=== PATIENT | female | born 1950 | race Caucasian/White ===

== ENCOUNTER → 2017-11-07 | Outpatient (CLI) | payer MEDICARE ==
--- NOTE | 2017-11-08 09:02 | MM ---
Reason for exam: screening (asymptomatic). Last mammogram was performed 1 year and 10 months ago. History: Patient is postmenopausal. Benign cyst aspiration of the right breast, 2005. Excisional biopsy of the left breast, 1989. Physical Findings: A clinical breast exam by your physician is recommended on an annual basis and results should be correlated with mammographic findings. MG 3D Screening Mammo W/Cad Bilateral CC, MLO, and XCCL view(s) were taken. Prior study comparison: January 11, 2016, bilateral MG 3d screening mammo w/cad. January 23, 2011, mammogram, performed at [facility]. The breast tissue is heterogeneously dense. This may lower the sensitivity of mammography. There are typically benign round calcifications in both breasts. Previous mammotome biopsy in the left breast. There is no discrete abnormality. There are grouped dystrophic calcifications in the left breast centrally. ASSESSMENT: Benign, BI-RAD 2 RECOMMENDATION: Routine screening mammogram of both breasts in 1 year.
== END | disposition home or self-care (01) ==
LOC: RADMAMWWP 11:13
PROVIDERS: ATTEND Family Medicine
DX: Z12.31 Encounter for screening mammogram for malignant neoplasm of breast (principal)
CPT/HCPCS: 77063; 77067

== ENCOUNTER → 2018-04-08 | Outpatient (CLI) | payer MEDICARE ==
--- NOTE | 2018-04-08 10:50 | USB ---
Reason for exam: clinical finding. History: Patient is postmenopausal. Benign cyst aspiration of the right breast, 2005. Excisional biopsy of the left breast, 1989. Physical Findings: Nurse Summary: 2.5cm nodule in the right breast at 3 o'clock (nurse dw). US Breast RT Right complete breast ultrasound includes all four quadrants, the retroareolar region and axilla. Finding demonstrates a 5.0 x 3.6 x 1.5cm oval, mixed lesion at 1 o'clock and a 1.5 x 1.9 x 0.9cm oval, cystic, complex lesion at 2 o'clock, these masses converge although these may represent recurrent abscess, biopsy is suggested after treatment with antibiotic, a 2.5 x 1.2cm oval, mixed lesion at 8:30 with solid node for which a biopsy is recommended, duct ectasia at 10 o'clock and at retroareolar complex area includes 8-9 o'clock and 2 o'clock. Diffuse edema is noted. These results were verbally communicated with the patient and result sheet given to the patient on 04/08/18. ASSESSMENT: Suspicious, BI-RAD 4 RECOMMENDATION: Ultrasound core biopsy of the right breast. (2 sites) Called with mammographic findings and has scheduled an appointment for the patient for 04/15/[address] Nazario. PRELIMINARY REPORT CALLED AND FAXED TO DR. NAZARIO ON 04/08/18.
== END ==
LOC: RADMAMWWP 08:54
PROVIDERS: ATTEND Family Medicine
DX: N61.1 Abscess of the breast and nipple (principal)

== ENCOUNTER → 2018-05-14 | Day surgery (SDC) | payer MEDICARE ==
[2018-05-14 11:36] VITALS: RESP 16; BMI 44.1
[2018-05-14 13:33] VITALS: BP 139/71; PULSE 57; TEMP 97.7
--- NOTE | 2018-05-14 13:49 | USB ---
ULTRASOUND GUIDED FNA AND CORE BIOPSY RIGHT BREAST: CLINICAL HISTORY: Abnormal ultrasound recommending biopsy of the 1:00\2:00 and 8 :30 nodule FINDINGS: The procedure was explained to the patient. The risks, complications, benefits and alternatives were discussed and any questions were answered. Informed consent was obtained. Patient was placed supine on the ultrasound table and prepped and draped in the usual sterile fashion. Utilizing a 14 gauge needle, 4 passes were made into the each of the requested nodules. Surgical clip was placed post procedure. Additional FNA sample for fluid analysis was obtained from the 8:30 o'clock position nodule Postprocedural mammogram demonstrated the clip to be in ideal position. Patient was stable throughout the procedure. Pathology is pending. All elements of maximal barrier and sterile technique were utilized. IMPRESSION: 1. Successful ultrasound guided FNA and core biopsy of the requested right breast lesions. Pathology Results: Benign RIGHT BREAST, 8:00, ASPIRATE: Predominantly macrophages and acute inflammatory cells. No cytologically malignant cells identified. A. RIGHT BREAST, 2:00, ULTRASOUND GUIDED CORE BIOPSY: Fat necrosis with prominent histiocytes, fibrosis and inflammation suggestive of trauma versus ruptured cyst. Negative for malignancy. B. RIGHT BREAST, 8:00, ULTRASOUND GUIDED CORE BIOPSY: Fat necrosis with prominent histiocytes, fibrosis and inflammation suggestive of trauma versus ruptured cyst. Negative for malignancy. Recommendation Return to routine screening mammogram in 7 months. Back on schedule for October 2018. Manage clinically. ELEAZARD
--- NOTE | 2018-05-14 14:53 | MM ---
Reason for exam: additional evaluation requested from abnormal screening. Last mammogram was performed 6 months ago. History: Patient is postmenopausal. Benign cyst aspiration of the right breast, 2005. Excisional biopsy of the left breast, 1989. MG Diagnostic Mammo RT Wo CAD CC and MLO view(s) were taken of the right breast. Prior study comparison: November 07, 2017, bilateral MG 3d screening mammo w/cad. January 11, 2016, bilateral MG 3d screening mammo w/cad. ASSESSMENT: Post procedure mammogram for marker placement RECOMMENDATION: Ultrasound of the right breast in 6 months. PENDING PATHOLOGY RESULTS.
== END ==
LOC: RADUSWWP 11:19
PROVIDERS: ATTEND Nurse Practitioner Adult Health
DX: N64.1 Fat necrosis of breast (principal); N60.31 Fibrosclerosis of right breast; R92.8 Other abnormal and inconclusive findings on diagnostic imaging of breast; Z88.1 Allergy status to other antibiotic agents; Z88.8 Allergy status to other drugs, medicaments and biological substances
CPT/HCPCS: 88305; 88173; 77065; 19083; 19084 ×2; A4648; J2001; 76942

== ENCOUNTER → 2019-03-26 | Outpatient (CLI) | payer MEDICARE | END | disposition home or self-care (01) | LOC: RADMAMWWP 12:52 | PROVIDERS: ATTEND Family Medicine | DX: Z53.9 Procedure and treatment not carried out, unspecified reason (principal) ==

== ENCOUNTER → 2019-03-27 | Outpatient (CLI) | payer MEDICARE ==
[2019-03-27 10:18] VITALS: BP 155/89; PULSE 65; RESP 18; TEMP 98.1; BMI 48.6
--- NOTE | 2019-03-27 11:23 | P.GSHP ---
History of Present Illness H&P Date: 03/27/19 Chief Complaint: abcesses both breast Gauri is a 68 year old white female with a history of an abscess in the right periareolar area which started approximately 9 months ago. At that time she had surgical excision of this site and then approximately a month later a second area of abscess occurred inferior in location in the periareolar region. She ultimately went to the operating room one time. The second area seemed to tunnel to the incision and drained through the initial incision. She had this packed in the primary care doctor's office, and this has been draining and nonhealing since approximately August 2018. She states cultures did show VRE and she was treated with a course of Levaquin. She was also treated with Jose Luis GREWAL and Dr. Nazario's office. She has not seen an infectious disease doctor. The patient's most recent mammogram and ultrasound were approximately a year ago. The studies were done at [facility] . She has not had any fever or chills. No history of any trauma to the breast. She did have an abscess in the left breast in the past but not recently. She has no evidence of any infection and place else in her body. Bilateral mammogram on 5917 this was BIRADS 2 and routine screening of both breasts in 1 year was recommended. The patient then on had a right breast ultrasound this was considered suspicious BIRADS 4 and ultrasound-guided core biopsy of the right breast 2 sites was recommended. 5 x 1.5 cm lipomatous lesion at 1:00 and a 1.9 x 1.5 cystic complex lesion at 2:00 these masses converted show that he may represent recurrent abscess and biopsy was suggested after treatment with antibiotics a 2.5-1.2 cm lipomatous lesion at 8:30 with a solid node which a biopsy was recommended. She subsequently in May 2018 underwent ultrasound-guided FNA and core biopsy of the right breast. The prostate o'clock was predominantly macrophages and acute inflammatory cells Right breast 2:00 was fat necrosis with prominent histiocytes Right breast 8:00 core biopsy showed fat necrosis with prominent histiocytes all were negative for malignancy and routine screening in 7 months was recommended. The patient has not had any further radiographic evaluation since May 2018. The patient does not drink caffeinated beverages. She does not eat chocolate on a regular basis. She does not smoke she stopped 5 years ago. She is not exposed regularly to secondhand smoke. She is not taking any hormones. Family History: father: pancreatic sister: cervical Hormonal history: menarche: 10 breast fed: no, age at first : 18 menopause: 46 BCP: none hormones: none Surgical history: 1. Tonsillectomy 2. Appendectomy 3. Bilateral knee replacement 4. Cataract surgery Medical history: 1.HTN 2. back pain/ arthritis Social: smoke:stopped 5 years ago alcohol: Occasional Marijuana: Negative - Constitutional Constitutional: Denies chills, Denies fever - EENT Comment: Cataract surgery Ears: deny: decreased hearing, tinnitus Ears, nose, mouth and throat: Reports sinus pressure, Denies headache, Denies sore throat - Breasts Breasts: bilateral: as per HPI - Cardiovascular Cardiovascular: Reports high blood pressure - Respiratory Comment: former smoker Respiratory: Reports cough - Gastrointestinal Gastrointestinal: Denies abdominal pain, Denies diarrhea, Denies nausea, Denies vomiting - Genitourinary (Female) Genitourinary: Denies dysuria, Denies hematuria - Menstruation Menstruation: Reports postmenopausal - Musculoskeletal Comment: back pain - Integumentary Integumentary: Denies pruritus, Denies rash - Neurological Neurological: Denies numbness, Denies weakness - Psychiatric Psychiatric: Reports anxiety, Reports depression - Endocrine Endocrine: Reports weight change - Hematologic/Lymphatic Comment: none - Allergic/Immunologic Allergic/Immunologic: Reports seasonal allergies Past Medical History Past Medical History: Hyperlipidemia, Hypertension, Pneumonia Additional Past Medical History / Comment(s): Arthritis History of Any Multi-Drug Resistant Organisms: None Reported Past Surgical History: Appendectomy, Breast Surgery, Heart Catheterization, Joint Replacement, Orthopedic Surgery, Tonsillectomy Additional Past Surgical History / Comment(s): Hx. right cyst aspiration, left breast excisional bx. Bilateral knee replacement Past Anesthesia/Blood Transfusion Reactions: Postoperative Nausea & Vomiting (PONV) Past Psychological History: No Psychological Hx Reported Smoking Status: Former smoker Past Alcohol Use History: Occasional Past Drug Use History: None Reported Medications and Allergies Home Medications Medication Instructions Recorded Confirmed Type Enalapril [Vasotec] 20 mg PO DAILY 05/06/18 03/27/19 History Naproxen Sodium [Aleve] 220 mg PO DAILY PRN 05/06/18 03/27/19 History PARoxetine [Paxil] 20 mg PO DAILY 05/06/18 03/27/19 History Simvastatin [Zocor] 40 mg PO HS 05/06/18 03/27/19 History Cholecalciferol [Vitamin D3 (25 5,000 unit PO DAILY 03/27/19 03/27/19 History Mcg = 1000 Iu)] Allergies Allergy/AdvReac Type Severity Reaction Status Date / Time acetaminophen [From NyQuil] Allergy Dyspnea Verified 03/27/19 10:19 dextromethorphan Allergy Dyspnea Verified 03/27/19 10:19 [From NyQuil] doxylamine [From NyQuil] Allergy Dyspnea Verified 03/27/19 10:19 pseudoephedrine [From NyQuil] Allergy Dyspnea Verified 03/27/19 10:19 tetracycline AdvReac Nausea Verified 03/27/19 10:19 Surgical - Exam Vital Signs Temp Pulse Resp BP Pulse Ox 98.1 F 65 18 155/89 96 03/27/19 10:14 03/27/19 10:14 03/27/19 10:14 03/27/19 10:14 03/27/19 10:14 BMI 48.7 - General obese - Eyes normal ocular movement - ENT no hearing loss, no congestion - Neck no masses, trachea midline - Respiratory normal respiratory effort, clear to auscultation - Cardiovascular Rhythm: regular Heart Sounds: normal: S1, S2 - Abdomen Abdomen: soft, non tender, no guarding, no rigid, no rebound - Integumentary Breast examination Breast size 50 DDD Right breast: Multi-positional exam reveals a well-healed scar in the right breast superior to the periareolar region and approximately a centimeter and a half inferior to this an open wound with purulent drainage and no definite dominant lumps or masses are felt in the breast Right axilla: No adenopathy of concern Left breast: Multi-positional exam no dominant masses or nodules of concern Left axilla: No adenopathy of concern Results No recent mammogram or ultrasound performed Assessment and Plan Assessment: Impression: 1. Chronic right breast abscess 2. Fibrocystic breast changes 3. Family history of cancer 4. Degenerative disc disease with back pain 5. Arthritis 6. History of pneumonia in the past 7. Anxiety/depression 8. BMI 48.7 Plan: 1. Cultures right breast abscess 2. Attempt at ultrasound to see if there is a pocket which can be drained in the right breast, either by ultrasound or in OR 3. Medical clearance for surgical drainage if necessary 4. Medical management of medical conditions 5. Consider infectious disease consult as this is a chronic abscess Cc: Dr. Major Nazario
== END | disposition home or self-care (01) ==
LOC: WWCWWP 09:48
PROVIDERS: ATTEND Surgery
DX: N64.9 Disorder of breast, unspecified (principal)
CPT/HCPCS: 87070; 87075; 87205

== ENCOUNTER → 2019-03-27 | Outpatient (CLI) | payer MEDICARE ==
--- NOTE | 2019-03-27 12:25 | USB ---
Reason for exam: clinical finding. History: Patient is postmenopausal. Benign US breast needle core RT of the right breast, May 14, 2018. Benign US breast needle core addl RT of the right breast, May 14, 2018. Benign US breast needle core addl RT of the right breast, May 14, 2018. Benign cyst aspiration of the right breast, 2005. Excisional biopsy of the left breast, 1989. US Breast Limited RT Right limited breast ultrasound including focal area of concern, retroareolar and axilla demonstrates a 1.6 x 2.5 x 1.9cm irregular, hypoechoic, vascular lesion at 1-2 o'clock, appears as an abscess sonographically (visibly draining per nursing) and a ductal ectasia at 9 o'clock, extent of edema in the 2 o'clock and 9 o'clock positions. These results were verbally communicated with the patient and result sheet given to the patient on 03/27/19. ASSESSMENT: Benign, BI-RAD 2 RECOMMENDATION: Surgical consultation of both breasts. Surgical management, thick prevalent fluid collection appears too complex for percutaneous drainage.
== END | disposition home or self-care (01) ==
LOC: RADUSWWP 11:27
PROVIDERS: ATTEND Surgery
DX: N64.52 Nipple discharge (principal)

== ENCOUNTER → 2019-04-29 | Outpatient (CLI) | payer MEDICARE ==
--- NOTE | 2019-04-29 10:25 | USB ---
Reason for exam: clinical finding. History: Patient is postmenopausal. Benign US breast needle core RT of the right breast, May 14, 2018. Benign US breast needle core addl RT of the right breast, May 14, 2018. Benign US breast needle core addl RT of the right breast, May 14, 2018. Benign cyst aspiration of the right breast, 2005. Excisional biopsy of the left breast, 1989. Physical Findings: Nurse Summary: palpabl lump (nurse kp). US Breast Limited RT Right limited breast ultrasound including focal area of concern, retroareolar and axilla demonstrates a 5.0 x 1.7 x 4.0cm irregular, enlarging, solid, hypoechoic, vascular lesion at 1 o'clock, increased in size when compared to previous and a dilated duct at the posterior nipple. These results were verbally communicated with the patient and result sheet given to the patient on 04/29/19. ASSESSMENT: Suspicious, BI-RAD 4 Suspicious, BI-RAD 4 abnormality (abscess) RECOMMENDATION: Surgical consultation and localization and excision of the right breast. Called Dr. Phillips's office with mammographic findings. PRELIMINARY REPORT CALLED AND FAXED TO DR. PHILLIPS ON 04/29/19.
== END | disposition home or self-care (01) ==
LOC: RADUSWWP 08:50
PROVIDERS: ATTEND Surgery
DX: R92.8 Other abnormal and inconclusive findings on diagnostic imaging of breast (principal)

== ENCOUNTER 2019-04-30 06:23 | Day surgery (SDC) | payer MEDICARE ==
--- NOTE | 2019-04-29 17:32 | P.PN ---
Beth Astorga is a 68 year old white female with a history of an abscess in the right breast periareolar area which started approximately 9 months ago. At that time she had surgical excision of this site and then approximately a month later a second area of abscess occurred inferior in location in the periareolar region. She ultimately went to the operating room one time. The second area seemed to tunnel to the incision and drained through the initial incision. She had this packed in the primary care doctor's office, and this has been draining and nonhealing since approximately August 2018. She states cultures did show VRE and she was treated with a course of Levaquin. She was also treated with Rocephin IM in Dr. Nazario's office. She has not seen an infectious disease doctor. The patient's most recent mammogram and ultrasound were approximately a year ago. The studies were done at [facility] . She has not had any fever or chills. No history of any trauma to the breast. She did have an abscess in the left breast in the past but not recently. She has no evidence of any infection and place else in her body. Bilateral mammogram on 5917 this was BIRADS 2 and routine screening of both breasts in 1 year was recommended. The patient then on 04/18 had a right breast ultrasound this was considered suspicious BIRADS 4 and ultrasound-guided core biopsy of the right breast 2 sites was recommended. Right breast 2:00 was fat necrosis with prominent histiocytes Right breast 8:00 core biopsy showed fat necrosis with prominent histiocytes all were negative for malignancy and routine screening in 7 months was recommended. The patient was seen on 03/27/2019 for chronic abscess of the right breast. She had right breast ultrasound on 12/18. This revealed a 1.6 x 2.5 x 1.9 cm irregular hypoechoic vascular lesion in 1 to 2:00 which appeared to be an abscess sonographically. This was visibly draining at the time. The patient had cultures obtained on . The cultures revealed Proteus mirabilis sensitive to cefoxitin and piperacillin/tazobactam. The patient was notified but stated at that point that the area of drainage had ceased and she was feeling better. She tentatively was scheduled for incision and drainage in the operating room and returned for repeat ultrasound prior to I&D as the drainage had stopped. However, within the last several days the drainage started again. The patient did not report any fever or chills. The patient had a right breast ultrasound on 04-29-19 which showed increased in the size of the abscess cavity in the right breast. The patient does not drink caffeinated beverages. She does not eat chocolate on a regular basis. She does not smoke she stopped 5 years ago. She is not exposed regularly to secondhand smoke. She is not taking any hormones. Family History: father: pancreatic cancer sister: cervical cancr Hormonal history: menarche: 10 breast fed: no, age at first : 18 menopause: 46 BCP: none hormones: none Surgical history: 1. Tonsillectomy 2. Appendectomy 3. Bilateral knee replacement 4. Cataract surgery Medical history: 1.HTN 2. back pain/ arthritis Social: smoke:stopped 5 years ago alcohol: Occasional Marijuana: Negative - Constitutional Constitutional: Denies chills, Denies fever - EENT Comment: Cataract surgery Ears: deny: decreased hearing, tinnitus Ears, nose, mouth and throat: Reports sinus pressure, Denies headache, Denies sore throat - Breasts Breasts: bilateral: as per HPI - Cardiovascular Cardiovascular: Reports high blood pressure - Respiratory Comment: former smoker Respiratory: Reports cough - Gastrointestinal Gastrointestinal: Denies abdominal pain, Denies diarrhea, Denies nausea, Denies vomiting - Genitourinary (Female) Genitourinary: Denies dysuria, Denies hematuria - Menstruation Menstruation: Reports postmenopausal - Musculoskeletal Comment: back pain - Integumentary Integumentary: Denies pruritus, Denies rash - Neurological Neurological: Denies numbness, Denies weakness - Psychiatric Psychiatric: Reports anxiety, Reports depression - Endocrine Endocrine: Reports weight change - Hematologic/Lymphatic Comment: none - Allergic/Immunologic Allergic/Immunologic: Reports seasonal allergies Past Medical History Past Medical History: Hyperlipidemia, Hypertension, Pneumonia Additional Past Medical History / Comment(s): Arthritis History of Any Multi-Drug Resistant Organisms: None Reported Past Surgical History: Appendectomy, Breast Surgery, Heart Catheterization, Joint Replacement, Orthopedic Surgery, Tonsillectomy Additional Past Surgical History / Comment(s): Hx. right cyst aspiration, left breast excisional bx. Bilateral knee replacement Past Anesthesia/Blood Transfusion Reactions: Postoperative Nausea & Vomiting (PONV) Past Psychological History: No Psychological Hx Reported Smoking Status: Former smoker Past Alcohol Use History: Occasional Past Drug Use History: None Reported Objective - Vital Signs Vital signs: Intake & Output 04/28/19 04/29/19 04/29/19 18:59 06:59 18:59 Weight 143.789 kg - Exam BMI 48.2 - Constitutional General appearance: Present: obese - EENT Eyes: Present: EOMI ENT: Present: hearing grossly normal - Neck Neck: Present: normal ROM - Respiratory Respiratory: bilateral: CTA - Cardiovascular Rhythm: regular Heart sounds: normal: S1, S2 - Gastrointestinal General gastrointestinal: Present: soft - Integumentary Integumentary: Present: normal turgor - Musculoskeletal Musculoskeletal: Present: gait normal - Psychiatric Psychiatric: Present: A&O x's 3, appropriate affect, intact judgment & insight - Additional findings Additional findings: Breast examination: Breast size: 50 triple D Right breast: Multiple positional exam without scar in the right breast superior to the periareolar region and approximately center and a half inferior to this an open wound with purulent drainage and approximately a 2 x 3 cm localized swelling which is believed to be in continuity with the area of drainage Right axilla: No adenopathy of concern {: Multiple positional exam no dominant masses or nodules of concern Left axilla: No adenopathy of concern Assessment and Plan Assessment: Impression: 1. Chronic right breast abscess 2. Culture positive for Proteus 3. Family history of cancer 4. Degenerative disc disease 5. Arthritis 6. Pneumonia in the past 7. Anxiety/depression 8. Obesity, BMI 48.7 Plan: 1. Cultures right breast abscess reviewed 2. Ultrasound reviewed 3. Medical management of medical conditions 4. Incision and drainage in the operating room of the area of concern 5. Consider infectious disease consult Cc: Dr. Major Nazario,
[~2019-04-30 06:23] MED LIST: DEXAMETHASONE SOD PHOSPHATE 10 MG/ML 1 ML VIAL IV ONE; HEPARIN SODIUM,PORCINE 5,000 UNIT/ML 1 ML VIAL SQ ONE; HYDROmorphone 0.5 MG/0.5 ML SYRINGE IVP PRN; LACTATED RINGERS 1,000 ML IV SCH; LIDOCAINE 1% 20 ML VIAL (10MG/ML) FOR IV START INTRADERMA PRN; ONDANSETRON 4 MG/2 ML VIAL IVP ONE; Pre Op ABX Message 1 EACH MISC MISCELLANE ONE; SCOPOLAMINE 1.5MG/72HR PATCH TRANSDERM ONE
[2019-04-30] MEDS ORDERED: LACTATED RINGERS 1,000 ML IV ONE (06:42)
[2019-04-30] MEDS ORDERED: PIPERACILLIN-TAZOBACTAM 3.375 GM in SODIUM CHLORIDE 0.9% 100 ML IVPB STA (07:11)
[2019-04-30] MEDS ORDERED: SUCCINYLCHOLINE CHLORIDE VIAL 200 MG/10 ML VIAL IV ONE (07:23)
[2019-04-30] MEDS ORDERED: ePHEDrine SULFATE/0.9% NACL/PF 50 MG/5 ML SYRINGE IV ONE (07:23)
[2019-04-30] MEDS ORDERED: LIDOCAINE 1% INJ 10MG/ML (20 ML MDV) ONE (07:23)
[2019-04-30] MEDS ORDERED: PROPOFOL 10 MG/ML 20 ML VIAL IV ONE (07:23)
[2019-04-30] MEDS ORDERED: MIDAZOLAM 2 MG/2 ML VIAL ONE (07:23)
[2019-04-30] MEDS ORDERED: HEPARIN SODIUM,PORCINE 5,000 UNIT/ML 1 ML VIAL SQ ONE (07:30)
--- NOTE | 2019-04-30 08:46 | P.OP ---
Date of Procedure: 04/30/19 Preoperative Diagnosis: Chronic abscess right breast periareolar area Postoperative Diagnosis: Same Procedure(s) Performed: Incision and drainage into chronic abscess cavity with removal of the thickened cavity wall Anesthesia: LANIEA Surgeon: Nadiya Phillips Estimated Blood Loss (ml): 5 IV fluids (ml): 500 Pathology: other (Thickened abscess cavity wall) Condition: stable Disposition: same day Indications for Procedure: 68-year-old white female with chronic right breast abscess, treated with multiple antibiotics and persistent noted on ultrasound as well as drainage from the area Operative Findings: Thickened abscess cavity wall no purulence noted Description of Procedure: Patient is a white female who presented with a chronic right breast abscess. This had been treated with multiple antibiotics and an attempt approximately several months ago with I&D. Despite this the patient has persistent drainage from this site. Most recent cultures revealed Proteus mirabilis. The patient was taken to the operating room and following induction of anesthesia the right breast was prepped and draped in a sterile fashion. Periareolar incision was made. This was cut into the thickened breast tissue. There was marked thickening of the area with a loculated small pockets throughout the thickened chavira of the abscess cavity but no discrete purulence noted. The wall of the cavity encompassed an area approximately 15 cm x 15 cm. The thickened wall was excised where possible for culture and biopsy. Hemostasis was attained using the Harmonic scalpel. The wound was well irrigated using a liter of saline. A portion of the wall was sent for culture and the remainder sent for biopsy. The thickened wall extended up under the nipple and this area was excised as well and debrided. Following this after we assured that hemostasis was attained the wound was packed using 2 Kerlix. The patient tolerated the procedure in stable condition. All instrument and sponge counts were correct at the end of the case.
--- NOTE | 2019-04-30 08:49 | P.DS ---
Providers Attending physician: Nadiya Phillips Primary care physician: Major Nazario Plan - Discharge Summary Discharge Rx Participant: No New Discharge Prescriptions: No Action Simvastatin [Zocor] 40 mg PO HS PARoxetine [Paxil] 20 mg PO HS Naproxen Sodium [Aleve] 220 mg PO DAILY PRN PRN Reason: Pain Enalapril [Vasotec] 20 mg PO HS Cholecalciferol [Vitamin D3 (25 Mcg = 1000 Iu)] 5,000 unit PO DAILY Discharge Medication List Enalapril [Vasotec] 20 mg PO HS 05/06/18 [History] Naproxen Sodium [Aleve] 220 mg PO DAILY PRN 05/06/18 [History] PARoxetine [Paxil] 20 mg PO HS 05/06/18 [History] Simvastatin [Zocor] 40 mg PO HS 05/06/18 [History] Cholecalciferol [Vitamin D3 (25 Mcg = 1000 Iu)] 5,000 unit PO DAILY 03/27/19 [History] Follow up Appointment(s)/Referral(s): Nadiya Phillips MD [STAFF PHYSICIAN] - 1-2 Days Activity/Diet/Wound Care/Special Instructions: Do not drive today, do not drive if using narcotic pain medicine wear support bra at all times when she goes home Patient may shower after 48 hours Patient discharged on Augmentin Discharge Disposition: HOME SELF-CARE
[2019-04-30 09:03] VITALS: TEMP 96.8
[2019-04-30 10:58] VITALS: BP 111/65; PULSE 63; RESP 18
== END 2019-04-30 11:25 | disposition home or self-care (01) ==
LOC: OR 06:23
PROVIDERS: ATTEND Surgery
DX: N61.1 Abscess of the breast and nipple (principal); B96.4 Proteus (mirabilis) (morganii) as the cause of diseases classified elsewhere; I10 Essential (primary) hypertension; E78.5 Hyperlipidemia, unspecified; M46.96 Unspecified inflammatory spondylopathy, lumbar region; F41.9 Anxiety disorder, unspecified; F32.9 Major depressive disorder, single episode, unspecified; E66.9 Obesity, unspecified; Z68.42 Body mass index [BMI] 45.0-49.9, adult; Z87.01 Personal history of pneumonia (recurrent); Z87.891 Personal history of nicotine dependence; Z80.9 Family history of malignant neoplasm, unspecified; Z96.653 Presence of artificial knee joint, bilateral; Z98.49 Cataract extraction status, unspecified eye; Z79.1 Long term (current) use of non-steroidal anti-inflammatories (NSAID); Z79.899 Other long term (current) drug therapy; Z88.1 Allergy status to other antibiotic agents; Z88.8 Allergy status to other drugs, medicaments and biological substances
CPT/HCPCS: 19120; 88304; 87070; 87205; 87075; 87077; 87186; J2543; J2250; J0330; J1644; J1100; J2405; J2001; J2704

== ENCOUNTER → 2019-05-01 | Outpatient (CLI) | payer MEDICARE ==
[2019-05-01 12:42] VITALS: BP 95/63; PULSE 57; RESP 18; TEMP 97.6; BMI 48.2
--- NOTE | 2019-05-01 13:05 | P.PN ---
Progress Note - Text Progress Note Date: 05/01/19 Gauri is a 68-year-old white female status post right breast incision and drainage of an abscess cavity with resection of the wall of the cavity on [id number]. She presents today for packing to be changed. She is doing well without complaints. Physical examination: Right breast: Incision clean and dry, packing is removed and the wound appears to be clean granulation tissue and no evidence of any infection or bleeding The packing was applied this is a moist Kerlix and approximately three quarters of the Kerlix was able to be placed. Impression: 1. Patient doing well status post I&D of chronic abscess with resection of wall the abscess cavity. 2. No evidence of infection Plan: 1. Patient on Augmentin at home continue into prescription completed 2. Packing changed daily 3. Follow-up next week CC: DR. Nazario
== END ==
LOC: WWCWWP 12:30
PROVIDERS: ATTEND Surgery
DX: Z53.9 Procedure and treatment not carried out, unspecified reason (principal)

== ENCOUNTER → 2019-05-08 | Outpatient (CLI) | payer MEDICARE ==
[2019-05-08 11:58] VITALS: BP 158/93; PULSE 54; RESP 20; TEMP 97.8; BMI 48.2
--- NOTE | 2019-05-08 12:09 | P.PN ---
Progress Note - Text Progress Note Date: 05/08/19 Gauri is a 68-year-old white female status post incision and drainage of a large right breast abscess performed on 04-30-19. Is doing well at this time and is continuing packing changes on a daily basis. She's had no fever or chills. No erythema of the breast. She did finish a course of antibiotic therapy, Augmentin. Pathology report revealed pigmented macrophages and occasional mixed inflammatory cells Physical exam: Area of the right breast packing changed Clean granulation tissue at wound base No evidence of active infection at this time Impression: 1. Patient doing well status post excision of abscess cavity 3. Cultures positive for Proteus mirabilis, coag-negative staph, and anaerobic gram-positive cocci Name: 1. Continue present dressing changes 2. We'll consider infectious disease consult 3. Follow-up here in 2 weeks Cc: Dr. Major Nazario
== END | disposition home or self-care (01) ==
LOC: WWCWWP 11:21
PROVIDERS: ATTEND Surgery
DX: Z53.9 Procedure and treatment not carried out, unspecified reason (principal)

== ENCOUNTER → 2019-05-23 | Outpatient (CLI) | payer MEDICARE ==
[2019-05-23 16:24] VITALS: BP 131/71; PULSE 68; RESP 20; TEMP 98; BMI 48.3
--- NOTE | 2019-05-23 16:33 | P.PN ---
Subjective Progress Note Date: 05/23/19 Principal diagnosis: Abscess right breast status post incision and drainage, new area of firmness near the site Gauri is a 68-year-old white female status post incision and drainage of a large right breast abscess performed on 04-30-19. She Is doing well at this time and is continuing packing changes on a daily basis. She's had no fever or chills. No erythema of the breast. She is not taking any antibiotics at this time. The patient does note that approximately 2 days ago there was some increasing firmness in the lateral aspect of the breast near the wound site. Pathology report revealed pigmented macrophages and occasional mixed inflammatory cells Physical exam: Area of the right breast packing changed Clean granulation tissue at wound base No evidence of active infection at this time Physical exam: Lungs: Clear Heart: Regular rate and rhythm right breast abscess drainage site clean and dry good granulation tissue and no evidence of any infection The patient notes some firmness in the lateral periareolar region on the right. Examination reveals firmness at this site to be approximately 3 cm x 2 cm. The area was aspirated to ascertain if there was any purulent drainage from the firm area. No cement possible was obtained. This appeared to be scar tissue and was sent for cultures. Impression: 1. Healing right breast at I&D abscess site 2. New area of firmness lateral to the healing wound/ probable scar tissue Plan: 1. Await culture results 2. Follow-up one week 3. Continue present therapy Cc: Dr. Major Nazario Objective - Vital Signs Vital signs: Intake & Output 05/22/19 05/23/19 05/23/19 18:59 06:59 18:59 Weight 144.242 kg
--- NOTE | 2019-05-23 16:36 | P.PCN ---
Date of Procedure: 05/23/19 Preoperative Diagnosis: firmness right breast lateral aspect of I&D wound Postoperative Diagnosis: same Procedure(s) Performed: attempted aspiration of the firm area right breast, rule out purulence Surgeon: Nadiya Phillips Pathology: other (breast tissue) Condition: stable Disposition: same day Indications for Procedure: Firmness in the lateral aspect of the right breast adjacent to healing wound from incision and drainage site Operative Findings: foamy breast tissue Description of Procedure: The area of concern in the right breast was prepped using alcohol. An 18-gauge needle on a 10 mL syringe was inserted into the area of concern. Multiple passes were obtained and tissue was removed. No definite purulence was identified. This was sent however for culture. It was felt the area most likely represents scar tissue related to the prior wound. The patient will follow up on results of this next week.
== END | disposition home or self-care (01) ==
LOC: WWCWWP 04-29 08:49
PROVIDERS: ATTEND Surgery
DX: N60.11 Diffuse cystic mastopathy of right breast (principal)
CPT/HCPCS: 10160; 87070; 87075; 87205; 88173

== ENCOUNTER → 2019-06-05 | Outpatient (CLI) | payer MEDICARE ==
[2019-06-05 13:46] VITALS: BP 142/77; PULSE 49; RESP 18; TEMP 98.1
--- NOTE | 2019-06-05 14:16 | P.PN ---
Subjective Progress Note Date: 06/05/19 Principal diagnosis: Saline abscess right breast status post incision and [id number] Evelyn is a 68-year-old white female status post incision and drainage of a large abscess in the right breast on [id number]. On 05/2219 there was some concern that there was some firmness of a portion of the wall of the abscess cavity and aspiration was performed. Aspirate revealed aggregates of planned ductal an apocrine cells with abundant foamy histiocytes consistent with proliferative fibrocystic changes. Cultures from that date did not reveal any microorganisms of concern. The patient is not having any fever or chills or any problems at this time related to the wound. She has seen Dr. Vo in consultation and her dressing was changed to a silver alginate dressing. Objective - Vital Signs Vital signs: Vital Signs Temp 98.1 F 06/05/19 13:43 Pulse 49 L 06/05/19 13:43 Resp 18 06/05/19 13:43 BP 142/77 06/05/19 13:43 Pulse Ox 96 06/05/19 13:43 Intake & Output 06/04/19 06/05/19 06/05/19 18:59 06:59 18:59 Weight 144.242 kg - Exam BMI 48.4 - Constitutional General appearance: Present: obese - EENT Eyes: Present: EOMI ENT: Present: hearing grossly normal - Respiratory Respiratory: bilateral: CTA - Cardiovascular Rhythm: regular Heart sounds: normal: S1, S2 - Musculoskeletal Musculoskeletal: Present: gait normal - Psychiatric Psychiatric: Present: A&O x's 3, appropriate affect, intact judgment & insight - Additional findings Additional findings: Right breast: Area of abscess cavity healing well no evidence of infection noted on today's exam Patient has silver alginate dressing in place this was not changed Assessment and Plan Assessment: Impression: 1. Resolving right breast abscess/abscess cavity is clean with silver alginate dressing 2. Patient is seeing Dr. Vo 3. Patient is concerned about breast reduction at this time breast size is 50 2D 4. Back pain related to large breast 5. shoulder notching 6. BMI 48.4 Plan: 1. Continue present therapy 2. Follow-up in 1 month 3. We will discuss with Dr. Diana his pre-operative requirements prior to breast reduction and the patient no other Visit Cc: Dr. Major Nazario
== END | disposition home or self-care (01) ==
LOC: WWCWWP 13:17
PROVIDERS: ATTEND Surgery
DX: Z53.9 Procedure and treatment not carried out, unspecified reason (principal)

== ENCOUNTER → 2019-07-17 | Outpatient (CLI) | payer MEDICARE ==
[2019-07-17 14:57] VITALS: BP 122/81; PULSE 67; RESP 18; TEMP 97.5
--- NOTE | 2019-07-17 15:34 | P.PN ---
Progress Note - Text Progress Note Date: 07/17/19 Evelyn is a 68-year-old white female status post incision and drainage of a large abscess in the right breast on [id number]. On 05/2219 there was some concern that there was some firmness of a portion of the wall of the abscess cavity and aspiration was performed. Aspirate revealed aggregates of ductal and apocrine cells with abundant foamy histiocytes consistent with proliferative fibrocystic changes. Cultures from that date did not reveal any microorganisms of concern. The patient is not having any fever or chills or any problems at this time related to the wound. She has seen Dr. Vo in consultation and her dressing was changed to a silver alginate dressing. The patient states the area of concern is getting smaller. She is continuing to have it packed with a silver alginate dressing. The dressing is changed every other day. She is not complaining of any fever or chills. Physical exam: Lungs: Clear Heart: Regular rate and rhythm Area of opening at periareolar region right breast clean and dry packing changed Impression: 1. Patient resolving abscess right breast Plan: 1. Continue present therapy 2. Follow-up 6 weeks Cc: Dr. Major Nazario
== END ==
LOC: WWCWWP 14:08
PROVIDERS: ATTEND Surgery
DX: Z53.9 Procedure and treatment not carried out, unspecified reason (principal)

== ENCOUNTER → 2019-08-12 | Outpatient (CLI) | payer MEDICARE ==
--- NOTE | 2019-08-13 03:03 | CONS ---
CONSULTATION DATE OF SERVICE 08/12/2019. REASON FOR CONSULTATION: Suspected obstructive sleep apnea. This is a very pleasant 68-year-old female patient who follows with Dr. Nazario as her primary care provider. She has a history of hypertension, anxiety/depression, hyperlipidemia. She also has a history of an abscess of the right breast requiring surgical intervention in April 2019. During that time, she had an EKG which showed significant bradycardia and she was referred to Dr. Sargent for possible pacemaker implantation. She has since worn Holter monitors and stress testing and cardiac workup was negative according to the patient. She was, however, noted to have occasional episodes of significant bradycardia mainly at nighttime. She was referred here for suspicion of obstructive sleep apnea. She does have morbid obesity. She weighs 305 pounds. She states she has lost 30 pounds in the last several months while working on losing weight. No previous history of obstructive sleep apnea. She states her says she snores on occasion. She denies any waking up gasping or daytime sleepiness. She had, however, worked as a registered nurse on midnights for many, many years. She retired approximately 2 years ago. She is adjusting to regular sleep hours. She has occasional naps only for a half hour or 45 minutes at a time. She is able to do her day-to-day activities without any significant fatigue or sleepiness. Her Watkins Sleepiness Scale score is 5. PAST MEDICAL HISTORY: Includes morbid obesity, hypertension, hyperlipidemia, right breast abscess, bradycardia. PAST SURGICAL HISTORY: Includes incision and drainage of right breast abscess, bilateral cataracts, bilateral knee replacement, heart catheterization, appendectomy. ALLERGIES: TETRACYCLINE AND NYQUIL. HOME MEDICATIONS: Enalapril 20 mg b.i.d., Paxil 20 mg at bedtime, simvastatin 40 mg at bedtime, vitamin D supplement at bedtime. SOCIAL HISTORY: The patient has occasional alcohol use. No illicit drug use. FAMILY HISTORY: Positive for bradycardia with hypertension in her mother and 2 sisters with cardiac issues. REVIEW OF SYSTEMS: 14-point review of system was conducted. All negative other than as mentioned in the HPI, that being mainly bradycardia. PHYSICAL EXAM: Vital signs revealed blood pressure 153/91, heart rate 61, respirations 18, temperature is 97.8. She has 96% O2 saturation on room air. She is 5 feet 5 1/2 inches tall at 305 pounds with a BMI of 49.9 and a neck circumference of 18 inches. Watkins Sleepiness Scale score of 5. GENERAL APPEARANCE: A very pleasant 68-year-old female patient. Morbidly obese. In no acute distress. HEENT. Her head is normocephalic, sclerae anicteric. There is crowding in the posterior pharynx. Her neck is short, supple. Trachea midline. LUNGS: Clear anterior and posteriorly. Heart is regular S1, S2. ABDOMEN: Obese, soft, nontender. Bowel sounds are present. There is trace peripheral edema. No clubbing. No cyanosis. Peripheral pulses are intact. IMPRESSION: 1. Morbid obesity with suspected obesity/hypoventilation/obstructive sleep apnea syndrome. The patient found to have significant bradycardia with no noted underlying cardiac disease per previous workup. 2. Morbid obesity. 3. Hypertension. 4. Hyperlipidemia. 5. Anxiety/depression. 6. Right breast abscess requiring incision and drain, currently under treatment. 7. Osteoarthritis with bilateral knee replacement. PLAN: The patient's case was reviewed and discussed with Dr. Lieberman who is recommending a sleep study to be performed on the patient. If significant obstructive sleep apnea with high AHI score, CPAP will be recommended, possibly BiPAP. The patient verbalizes understanding and is agreeable to the plan. She is again educated regarding the importance of weight loss and maintaining adequate sleep hygiene. I, the cosigning physician, performed a history and physical examination on the patient. Lung sounds are clear. Maintained O2 saturation 98% on room air. I discussed the assessment and plan of care with my nurse practitioner, Gloria Mendoza. I attest the above consultation is dictated by her. MMODL / IJN: [id number] /
== END | disposition home or self-care (01) ==
LOC: SLEEP 13:11
PROVIDERS: ATTEND Internal Medicine Critical Care Medicine
DX: E66.01 Morbid (severe) obesity due to excess calories (principal); I10 Essential (primary) hypertension; E78.5 Hyperlipidemia, unspecified; F41.9 Anxiety disorder, unspecified; F32.9 Major depressive disorder, single episode, unspecified; N61.1 Abscess of the breast and nipple; M17.0 Bilateral primary osteoarthritis of knee; Z68.42 Body mass index [BMI] 45.0-49.9, adult; Z96.653 Presence of artificial knee joint, bilateral; Z79.899 Other long term (current) drug therapy; Z88.1 Allergy status to other antibiotic agents; Z88.8 Allergy status to other drugs, medicaments and biological substances
CPT/HCPCS: 99211

== ENCOUNTER → 2019-08-29 | Outpatient (CLI) | payer MEDICARE ==
[2019-08-29 14:18] VITALS: BP 157/86; PULSE 50; RESP 18; TEMP 97.8
--- NOTE | 2019-08-29 14:44 | P.PN ---
Subjective Progress Note Date: 08/29/19 Principal diagnosis: right breast abscess Gauri is a 68-year-old white female status post incision and drainage of a large abscess in the right breast on [id number]. On 05/2219 there was some concern that there was some firmness of a portion of the wall of the abscess cavity and aspiration was performed. Aspirate revealed aggregates of ductal and apocrine cells with abundant foamy histiocytes consistent with proliferative fibrocystic changes. Cultures from that date did not reveal any microorganisms of concern. The patient is not having any fever or chills or any problems at this time related to the wound. She has seen Dr. Vo in consultation and her dressing was changed to a silver alginate dressing. The patient states the area of concern is getting smaller it is pinpoint in nature. She is continuing to have it packed with a silver alginate dressing. The dressing is changed every other day. She is not complaining of any fever or chills. Objective - Vital Signs Vital signs: Vital Signs Temp 97.8 F 08/29/19 14:13 Pulse 50 L 08/29/19 14:13 Resp 18 08/29/19 14:13 BP 157/86 08/29/19 14:13 Pulse Ox 96 08/29/19 14:13 Intake & Output 08/28/19 08/29/19 08/29/19 18:59 06:59 18:59 Weight 138.346 kg - Exam BMI 50 - Constitutional General appearance: Present: obese - EENT Eyes: Present: EOMI ENT: Present: hearing grossly normal - Neck Neck: Present: normal ROM - Respiratory Respiratory: left: wheezing (Expiratory wheeze left base) - Cardiovascular Rhythm: regular Heart sounds: normal: S1, S2 - Integumentary Integumentary: Present: normal turgor - Musculoskeletal Musculoskeletal: Present: gait normal - Psychiatric Psychiatric: Present: A&O x's 3, appropriate affect - Additional findings Additional findings: Left breast area of prior abscess continues to be packed, the depth was measured at 1.2 cm. It is very small in diameter. Approximately 4 mm in diameter. It continues to be packed with silver alginate dressing. The dressing was changed. Assessment and Plan Assessment: Impression: 1. Patient with resolving abscess/right breast Plan: 1. Continue present therapy 2. Follow-up in 1 month 3. Bilateral mammogram soon as this area heals well enough Cc: Dr. Major Nazario Time with Patient: Less than 30
== END | disposition home or self-care (01) ==
LOC: WWCWWP 13:44
PROVIDERS: ATTEND Surgery
DX: Z53.9 Procedure and treatment not carried out, unspecified reason (principal)

== ENCOUNTER → 2019-09-18 | Outpatient (CLI) | payer MEDICARE ==
[2019-09-18 11:39] VITALS: BP 116/79; PULSE 59; RESP 18; TEMP 97.8
--- NOTE | 2019-09-18 11:55 | P.PN ---
Subjective Progress Note Date: 09/18/19 Principal diagnosis: Recurrent abscess right breast Gauri is a 68-year-old white female status post incision and drainage of a large abscess in the right breast on [id number]. She was seen most recently on . At that time the abscess cavity had almost completely healed. She was doing well but approximately a week later she noted increased drainage from the site. This site was not red. She did not have any fever or chills. She was seen in her primary care physician's office and given a prescription for Ceftan. She has finished this perscription and has had no drainage the past several days. She had cultures preformed and the results are pending. Physical Exam: right breast: no erythema, mininmal drainage at this time opening 4 mm in size Impression/Plan: 1. new drainage form the right breast I&D site 2. area to be packed 3. cultures to be obtained 4. possible evaluation again in wound clinic and at this time she wishes to wait 5. If drainage continues with consider an ultrasound of the area to evaluate for and it never pocket has formed if this is the case she may require surgical intervention. CC: Dr. Nazario encounter 15 minutes, > 50% of time in planning and counseling Objective - Vital Signs Vital signs: Vital Signs Temp 97.8 F 09/18/19 11:34 Pulse 59 L 09/18/19 11:34 Resp 18 09/18/19 11:34 BP 116/79 09/18/19 11:34 Pulse Ox 98 09/18/19 11:34 Intake & Output 09/17/19 09/18/19 09/18/19 18:59 06:59 18:59 Weight 136.078 kg
== END ==
LOC: WWCWWP 11:28
PROVIDERS: ATTEND Surgery
DX: Z53.9 Procedure and treatment not carried out, unspecified reason (principal)

== ENCOUNTER → 2019-12-26 | Outpatient (CLI) | payer MEDICARE ==
--- NOTE | 2019-12-26 14:12 | MM ---
Reason for exam: additional evaluation requested from prior study. Last mammogram was performed 1 year and 7 months ago. History: Patient is postmenopausal. Benign US breast needle core RT of the right breast, May 14, 2018. Benign US breast needle core addl RT of the right breast, May 14, 2018. Benign US breast needle core addl RT of the right breast, May 14, 2018. Benign cyst aspiration of the right breast, 2005. Excisional biopsy of the left breast, 1989. Physical Findings: Nurse did not find any significant physical abnormalities on exam. MG 3D Diag Mammo W/Cad COLIN Bilateral CC, MLO, and XCCL view(s) were taken. Spot compression LM, CC with magnification, and LM with magnification view(s) were taken of the left breast. Prior study comparison: May 14, 2018, right breast MG diagnostic mammo RT wo CAD. November 07, 2017, bilateral MG 3d screening mammo w/cad. Finding: There are segmental, linear, fine calcifications in the 12 o'clock position of the left breast consistent with prior exam. Additional calcifications present appear stable. No significant changes in finding since May 14, 2018 and November 07, 2017. These results were verbally communicated with the patient and result sheet given to the patient on 12/26/19. ASSESSMENT: Benign, BI-RAD 2 RECOMMENDATION: Routine screening mammogram of both breasts in 1 year.
== END | disposition home or self-care (01) ==
LOC: RADMAMWWP 12:46
PROVIDERS: ATTEND Surgery
DX: R92.8 Other abnormal and inconclusive findings on diagnostic imaging of breast (principal)
CPT/HCPCS: 77066; G0279; 77062

== ENCOUNTER → 2020-04-09 | Outpatient (CLI) | payer MEDICARE ==
[2020-04-09 16:02] VITALS: BP 159/89; PULSE 89; RESP 16; TEMP 99.4
--- NOTE | 2020-04-09 16:34 | P.PN ---
Subjective Progress Note Date: 04/09/20 Principal diagnosis: drainage of right breast abscess Gauri is a 69-year-old white female status post incision and drainage of a large abscess in the right breast and [id number]. She was seen in August 2019. At that time the abscess cavity is almost completely healed. At this time she is not having any drainage. She had a bilateral mammogram in 12/26/19. This was felt to be benign BIRADS 2 and routine screening in 1 year was recommended. She is not complaining of any lumps masses or nodules in her breast. She is not complaining of any erythema or drainage from the breast. She does note that in the lateral aspect of the circumareolar incision. As a area which appears to be a scab. She is not having any drainage from this region. The patient does not drink caffeinated beverages. She does not eat chocolate on a regular basis. She does not smoke she stopped 5 years ago. She is not exposed regularly to secondhand smoke. She is not taking any hormones. Family History: father: pancreatic sister: cervical Hormonal history: menarche: 10 breast fed: no, age at first : 18 menopause: 46 BCP: none hormones: none Surgical history: 1. Tonsillectomy 2. Appendectomy 3. Bilateral knee replacement 4. Cataract surgery 5. I&D right breast abscess Medical history: 1.HTN 2. back pain/ arthritis 3. sleep apnea Social: smoke:stopped 5 years ago alcohol: Occasional Marijuana: Negative - Constitutional Constitutional: Denies chills, Denies fever - EENT Comment: Cataract surgery Ears: deny: decreased hearing, tinnitus Ears, nose, mouth and throat: Reports sinus pressure, Denies headache, Denies sore throat - Breasts Breasts: bilateral: as per HPI - Cardiovascular Cardiovascular: Reports high blood pressure - Respiratory Comment: former smoker Respiratory: Reports cough - Gastrointestinal Gastrointestinal: Denies abdominal pain, Denies diarrhea, Denies nausea, Denies vomiting - Genitourinary (Female) Genitourinary: Denies dysuria, Denies hematuria - Menstruation Menstruation: Reports postmenopausal - Musculoskeletal Comment: back pain - Integumentary Integumentary: Denies pruritus, Denies rash - Neurological Neurological: Denies numbness, Denies weakness - Psychiatric Psychiatric: Reports anxiety, Reports depression - Endocrine Endocrine: Reports weight change - Hematologic/Lymphatic Comment: none - Allergic/Immunologic Allergic/Immunologic: Reports seasonal allergies Objective - Vital Signs Vital signs: Vital Signs Temp 99.4 F 04/09/20 15:57 Pulse 89 04/09/20 15:57 Resp 16 04/09/20 15:57 BP 159/89 04/09/20 15:57 Pulse Ox 96 04/09/20 15:57 Intake & Output 04/08/20 04/09/20 04/09/20 18:59 06:59 18:59 Weight 131.542 kg - Exam BMI 46.8 - Constitutional General appearance: Present: obese - EENT Eyes: Present: EOMI ENT: Present: hearing grossly normal - Neck Neck: Present: normal ROM - Respiratory Respiratory: bilateral: CTA - Cardiovascular Rhythm: regular Heart sounds: normal: S1, S2 - Gastrointestinal General gastrointestinal: Present: soft - Integumentary Integumentary: Present: normal turgor - Musculoskeletal Musculoskeletal: Present: gait normal - Psychiatric Psychiatric: Present: A&O x's 3, appropriate affect, intact judgment & insight - Additional findings Additional findings: Breast Exam: BRA: 52DDD inspection: bilateral grade 3 ptosis palpation: right breast: Multi-positional exam well-healed scar from prior I&D of abscess, no dominant masses or nodules of concern, fibrocystic changes; evaluation of the lateral aspect of the circumareolar incision reveals approximately 3 mm x 3 mm area of scabbing which was evaluated, when this was probed it was not a scab but appears to be dried sebum the area was able to be cleaned and the defect was approximately 4 mm in depth this approach to the area of the nipple. This did not go into the breast parenchyma. This was cleaned and the base of it was cauterized using a silver nitrate stick. Right axilla: No adenopathy of concern Left breast: Multi-positional exam fibrocystic changes, no dominant masses or nodules of concern Left axilla: No adenopathy of concern Assessment and Plan Assessment: Impression: 1. No evidence of recurrent abscess 2. Fibrocystic breast changes 3. Recent bilateral mammogram stable benign BIRADS 2 Plan: 1. Repeat bilateral mammogram in 1 year 2. Follow up sooner if any questions or concerns CC: Dr. Nazario encounter 25 minutes > 50% of time in planning and counselling
== END | disposition home or self-care (01) ==
LOC: WWCWWP 15:43
PROVIDERS: ATTEND Surgery
DX: Z53.9 Procedure and treatment not carried out, unspecified reason (principal)

== ENCOUNTER → 2020-06-02 | Outpatient (CLI) | payer MEDICARE ==
[2020-06-02 12:27] LABS: Basophils # (A) 0.1 k/uL (0-0.2); Basophils % (A) 1 %; Eosinophils # (A) 0.1 k/uL (0-0.7); Eosinophils % (A) 1 %; HCT 42.4 % (34.0-46.0); HGB 14.1 gm/dL (11.4-16.0); Lymphocytes # (A) 1.9 k/uL (1.0-4.8); Lymphocytes % (A) 30 %; MCH 31.6 pg (25.0-35.0); MCHC 33.2 g/dL (31.0-37.0); Mean Platelet Volume 7.2; Monocytes # (A) 0.4 k/uL (0-1.0); Monocytes % (A) 6 %; Neutrophils # (A) 3.9 k/uL (1.3-7.7); Neutrophils % (A) 61 %; Platelet Count 221 k/uL (150-450); RBC 4.47 m/uL (3.80-5.40); RDW 12.8 % (11.5-15.5); WBC 6.4 k/uL (3.8-10.6)
[2020-06-02 18:38] LABS: African American GFR (CKD) 65.6 (60.0-200.0); Albumin 4.4 g/dL (3.80-4.90); Albumin/Globulin Ratio 2.32 (1.60-3.17); Anion Gap 6.4 mmol/L (4.00-12.00); Calcium 9.8 mg/dL (8.7-10.3); Carbon Dioxide 26.6 mmol/L (21.6-31.8); Chol/HDL Ratio 4.51; Globulin 1.9 g/dL (1.6-3.3); LDL Cholesterol,Calculated 96.4 mg/dL (0.0-131.0); Non-African American GFR(CKD) 56.6 (60.0-200.0); Potassium 4.2 mmol/L (3.5-5.5); Total Bilirubin 0.5 mg/dL (0.2-1.2); Total Protein 6.3 g/dL (6.2-8.2); VLDL Calculation 33.6 mg/dL (5.00-40.00)
[2020-06-02 18:44] LABS: Hemoglobin A1C 5.9 % (4.0-6.0)
[2020-06-02 18:45] LABS: T4, Free (Free Thyroxine) 1.1 ng/dL (0.80-1.80)
== END | disposition home or self-care (01) ==
LOC: LABWHC1 11:27
PROVIDERS: ATTEND Internal Medicine Interventional Cardiology
DX: I10 Essential (primary) hypertension (principal); E78.2 Mixed hyperlipidemia
CPT/HCPCS: 36415; 80053; 80061; 82550; 83036; 84439; 84443; 85025

== ENCOUNTER → 2020-12-27 | Outpatient (CLI) | payer MEDICARE ==
[2020-12-27 15:06] LABS: Basophils # (A) 0.06 X 10*3/uL (0.00-0.10); Basophils % (A) 0.9 %; Eosinophils # (A) 0.06 X 10*3/uL (0.04-0.35); Eosinophils % (A) 0.9 %; HCT 41.6 % (37.2-46.3); HGB 13.2 g/dL (12.0-15.0); Lymphocytes # (A) 1.84 X 10*3/uL (0.90-5.00); Lymphocytes % (A) 27.2 %; MCH 30.6 pg (27.0-32.0); MCHC 31.7 g/dL (32.0-37.0); MCV 96.3 fL (80.0-97.0); Mean Platelet Volume 10.9 fL (9.5-12.2); Monocytes # (A) 0.56 X 10*3/uL (0.20-1.00); Monocytes % (A) 8.3 %; Neutrophils # (A) 4.23 X 10*3/uL (1.80-7.70); Neutrophils % (A) 62.4 %; Platelet Count 240 X 10*3/uL (140-440); RBC 4.32 X 10*6/uL (4.10-5.20); RDW 13.3 % (11.5-14.5); WBC 6.77 X 10*3/uL (4.50-10.00)
[2020-12-27 15:46] LABS: African American GFR (CKD) 58.1 (60.0-200.0); Albumin 4.3 g/dL (3.80-4.90); Albumin/Globulin Ratio 2.05 (1.60-3.17); Anion Gap 6.2 mmol/L (4.00-12.00); BUN/Creat Ratio 19.09 Ratio (12.00-20.00); Calcium 9.5 mg/dL (8.7-10.3); Carbon Dioxide 26.8 mmol/L (21.6-31.8); Chol/HDL Ratio 4.44; Globulin 2.1 g/dL (1.6-3.3); LDL Cholesterol,Calculated 91.6 mg/dL (0.0-131.0); Non-African American GFR(CKD) 50.1 (60.0-200.0); Total Bilirubin 0.4 mg/dL (0.3-1.2); Total Protein 6.4 g/dL (6.2-8.2); VLDL Calculation 25.4 mg/dL (5.00-40.00)
[2020-12-27 16:59] LABS: Hemoglobin A1C 5.9 % (4.0-6.0)
== END | disposition home or self-care (01) ==
LOC: LABWHC1 09:48
PROVIDERS: ATTEND Nurse Practitioner Adult Health
DX: Z00.01 Encounter for general adult medical examination with abnormal findings (principal); E78.5 Hyperlipidemia, unspecified
CPT/HCPCS: 36415; 80053; 80061; 82550; 83036; 84439; 84443; 85025

== ENCOUNTER → 2020-12-27 | Outpatient (CLI) | payer MEDICARE ==
--- NOTE | 2020-12-28 12:53 | MM ---
Reason for exam: screening (asymptomatic). Last mammogram was performed 1 year ago. History: Patient is postmenopausal. Benign US breast needle core RT of the right breast, May 14, 2018. Benign US breast needle core addl RT of the right breast, May 14, 2018. Benign US breast needle core addl RT of the right breast, May 14, 2018. Benign cyst aspiration of the right breast, 2005. Excisional biopsy of the left breast, 1989. Physical Findings: A clinical breast exam by your physician is recommended on an annual basis and results should be correlated with mammographic findings. MG 3D Screening Mammo W/Cad Bilateral CC and MLO view(s) were taken. Prior study comparison: December 26, 2019, bilateral MG 3d diag mammo w/cad COLIN. May 14, 2018, right breast MG diagnostic mammo RT wo CAD. The breast tissue is heterogeneously dense. This may lower the sensitivity of mammography. Stable calcifications left breast. There is no discrete abnormality. No significant changes when compared with prior studies. ASSESSMENT: Benign, BI-RAD 2 RECOMMENDATION: Routine screening mammogram of both breasts in 1 year.
== END | disposition home or self-care (01) ==
LOC: RADMAMWWP 09:51
PROVIDERS: ATTEND Surgery
DX: Z12.31 Encounter for screening mammogram for malignant neoplasm of breast (principal); Z78.0 Asymptomatic menopausal state
CPT/HCPCS: 77063; 77067

== ENCOUNTER → 2020-12-31 | Outpatient (CLI) | payer MEDICARE ==
[2020-12-31 12:38] VITALS: BP 116/80; PULSE 70; RESP 20; TEMP 98.2
--- NOTE | 2020-12-31 12:59 | P.PN ---
Subjective Progress Note Date: 12/31/20 Principal diagnosis: Fibrocystic breast changes/status post right breast abscess not recurrent prior right breast abscess Gauri is a 70-year-old white female status post incision and drainage of a large abscess in the right breast on [id number]. She had a bilateral mammogram in which was benign BIRADS 2. She has not had any recurrence of the abscess. She is not complaining of any lumps masses or nodules in the breast. She is not complaining of any nipple discharge. She is not complaining of any fever or chills. She is not complaining of any erythema or drainage from the breast. She has developed some folliculitis of the right breast, and some fungal infection under the breast. The patient does not drink caffeinated beverages. She does not eat chocolate on a regular basis. She does not smoke she stopped 7 years ago. She is not exposed regularly to secondhand smoke. She is not taking any hormones. Family History: father: pancreatic sister: cervical Hormonal history: menarche: 10 breast fed: no, age at first : 18 menopause: 46 BCP: none hormones: none Surgical history: 1. Tonsillectomy 2. Appendectomy 3. Bilateral knee replacement 4. Cataract surgery 5. I&D right breast abscess Medical history: 1.HTN 2. back pain/ arthritis 3. sleep apnea Social: smoke:stopped 5 years ago alcohol: Occasional Marijuana: Negative - Constitutional Constitutional: Denies chills, Denies fever - EENT Comment: Cataract surgery Ears: deny: decreased hearing, tinnitus Ears, nose, mouth and throat: Reports sinus pressure, Denies headache, Denies sore throat - Breasts Breasts: bilateral: as per HPI - Cardiovascular Cardiovascular: Reports high blood pressure - Respiratory Comment: former smoker Respiratory: Reports cough - Gastrointestinal Gastrointestinal: Denies abdominal pain, Denies diarrhea, Denies nausea, Denies vomiting - Genitourinary (Female) Genitourinary: Denies dysuria, Denies hematuria - Menstruation Menstruation: Reports postmenopausal - Musculoskeletal Comment: back pain - Integumentary Integumentary: Denies pruritus, Denies rash - Neurological Neurological: Denies numbness, Denies weakness - Psychiatric Psychiatric: Reports anxiety, Reports depression - Endocrine Endocrine: Reports weight change - Hematologic/Lymphatic Comment: none - Allergic/Immunologic Allergic/Immunologic: Reports seasonal allergies Objective - Vital Signs Vital signs: Vital Signs Temp 98.2 F 12/31/20 12:30 Pulse 70 12/31/20 12:30 Resp 20 12/31/20 12:30 BP 116/80 12/31/20 12:30 Pulse Ox Intake & Output 12/30/20 12/31/20 12/31/20 18:59 06:59 18:59 Weight 133.81 kg - Exam BMI 47.6 - Constitutional General appearance: Present: cooperative - EENT Eyes: Present: EOMI ENT: Present: hard of hearing - Neck Neck: Present: normal ROM - Respiratory Respiratory: bilateral: CTA - Cardiovascular Rhythm: regular Heart sounds: normal: S1, S2 - Integumentary Integumentary Comment(s): Healed folliculitis right breast, fungal infection under both breast Integumentary: Present: normal turgor - Musculoskeletal Musculoskeletal: Present: gait normal - Psychiatric Psychiatric: Present: A&O x's 3, appropriate affect, intact judgment & insight - Additional findings Additional findings: Breast examination: Block: 52 DDD Inspection: Bilateral grade 3 ptosis Palpation: Right breast: Multi-positional exam fibrocystic changes, skin changes related to folliculitis which has resolved Well-healed scar from prior surgery for breast abscess drainage Right axilla: No adenopathy of concern Left breast: Both positional exam fibrocystic changes, no dominant masses or nodules of concern Left axilla: No adenopathy of concern Assessment and Plan Assessment: Impression: 1.HTN 2. back pain/ arthritis 3. sleep apnea 4. Resolved folliculitis right breast 5. Bilateral fibrocystic breast changes 6. Bilateral fungal infection under breast Plan: 1. Neosporin as needed for folliculitis 2. Repeat bilateral mammogram in 1 year 3. Physician exam in 1 year 4. Nystatin under breast for fungal infection Cc: Dr. Nazario
== END ==
LOC: WWCWWP 12:07
PROVIDERS: ATTEND Surgery
DX: N60.11 Diffuse cystic mastopathy of right breast (principal); N60.12 Diffuse cystic mastopathy of left breast; I10 Essential (primary) hypertension; G47.30 Sleep apnea, unspecified; B48.8 Other specified mycoses; M47.819 Spondylosis without myelopathy or radiculopathy, site unspecified; Z87.891 Personal history of nicotine dependence; Z88.6 Allergy status to analgesic agent; Z88.1 Allergy status to other antibiotic agents

== ENCOUNTER 2021-12-13 12:59 | Emergency (ER) | payer MEDICARE ==
[2021-12-13 13:26] VITALS: BP 151/88; PULSE 74; RESP 16; TEMP 98
[2021-12-13] MEDS ORDERED: MORPHINE SULFATE 4 MG/ML SYRINGE IM STA (13:41)
--- NOTE | 2021-12-13 13:44 | ED ---
General Adult HPI - General Chief complaint: Back Pain/Injury Stated complaint: hip pain Time Seen by Provider: 12/13/21 13:28 Source: patient Mode of arrival: ambulatory Limitations: no limitations - History of Present Illness Initial comments: Dictation was produced using [employer] dictation software. please excuse any grammatical, word or spelling errors. 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 Patient for the last 2 weeks has been having worsening left-sided hip pain. She is followed up with her primary care doctors. She had x-rays that showed [id number] arthritis of the left hip. Patient was told to take extra strength Tylenol for her pain she was also given prescription for prednisone. Patient states over the last 48 hours her pain has been persistent and not getting any better. She does have a outpatient appointment with orthopedic surgery however does not for another 10 days. Patient states that her pain is whenever she stands and tries to move that hip. At rest she states that there is a very mild dull ache. Pain is so severe that she is having significant difficulty ambulating. Patient denies any radiation of symptoms. She denies any trauma to that hip. The ROS documented in this emergency department record has been reviewed and confirmed by me. Those systems with pertinent positive or negative responses have been documented in the HPI. All other systems are other negative and/or noncontributory. PHYSICAL EXAM: General Impression: Alert and oriented x3, not in acute distress HEENT: Normocephalic atraumatic, extra-ocular movements intact, pupils equal and reactive to light bilaterally, mucous membranes moist. Cardiovascular: Heart regular rate and rhythm Chest: Able to complete full sentences, no retractions, no tachypnea Musculoskeletal: Pulses present and equal in all extremities, no peripheral edema Left foot: Tenderness to palpation over the anterior and lateral hip area. Pain is reproduced with active range of motion and external rotation Motor: no focal deficits noted Neurological: CN II-XII grossly intact, no focal motor or sensory deficits noted Skin: Intact with no visualized rashes Psych: Normal affect and mood ED course: 71-year-old male says emergency department for left-sided hip pain. Patient was only prescribed prednisone and Tylenol by primary care physician. Patient is here for chief complaint of pain relief. Patient given IM shot of morphine with significant improvement of her symptoms. Patient is a admission liaison discharge follow-up with her outpatient specialist. - Related Data Home Medications Medication Instructions Recorded Confirmed Enalapril [Vasotec] 20 mg PO BID 05/06/18 12/31/20 Naproxen Sodium [Aleve] 220 mg PO QAM PRN 05/06/18 12/31/20 PARoxetine [Paxil] 20 mg PO HS 05/06/18 12/31/20 Simvastatin [Zocor] 40 mg PO HS 05/06/18 12/31/20 Cholecalciferol [Vitamin D3 (25 5,000 unit PO HS 03/27/19 12/31/20 Mcg = 1000 Iu)] hydroCHLOROthiazide [Hydrodiuril] 12.5 mg PO QAM 08/29/19 12/31/20 Previous Rx's Medication Instructions Recorded oxyCODONE HCL 5 mg PO Q6H 3 Days #12 cap 12/13/21 Allergies Allergy/AdvReac Type Severity Reaction Status Date / Time acetaminophen [From NyQuil] Allergy Dyspnea Verified 12/13/21 13:26 dextromethorphan Allergy Dyspnea Verified 12/13/21 13:26 [From NyQuil] doxylamine [From NyQuil] Allergy Dyspnea Verified 12/13/21 13:26 pseudoephedrine [From NyQuil] Allergy Dyspnea Verified 12/13/21 13:26 tetracycline AdvReac Nausea Verified 12/13/21 13:26 Review of Systems ROS Statement: Those systems with pertinent positive or pertinent negative responses have been documented in the HPI. ROS Other: All systems not noted in ROS Statement are negative. Past Medical History Past Medical History: Hyperlipidemia, Hypertension, Pneumonia Additional Past Medical History / Comment(s): Arthritis History of Any Multi-Drug Resistant Organisms: None Reported Past Surgical History: Appendectomy, Breast Surgery, Heart Catheterization, Joint Replacement, Orthopedic Surgery, Tonsillectomy Additional Past Surgical History / Comment(s): Hx. right cyst aspiration, left breast excisional bx. Bilateral knee replacement Past Anesthesia/Blood Transfusion Reactions: Postoperative Nausea & Vomiting (PONV) Past Psychological History: No Psychological Hx Reported Smoking Status: Former smoker Past Alcohol Use History: Occasional Past Drug Use History: None Reported General Exam Limitations: no limitations Course Vital Signs 12/13/21 13:22 Temperature 98.0 F Pulse Rate 74 Respiratory 16 Rate Blood Pressure 151/88 O2 Sat by Pulse 97 Oximetry Disposition Clinical Impression: Hip arthritis Disposition: HOME SELF-CARE Condition: Fair Instructions (If sedation given, give patient instructions): Hip Pain (ED) Prescriptions: oxyCODONE HCL 5 mg PO Q6H 3 Days #12 cap Is patient prescribed a controlled substance at d/c from ED?: Yes If prescribed controlled substance>3 days was MAPS reviewed?: Prescribed <3 Days Referrals: Major Nazario MD [Primary Care Provider] - 1-2 days Umang Monk MD [STAFF PHYSICIAN] - 1-2 days Time of Disposition: 14:59
== END 2021-12-13 15:08 | disposition home or self-care (01) ==
LOC: EC 12:59
DX: M16.12 Unilateral primary osteoarthritis, left hip (principal); E78.5 Hyperlipidemia, unspecified; I10 Essential (primary) hypertension; Z87.891 Personal history of nicotine dependence; Z88.6 Allergy status to analgesic agent; Z88.8 Allergy status to other drugs, medicaments and biological substances; Z88.1 Allergy status to other antibiotic agents
CPT/HCPCS: 99283; 96372; J2270

== ENCOUNTER → 2021-12-29 | Outpatient (CLI) | payer MEDICARE ==
--- NOTE | 2022-01-02 17:42 | MM ---
Reason for Exam: Screening (asymptomatic). Last screening mammogram was performed 12 month(s) ago. Patient History: Menarche at age 10. First Full-Term at age 18. Postmenopausal. 2005, Benign Cyst Aspiration on the right side. 1989, Excisional Biopsy on the Left side. 05/14/2018, Benign Core Biopsy on the right side. 05/14/2018, Benign Core Biopsy on the right side. 05/14/2018, Benign Core Biopsy on the right side. Risk Values: Peggy 5 year model risk: 2.4%. NCI Lifetime model risk: 5.8%. Prior Study Comparison: 05/14/2018 Right Diagnostic Mammogram, [facility]. 12/26/2019 Bilateral Diagnostic Mammogram, [facility]. 12/27/2020 Bilateral Screening Mammogram, [facility]. Tissue Density: The breast tissue is heterogeneously dense. This may lower the sensitivity of mammography. Findings: Analyzed By CAD. Patient with large bilateral breast tissue. Areas of microcalcifications on the left remain unchanged. Microclip medial right breast from prior biopsy. Area of asymmetric density subareolar right MLO view on the nipple in profile view does not persist on 3-D images. No significant change from prior exams. Overall Assessment: Benign, BI-RAD 2 Management: Screening Mammogram of both breasts in 1 year. 1. Patient should continue monthly self breast exams. 2. A clinical breast exam by your physician is recommended on an annual basis. 3. This exam should not preclude additional follow-up of suspicious palpable abnormalities. Electronically signed and approved by: Edgar Retana M.D. Radiologist
== END | disposition home or self-care (01) ==
LOC: RADMAMWWP 10:08
PROVIDERS: ATTEND Surgery
DX: Z12.31 Encounter for screening mammogram for malignant neoplasm of breast (principal); Z78.0 Asymptomatic menopausal state
CPT/HCPCS: 77063; 77067

== ENCOUNTER → 2022-01-27 | Outpatient (CLI) | payer MEDICARE ==
[2022-01-27 14:05] VITALS: BP 178/99; PULSE 88; RESP 18; TEMP 98.2
--- NOTE | 2022-01-27 14:36 | P.PN ---
Subjective Progress Note Date: 01/27/22 Principal diagnosis: fibrocystic breast changes Fibrocystic breast changes/status post right breast abscess not recurrent Gauri is a 71-year-old white female status post incision and drainage of a large abscess in the right breast on [id number]. She had a bilateral mammogram in 12-29-21 which was benign BIRADS 2. She has not had any recurrence of the abscess. She is not complaining of any lumps masses or nodules in the breast. She is not complaining of any nipple discharge. She is not complaining of any fever or chills. She is not complaining of any erythema or drainage from the breast. Mammogram reviewed in detail with Dr. Bob caffiene: 2 cups/day nicotine: stopped 8 years ago chocolate: rare hormones: none; BCP: never used Family History: father: pancreatic sister: cervical Hormonal history: menarche: 10 breast fed: no, age at first : 18 menopause: 46 BCP: none hormones: none Surgical history: 1. Tonsillectomy 2. Appendectomy 3. Bilateral knee replacement 4. Cataract surgery 5. I&D right breast abscess Medical history: 1.HTN 2. back pain/ arthritis 3. sleep apnea 4. sciatic pain Social: smoke:stopped 5 years ago alcohol: Occasional Marijuana: Negative - Constitutional Constitutional: Denies chills, Denies fever - EENT Comment: Cataract surgery Ears: deny: decreased hearing, tinnitus Ears, nose, mouth and throat: Reports sinus pressure, Denies headache, Denies sore throat - Breasts Breasts: bilateral: as per HPI - Cardiovascular Cardiovascular: Reports high blood pressure - Respiratory Comment: former smoker Respiratory: Reports cough - Gastrointestinal Gastrointestinal: Denies abdominal pain, Denies diarrhea, Denies nausea, Denies vomiting - Genitourinary (Female) Genitourinary: Denies dysuria, Denies hematuria - Menstruation Menstruation: Reports postmenopausal - Musculoskeletal Comment: back pain - Integumentary Integumentary: Denies pruritus, Denies rash - Neurological Neurological: Denies numbness, Denies weakness - Psychiatric Psychiatric: Reports anxiety, Reports depression - Endocrine Endocrine: Reports weight change - Hematologic/Lymphatic Comment: none - Allergic/Immunologic Allergic/Immunologic: Reports seasonal allergies Objective - Vital Signs Vital signs: Vital Signs Temp 98.2 F 01/27/22 14:02 Pulse 88 01/27/22 14:02 Resp 18 01/27/22 14:02 BP 178/99 01/27/22 14:02 Pulse Ox 97 01/27/22 14:02 FiO2 Intake & Output 01/26/22 01/27/22 01/27/22 18:59 06:59 18:59 Weight 131.542 kg - Exam BMI: 46.8 - Constitutional General appearance: Present: cooperative - EENT Eyes: Present: EOMI ENT: Present: hearing grossly normal - Neck Neck: Present: normal ROM - Respiratory Details: Breast exam: BRA: 52DDD Inspection: Bilateral grade 3 ptosis Palpation: Right breast: Multi-positional exam fibrocystic changes no discrete dominant masses or nodules of concern; there is some distortion of the right breast where she underwent a drainage of an abscess in the remote past Right axilla: No adenopathy of concern Left breast: No dominant masses or nodules of concern Left axilla: No adenopathy of concern Assessment and Plan Assessment: Impression: Fibrocystic breast changes BMI 46.8 Macromastia Back pain Hypertension Shortness of breath with activity Plan: I lateral mammogram in 1 year with physician exam at that time We have talked about breast reduction at this time she is not interested CC: Dr. Nazario
== END ==
LOC: WWCWWP 13:45
PROVIDERS: ATTEND Surgery
DX: Z12.31 Encounter for screening mammogram for malignant neoplasm of breast (principal); N60.11 Diffuse cystic mastopathy of right breast; N62 Hypertrophy of breast; I10 Essential (primary) hypertension; Z68.42 Body mass index [BMI] 45.0-49.9, adult; R06.02 Shortness of breath; Z88.6 Allergy status to analgesic agent; Z88.1 Allergy status to other antibiotic agents; Z88.8 Allergy status to other drugs, medicaments and biological substances; Z87.891 Personal history of nicotine dependence

== ENCOUNTER → 2023-01-01 | Outpatient (CLI) | payer MEDICARE ==
--- NOTE | 2023-01-03 08:10 | MM ---
Reason for Exam: Screening (asymptomatic). Last mammogram was performed 1 year(s) and 1 month(s) ago. Patient History: Menarche at age 10. First Full-Term at age 18. Postmenopausal. 2005, Benign Cyst Aspiration on the right side. 1989, Excisional Biopsy on the Left side. 05/14/2018, Benign Core Biopsy on the right side. 05/14/2018, Benign Core Biopsy on the right side. 05/14/2018, Benign Core Biopsy on the right side. Risk Values: Peggy 5 year model risk: 2.4%. NCI Lifetime model risk: 5.5%. Prior Study Comparison: 12/26/2019 Bilateral Diagnostic Mammogram, [facility]. 12/27/2020 Bilateral Screening Mammogram, [facility]. 12/29/2021 Bilateral MG 3D screening mammo w/cad, [facility]. Tissue Density: The breast tissue is heterogeneously dense. This may lower the sensitivity of mammography. Findings: Analyzed By CAD. There is no suspicious group of microcalcifications or new suspicious mass in either breast. Overall Assessment: Negative, BI-RAD 1 Management: Screening Mammogram of both breasts in 1 year. . Patient should continue monthly self-breast exams. A clinical breast exam by your physician is recommended on an annual basis. This exam should not preclude additional follow-up of suspicious palpable abnormalities. Note on Peggy scores and lifetime risk: 1. A Peggy score greater than 3% is considered moderate risk. If this is the case, consider specialist referral to assess eligibility for a risk reducing agent. 2. If overall lifetime risk for the development of breast cancer is 20% or higher, the patient may qualify for future screening with alternating mammogram and breast MRI. Electronically signed and approved by: Rudy Evans M.D. Radiologis
== END | disposition home or self-care (01) ==
LOC: RADMAMWWP 09:33
PROVIDERS: ATTEND Surgery
DX: Z12.31 Encounter for screening mammogram for malignant neoplasm of breast (principal); Z78.0 Asymptomatic menopausal state
CPT/HCPCS: 77063; 77067

== ENCOUNTER → 2023-01-12 | Outpatient (CLI) | payer MEDICARE ==
[2023-01-12 14:44] VITALS: BP 150/89; PULSE 76; RESP 13; TEMP 97.7
--- NOTE | 2023-01-12 15:18 | P.PN ---
Subjective Progress Note Date: 01/12/23 Fibrocystic breast changes/status post right breast abscess 2019 not recurrent Gauri is a 72-year-old white female status post incision and drainage of a large abscess in the right breast on [id number]. She had a bilateral mammogram on 01-01-23 which was benign BIRADS 1. She has not had any recurrence of the abscess. She is not complaining of any lumps masses or nodules in the breast. She is not complaining of any nipple discharge. She is not complaining of any fever or chills. She is not complaining of any erythema or drainage from the breast. caffiene: 2 cups/day nicotine: stopped 8 years ago chocolate: rare hormones: none; BCP: never used Family History: father: pancreatic sister: cervical Hormonal history: menarche: 10 breast fed: no, age at first : 18 menopause: 46 BCP: none hormones: none Surgical history: 1. Tonsillectomy 2. Appendectomy 3. Bilateral knee replacement 4. Cataract surgery 5. I&D right breast abscess Medical history: 1.HTN 2. back pain/ arthritis 3. sleep apnea 4. sciatic pain Social: smoke:stopped 5 years ago alcohol: Occasional Marijuana: Negative - Constitutional Constitutional: Denies chills, Denies fever - EENT Comment: Cataract surgery Ears: deny: decreased hearing, tinnitus Ears, nose, mouth and throat: Reports sinus pressure, Denies headache, Denies sore throat - Breasts Breasts: bilateral: as per HPI - Cardiovascular Cardiovascular: Reports high blood pressure - Respiratory Comment: former smoker Respiratory: Reports cough - Gastrointestinal Gastrointestinal: Denies abdominal pain, Denies diarrhea, Denies nausea, Denies vomiting - Genitourinary (Female) Genitourinary: Denies dysuria, Denies hematuria - Menstruation Menstruation: Reports postmenopausal - Musculoskeletal Comment: back pain - Integumentary Integumentary: Denies pruritus, Denies rash - Neurological Neurological: Denies numbness, Denies weakness - Psychiatric Psychiatric: Reports anxiety, Reports depression - Endocrine Endocrine: Reports weight change - Hematologic/Lymphatic Comment: none - Allergic/Immunologic Allergic/Immunologic: Reports seasonal allergies Objective - Vital Signs Vital signs: Vital Signs Temp 97.7 F 01/12/23 14:39 Pulse 76 01/12/23 14:39 Resp 13 01/12/23 14:39 BP 150/89 01/12/23 14:39 Pulse Ox 100 01/12/23 14:39 FiO2 Intake & Output 01/11/23 01/12/23 01/12/23 18:59 06:59 18:59 Weight 136.078 kg - Constitutional General appearance: Present: cooperative - EENT Eyes: Present: EOMI ENT: Present: hearing grossly normal - Neck Neck: Present: normal ROM - Respiratory Respiratory: bilateral: CTA - Cardiovascular Rhythm: regular Heart sounds: normal: S1, S2 - Gastrointestinal General gastrointestinal: Present: soft - Integumentary Integumentary: Present: normal turgor - Musculoskeletal Musculoskeletal: Present: gait normal - Psychiatric Psychiatric: Present: A&O x's 3, appropriate affect, intact judgment & insight - Additional findings Additional findings: Breast exam: BRA: 52DDD Inspection: Bilateral grade 3 ptosis Palpation: Right breast: Multi-positional exam fibrocystic changes no discrete dominant masses or nodules of concern; there is some distortion of the right breast where she underwent a drainage of an abscess in the remote past Right axilla: No adenopathy of concern Left breast: No dominant masses or nodules of concern Left axilla: No adenopathy of concern Assessment and Plan Assessment: Impression: Fibrocystic breast changes BMI 47.7 Macromastia Back pain Hypertension Shortness of breath with activity bilateral mammogram 01-01-23 BIRAD 1 Plan: Bilateral mammogram in 1 year with physician exam at that time CC: Dr. Nazario
== END ==
LOC: WWCWWP 14:32
PROVIDERS: ATTEND Surgery
DX: Z12.31 Encounter for screening mammogram for malignant neoplasm of breast (principal); N60.19 Diffuse cystic mastopathy of unspecified breast; I10 Essential (primary) hypertension; G47.30 Sleep apnea, unspecified; N62 Hypertrophy of breast; Z98.890 Other specified postprocedural states; Z87.891 Personal history of nicotine dependence; Z88.6 Allergy status to analgesic agent; Z88.8 Allergy status to other drugs, medicaments and biological substances

== ENCOUNTER 2023-10-21 19:09 | Inpatient (IN) | payer MEDICARE ==
[2023-10-21] MEDS: IPRATROPIUM-ALBUTEROL 3 ML NEB INHALATION STA ×2 (19:36→22:50)
--- NOTE | 2023-10-21 19:58 | ED ---
SOB HPI - General Source: patient Mode of arrival: ambulatory Limitations: no limitations - History of Present Illness MD Complaint: shortness of breath <Jerson Yo - Last Filed: 10/21/23 20:46> <Fede Brown - Last Filed: 10/21/23 23:35> - General Chief Complaint: Shortness of Breath Stated Complaint: Shortness of Breath Time Seen by Provider: 10/21/23 19:21 - History of Present Illness Initial Comments: 72-year-old female with a history of COPD who presents to the emergency department with complaints of shortness of breath which started yesterday. He is refractory to her home medication. She states that her recently had upper respiratory infection for which he is improving but she believes he may have gotten it now. She is short of breath exertional dyspnea difficulty completing sentences. She does have some peripheral edema but she states it looks normal to her. No overt chest pain on my questioning. Also no overt fevers chills or sweats reported. (Jerson Yo) - Related Data Home Medications Medication Instructions Recorded Confirmed Naproxen Sodium [Aleve] 220 mg PO DAILY 05/06/18 10/21/23 PARoxetine [Paxil] 20 mg PO HS 05/06/18 10/21/23 Simvastatin [Zocor] 40 mg PO Q2D@2100 05/06/18 10/21/23 Cholecalciferol [Vitamin D3 (25 50 mcg PO HS 03/27/19 10/21/23 Mcg = 1000 Iu)] Albuterol Inhaler [Ventolin Hfa 2 puff INHALATION RT-QID PRN 10/21/23 10/21/23 Inhaler] Melatonin 3 mg PO HS PRN 10/21/23 10/21/23 Allergies Allergy/AdvReac Type Severity Reaction Status Date / Time acetaminophen [From NyQuil] Allergy Dyspnea Verified 10/21/23 20:30 dextromethorphan Allergy Dyspnea Verified 10/21/23 20:30 [From NyQuil] doxylamine [From NyQuil] Allergy Dyspnea Verified 10/21/23 20:30 pseudoephedrine [From NyQuil] Allergy Dyspnea Verified 10/21/23 20:30 tetracycline AdvReac Nausea Verified 10/21/23 20:30 Review of Systems ROS Other: All systems not noted in ROS Statement are negative. <Jerson Yo - Last Filed: 10/21/23 20:46> ROS Other: All systems not noted in ROS Statement are negative. <Fede Brown - Last Filed: 10/21/23 23:35> ROS Statement: Those systems with pertinent positive or pertinent negative responses have been documented in the HPI. Past Medical History Past Medical History: Hyperlipidemia, Hypertension, Pneumonia Additional Past Medical History / Comment(s): Arthritis History of Any Multi-Drug Resistant Organisms: None Reported Past Surgical History: Appendectomy, Breast Surgery, Heart Catheterization, Joint Replacement, Orthopedic Surgery, Tonsillectomy Additional Past Surgical History / Comment(s): Hx. right cyst aspiration, left breast excisional bx. Bilateral knee replacement Past Anesthesia/Blood Transfusion Reactions: Postoperative Nausea & Vomiting (PONV) Past Psychological History: No Psychological Hx Reported Smoking Status: Former smoker Past Alcohol Use History: Occasional Past Drug Use History: None Reported <SrinathJerson - Last Filed: 10/21/23 20:46> General Exam Limitations: no limitations General appearance: anxious, in distress Head exam: Present: atraumatic, normocephalic, normal inspection Eye exam: Present: normal appearance, PERRL, EOMI. Absent: scleral icterus, conjunctival injection, periorbital swelling ENT exam: Present: normal exam, mucous membranes moist Neck exam: Present: normal inspection, full ROM, other (No stridor JVD or bruits). Absent: tenderness, meningismus, lymphadenopathy Respiratory exam: Present: wheezes, accessory muscle use, decreased breath sounds. Absent: respiratory distress, rales, rhonchi, stridor Cardiovascular Exam: Present: regular rate, normal rhythm, normal heart sounds. Absent: systolic murmur, diastolic murmur, rubs, gallop, clicks GI/Abdominal exam: Present: soft, normal bowel sounds. Absent: distended, tenderness, guarding, rebound, rigid Extremities exam: Present: full ROM, normal capillary refill, pedal edema, other (Trace edema with stasis dermatitis bilaterally). Absent: tenderness, joint swelling, calf tenderness Back exam: Present: normal inspection Neurological exam: Present: alert, oriented X3, CN II-XII intact Psychiatric exam: Present: normal affect, normal mood Skin exam: Present: warm, dry, intact, normal color. Absent: rash <SrinathJerson - Last Filed: 10/21/23 20:46> - General Exam Comments Initial Comments: This is a well-developed well-nourished awake alert oriented x 4 female (Jerson Yo) Course <Jerson Yo - Last Filed: 10/21/23 20:46> Vital Signs 10/21/23 10/21/23 10/21/23 19:14 19:38 19:47 Temperature 99.6 F Pulse Rate 80 75 72 Respiratory 26 H Rate Blood Pressure 194/80 O2 Sat by Pulse 92 L Oximetry 10/21/23 10/21/23 22:54 23:05 Temperature Pulse Rate 90 78 Respiratory Rate Blood Pressure O2 Sat by Pulse Oximetry - Reevaluation(s) Reevaluation #1: 10/21/23 20:45 Reevaluation the patient after her updraft treatment she is feeling much improved increased aeration still has diffuse wheezing however. Workup is in progress. Patient will be endorsed to Dr. Brown at her shift change at 9 PM. Family is aware of this. (SrinathJerson) Medical Decision Making <SrinathJerson - Last Filed: 10/21/23 20:46> - Lab Data Result diagrams: 10/21/23 20:34 10/21/23 20:34 <Fede Brown - Last Filed: 10/21/23 23:35> - Medical Decision Making Patient's care is endorsed to Dr. Brown at her shift change 9 PM. Patient and family aware of this. Was pt. sent in by a medical professional or institution (, PA, CENTRAL SUPPLY CLERK, urgent care, hospital, or [place] [facility] facility...) When possible be specific @ -[No] Did you speak to anyone other than the patient for history (EMS, parent, family, police, friend...)? What history was obtained from this source @ -[Paramedics] Did you review nursing and triage notes (agree or disagree)? Why? @ -[I reviewed and agree with nursing and triage notes] Were old charts reviewed (outside hosp., previous admission, EMS record, old EKG, old radiological studies, urgent care reports/EKG's, [place] health care facility records)? Report findings @ -[No old charts were reviewed] Differential Diagnosis (chest pain, altered mental status, abdominal pain women, abdominal pain men, vaginal bleeding, weakness, fever, dyspnea, syncope, heada wero, dizziness, GI bleed, back pain, seizure, CVA, palpatations, mental health, musculoskeletal)? @ -[Acute dyspnea] EKG interpreted by me (3pts min.). @ -[As above EKG interpreted by me shows sinus rhythm of 82 parable 120 QRS duration 100 QT/QTc 369/407 left axis deviation low voltage pulmonary disease pattern incomplete right bundle branch block artifact present] X-rays interpreted by me (1pt min.). @ -[None done] CT interpreted by me (1pt min.). @ -[None done] U/S interpreted by me (1pt. min.). @ -[None done] What testing was considered but not performed or refused? (CT, X-rays, U/S, labs)? Why? @ -[None] What meds were considered but not given or refused? Why? @ -[None] Did you discuss the management of the patient with other professionals (professionals i.e. , PA, CENTRAL SUPPLY CLERK, lab, RT, psych nurse, social security specialist, powertrain control systems engineer, teacher, unclaimed property officer, social work case manager)? Give summary @ -[No] Was smoking cessation discussed for >3mins.? @ -[No] Was critical care preformed (if so, how long)? @ -[No] Were there social determinants of health that impacted care today? How? (Homelessness, low income, unemployed, alcoholism, drug addiction, transportation, low edu. Level, literacy, decrease access to med. care, long-term, rehab)? @ -[No] Was there de-escalation of care discussed even if they declined (Discuss DNR or withdrawal of care, Hospice)? DNR status @ -[No] What co-morbidities impacted this encounter? (DM, HTN, Smoking, COPD, CAD, Cancer, CVA, ARF, Chemo, Hep., AIDS, mental health diagnosis, sleep apnea, morbid obesity)? @ -[None] Was patient admitted / discharged? Hospital course, mention meds given and route, prescriptions, significant lab abnormalities, going to OR and other pertinent info. @ -[hospital course] Undiagnosed new problem with uncertain prognosis? @ -[No] Drug Therapy requiring intensive monitoring for toxicity (Heparin, Nitro, Insulin, Cardizem)? @ -[No] Were any procedures done? @ -[No] Diagnosis/symptom? @ -[default] Acute, or Chronic, or Acute on Chronic? @ -[default] Uncomplicated (without systemic symptoms) or Complicated (systemic symptoms)? @ -[default] Side effects of treatment? @ -[No] Exacerbation, Progression, or Severe Exacerbation? @ -[No] Poses a threat to life or bodily function? How? (Chest pain, [place], [place], pneumonia, PE, COPD, DKA, ARF, appy, cholecystitis, CVA, Diverticulitis, Homicidal, Suicidal, threat to staff... and all critical care pts) @ -[No] (SrinathJerson) Patient signed out to me pending results of workup. She has a history of COPD. Presents with worsening shortness of breath for 1 day. Her recently had an upper respiratory infection. She denies any chest pain that is sharon but does endorse chest tightness. Increased work of breathing. Denies any nausea or vomiting. Endorses increased production of mucus and sputum. Presents for further evaluation at this time. Cardiopulmonary workup was obtained. Patient presented with increased work of breathing, mild hypertension, as well as borderline hypoxia on room air. When I evaluated the patient after breathing treatment and initial IV steroids, patient is 88 to 90% on room air. Improved on 2 L nasal cannula from 91 to 94%. Chest x-ray reveals no signs of acute cardiopulmonary process other than a trace left pleural effusion. Laboratory studies remarkable for negative troponin, BNP within acceptable limits. D-dimer is slightly elevated at 1.16. No evidence of acute infection. Viral swabs negative. I discussed results with the patient and we will obtain a CT angiogram at this time his previous provider was concerned for possible PE which is why he went to the [facility]. CT angiogram revealed no evidence of pulmonary embolism. On reevaluation following multiple breathing treatments patient is still significantly wheezy. Still increased work of breathing. Intermittently requiring 2 L nasal cannula. I recommended admission at this time for COPD and we will start her on empiric antibiotics for tracheobronchitis considering her COPD history. She was in agreement this plan. I spoke with the admitting team, Dr. Altamirano who accepted the patient. Will continue with IV steroids, breathing treatments, and patient was started on azithromycin. Pulmonology consulted. Was critical care preformed (if so, how long)? @ -Yes, 35 minutes. Involved repeat evaluations of patient's lung sounds as well as respirations and work of breathing considering her boarderline hypoxia. Did you discuss the management of the patient with other professionals (professionals i.e. DrBaljit, PA, CENTRAL SUPPLY CLERK, lab, RT, psych nurse, social security specialist, powertrain control systems engineer, teacher, unclaimed property officer, social work case manager)? Give summary @ -Discussed with the accepting physician, Dr. Altamirano who was in agreement the plan. Diagnosis/symptom? @ -COPD exacerbation, tracheobronchitis, hypoxia Acute, or Chronic, or Acute on Chronic? @ -Acute Uncomplicated (without systemic symptoms) or Complicated (systemic symptoms)? @ -Complicated Side effects of treatment? @ -None Exacerbation, Progression, or Severe Exacerbation] @ -No Poses a threat to life or bodily function? @ -Yes (Fede Brown) - Lab Data Lab Results 10/21/23 10/21/23 10/21/23 Range/Units 19:30 20:34 20:34 WBC 8.8 (3.8-10.6) k/uL RBC 4.57 (3.80-5.40) m/uL Hgb 14.5 (11.4-16.0) gm/dL Hct 43.0 (34.0-46.0) % MCV 94.0 (80.0-100.0) fL MCH 31.7 (25.0-35.0) pg MCHC 33.7 (31.0-37.0) g/dL RDW 13.9 (11.5-15.5) % Plt Count 161 (150-450) k/uL MPV 8.4 Neutrophils % 78 % Lymphocytes % 11 % Monocytes % 7 % Eosinophils % 1 % Basophils % 1 % Neutrophils # 6.9 (1.3-7.7) k/uL Lymphocytes # 0.9 L (1.0-4.8) k/uL Monocytes # 0.6 (0-1.0) k/uL Eosinophils # 0.1 (0-0.7) k/uL Basophils # 0.1 (0-0.2) k/uL PT 10.4 (10.0-12.5) sec INR 0.9 (<1.2) APTT 30.0 (22.0-30.0) sec D-Dimer 1.16 H (<0.60) mg/L FEU Sodium (137-145) mmol/L Potassium (3.5-5.1) mmol/L Chloride (98-107) mmol/L Carbon Dioxide (22-30) mmol/L Anion Gap mmol/L BUN (7-17) mg/dL Creatinine (0.52-1.04) mg/dL Est GFR (CKD-EPI)AfAm (>60 ml/min/1.73 sqM) Est GFR (CKD-EPI)NonAf (>60 ml/min/1.73 sqM) Glucose (74-99) mg/dL Plasma Lactic Acid Lex (0.7-2.0) mmol/L Calcium (8.4-10.2) mg/dL Magnesium (1.6-2.3) mg/dL Total Bilirubin (0.2-1.3) mg/dL AST (14-36) U/L ALT (4-34) U/L Alkaline Phosphatase (38-126) U/L Troponin I (0.000-0.034) ng/mL NT-Pro-B Natriuret Pep pg/mL Total Protein (6.3-8.2) g/dL Albumin (3.5-5.0) g/dL Influenza Type A (PCR) Not Detected (Not Detectd) Influenza Type B (PCR) Not Detected (Not Detectd) RSV (PCR) Not Detected (Not Detectd) SARS-CoV-2 (PCR) Not Detected (Not Detectd) 10/21/23 10/21/23 10/21/23 Range/Units 20:34 20:34 20:34 WBC (3.8-10.6) k/uL RBC (3.80-5.40) m/uL Hgb (11.4-16.0) gm/dL Hct (34.0-46.0) % MCV (80.0-100.0) fL MCH (25.0-35.0) pg MCHC (31.0-37.0) g/dL RDW (11.5-15.5) % Plt Count (150-450) k/uL MPV Neutrophils % % Lymphocytes % % Monocytes % % Eosinophils % % Basophils % % Neutrophils # (1.3-7.7) k/uL Lymphocytes # (1.0-4.8) k/uL Monocytes # (0-1.0) k/uL Eosinophils # (0-0.7) k/uL Basophils # (0-0.2) k/uL PT (10.0-12.5) sec INR (<1.2) APTT (22.0-30.0) sec D-Dimer (<0.60) mg/L FEU Sodium 137 (137-145) mmol/L Potassium 3.7 (3.5-5.1) mmol/L Chloride 104 (98-107) mmol/L Carbon Dioxide 26 (22-30) mmol/L Anion Gap 7 mmol/L BUN 21 H (7-17) mg/dL Creatinine 0.94 (0.52-1.04) mg/dL Est GFR (CKD-EPI)AfAm 69 (>60 ml/min/1.73 sqM) Est GFR (CKD-EPI)NonAf 60 (>60 ml/min/1.73 sqM) Glucose 136 H (74-99) mg/dL Plasma Lactic Acid Lex 1.0 (0.7-2.0) mmol/L Calcium 9.6 (8.4-10.2) mg/dL Magnesium 1.9 (1.6-2.3) mg/dL Total Bilirubin 0.5 (0.2-1.3) mg/dL AST 24 (14-36) U/L ALT 18 (4-34) U/L Alkaline Phosphatase 81 (38-126) U/L Troponin I <0.012 (0.000-0.034) ng/mL NT-Pro-B Natriuret Pep 739 pg/mL Total Protein 6.7 (6.3-8.2) g/dL Albumin 4.0 (3.5-5.0) g/dL Influenza Type A (PCR) (Not Detectd) Influenza Type B (PCR) (Not Detectd) RSV (PCR) (Not Detectd) SARS-CoV-2 (PCR) (Not Detectd) Critical Care Time Critical Care Time: Yes Total Critical Care Time: 35 <Fede Brown - Last Filed: 10/21/23 23:35> Disposition <Jerson Yo - Last Filed: 10/21/23 20:46> Time of Disposition: 23:27 <Fede Brown - Last Filed: 10/21/23 23:35> Clinical Impression: COPD (chronic obstructive pulmonary disease), Tracheobronchitis, Hypoxia Disposition: ADMITTED IP TO THIS HOSP Condition: Stable Referrals: Major Nazario MD [Primary Care Provider] - 1-2 days
[2023-10-21] MEDS: SODIUM CHLORIDE 0.9% 1,000 ML IV STA (20:23)
[2023-10-21] MEDS: methylPREDNISolone SOD SUCCI 125 MG/2 ML VIAL IV STA (20:23)
[2023-10-21 20:59] LABS: Basophils # (A) 0.1 k/uL (0-0.2); Basophils % (A) 1 %; Eosinophils # (A) 0.1 k/uL (0-0.7); Eosinophils % (A) 1 %; HGB 14.5 gm/dL (11.4-16.0); Lymphocytes # (A) 0.9 k/uL (1.0-4.8); Lymphocytes % (A) 11 %; MCH 31.7 pg (25.0-35.0); MCHC 33.7 g/dL (31.0-37.0); Mean Platelet Volume 8.4; Monocytes # (A) 0.6 k/uL (0-1.0); Monocytes % (A) 7 %; Neutrophils # (A) 6.9 k/uL (1.3-7.7); Neutrophils % (A) 78 %; Platelet Count 161 k/uL (150-450); RBC 4.57 m/uL (3.80-5.40); RDW 13.9 % (11.5-15.5); WBC 8.8 k/uL (3.8-10.6)
[2023-10-21 21:08] LABS: ALT 18 U/L (4-34); AST 24 U/L (14-36); African American GFR (CKD) 69 (>60 ml/min/1.73 sqM); Alkaline Phosphatase 81 U/L (38-126); Anion Gap 7 mmol/L; Blood Urea Nitrogen 21 mg/dL (7-17); Calcium 9.6 mg/dL (8.4-10.2); Carbon Dioxide 26 mmol/L (22-30); Chloride 104 mmol/L (98-107); Glucose 136 mg/dL (74-99); Magnesium 1.9 mg/dL (1.6-2.3); Non-African American GFR(CKD) 60 (>60 ml/min/1.73 sqM); Potassium 3.7 mmol/L (3.5-5.1); Sodium 137 mmol/L (137-145); Total Bilirubin 0.5 mg/dL (0.2-1.3); Total Protein 6.7 g/dL (6.3-8.2)
[2023-10-21 21:09] LABS: INR 0.9 (<1.2); Prothrombin Time 10.4 sec (10.0-12.5)
[2023-10-21 21:16] LABS: NT-Pro-B-Type Natriuretic Pept 739 pg/mL
--- NOTE | 2023-10-21 22:28 | CT ---
EXAM: CT Angiography Chest With Intravenous Contrast CLINICAL HISTORY: ITS.REASON CT Reason: dyspnea. elevated dimer. eval for pe TECHNIQUE: Axial computed tomographic angiography images of the chest with intravenous contrast. CTDI is 27.8 mGy and DLP is 930.6 mGy-cm. This CT exam was performed using one or more of the following dose reduction techniques: automated exposure control, adjustment of the mA and/or kV according to patient size, and/or use of iterative reconstruction technique. MIP reconstructed images were created and reviewed. COMPARISON: No relevant prior studies available. FINDINGS: Pulmonary arteries: Unremarkable. No acute pulmonary embolism. Aorta: No acute findings. No thoracic aortic aneurysm. Lungs: Atelectasis in the RIGHT middle lobe. No mass. Pleural space: Unremarkable. No significant effusion. No pneumothorax. Heart: Cardiomegaly. No significant pericardial effusion. No evidence of RV dysfunction. Bones/joints: No acute fracture. No dislocation. Soft tissues: Unremarkable. Lymph nodes: Unremarkable. No enlarged lymph nodes. IMPRESSION: No acute pulmonary embolism.
--- NOTE | 2023-10-21 22:56 | XR ---
EXAM: XR Chest, 2 Views CLINICAL HISTORY: ITS.REASON XR Reason: difficulty breathing TECHNIQUE: Frontal and lateral views of the chest. COMPARISON: No relevant prior studies available. FINDINGS: Lungs: Unremarkable. No consolidation. Pleural space: Trace LEFT pleural effusion. No pneumothorax. Heart: Unremarkable. No cardiomegaly. Mediastinum: Unremarkable. Normal mediastinal contour. Bones/joints: Unremarkable. No acute fracture. IMPRESSION: Trace LEFT pleural effusion.
[2023-10-21] MEDS ORDERED: IPRATROPIUM-ALBUTEROL 3 ML NEB INHALATION PRN ×2 (23:19→23:26)
[2023-10-21] MEDS ORDERED: NALOXONE 0.4 MG/ML 1 ML VIAL IV PRN (23:22)
[2023-10-22] MEDS: AZITHROMYCIN 500 MG in SODIUM CHLORIDE 0.9% 250 ML IVPB STA (00:57)
[2023-10-22] MEDS: PARoxetine 20 MG TAB PO SCH (00:59)
[2023-10-22] MEDS: HEPARIN SODIUM,PORCINE 5,000 UNIT/ML 1 ML VIAL SQ SCH (01:12)
--- NOTE | 2023-10-22 02:57 | P.CNPUL ---
History of Present Illness Consult date: 10/22/23 Requesting physician: Fede Brown Reason for consult: COPD Chief complaint: Shortness of breath, wheezing, chest tightness History of present illness: Patient is a 72-year-old white female with past medical history significant for COPD, obstructive sleep apnea with home CPAP device, seasonal allergies, hyperlipidemia, hypertension, obesity, breast abscess, and is a former tobacco smoker. Patient follows with Dr. Nazario as her primary care provider. She has seen Dr. Lieberman in the past, for management of her GLADYS. Patient has severe obstructive sleep apnea with apnea-hypopnea index of 109. She utilizes a CPAP at bedtime with a pressure of 16 cm of water. Patient presented to the emergency room last night with worsening shortness of breath accompanied with wheezing and chest tightness. Denies any fevers, sputum production, chest pain. She does state that her was sick last week with cold-like symptoms. She initially thought it was her allergies, she had a runny nose, sneezing, and persistent nonproductive cough that started approximately 24 hours ago.. She then developed some chest congestion followed by shortness of breath, wheezing, and chest tightness. She has been using her as needed albuterol inhaler without much relief. She is also taking Symbicort twice daily. Chest x-ray on arrival did not show any acute cardiopulmonary process. There was an elevated D-dimer, and the patient had a follow-up chest CTA which was unremarkable. No filling defects consistent with pulmonary embolism. Negative for influenza, RSV, COVID on arrival. CBC unremarkable, no leukocytosis. BMP also unremarkable. Troponin less than 0.012. NT proBNP 739. EKG shows possible junctional rhythm without any obvious acute ST abnormalities. Nondiagnostic for acute ischemia. Patient is currently sitting up in bed, on 2 L/min nasal cannula, in no acute distress. She does not wear any oxygen at home. Afebrile. Patient empirically started on azithromycin. Nontoxic appearance. Vital signs are stable. Review of Systems REVIEW OF SYSTEMS: CONSTITUTIONAL: Denies any recent significant weight loss or weight gain. EYES: Denies change in vision. EARS, NOSE, MOUTH, THROAT: Denies headaches, denies sore throat. Admits rhinorrhea and postnasal drip CARDIOVASCULAR: Denies chest pain, palpitations or syncopal episodes. RESPIRATORY: See HPI GASTROINTESTINAL: Denies change in appetite, abdominal pain, nausea and vomiting, or diarrhea GENITOURINARY: Denies hematuria, denies infections. MUSKULOSKELETAL: Denies pain, denies swelling. INTEGUMENTARY: Denies rash, denies eczema. NEUROLOGICAL: Denies recent memory loss, no recent seizure activity. PSYCHIATRIC: Denies anxiety, denies depression. HEMATOLOGIC/LYMPHATIC: Denies anemia, denies enlarged lymph node Past Medical History Past Medical History: Hyperlipidemia, Hypertension, Pneumonia Additional Past Medical History / Comment(s): Arthritis History of Any Multi-Drug Resistant Organisms: None Reported Past Surgical History: Appendectomy, Breast Surgery, Heart Catheterization, Joint Replacement, Orthopedic Surgery, Tonsillectomy Additional Past Surgical History / Comment(s): Hx. right cyst aspiration, left breast excisional bx. Bilateral knee replacement Past Anesthesia/Blood Transfusion Reactions: Postoperative Nausea & Vomiting (PONV) Past Psychological History: No Psychological Hx Reported Smoking Status: Former smoker Past Alcohol Use History: Occasional Past Drug Use History: None Reported Medications and Allergies Home Medications Medication Instructions Recorded Confirmed Type Naproxen Sodium [Aleve] 220 mg PO DAILY 05/06/18 10/21/23 History PARoxetine [Paxil] 20 mg PO HS 05/06/18 10/21/23 History Simvastatin [Zocor] 40 mg PO Q2D@2100 05/06/18 10/21/23 History Cholecalciferol [Vitamin D3 (25 50 mcg PO HS 03/27/19 10/21/23 History Mcg = 1000 Iu)] Albuterol Inhaler [Ventolin Hfa 2 puff INHALATION RT-QID PRN 10/21/23 10/21/23 H istory Inhaler] Melatonin 3 mg PO HS PRN 10/21/23 10/21/23 History Allergies Allergy/AdvReac Type Severity Reaction Status Date / Time acetaminophen [From NyQuil] Allergy Dyspnea Verified 10/21/23 20:30 dextromethorphan Allergy Dyspnea Verified 10/21/23 20:30 [From NyQuil] doxylamine [From NyQuil] Allergy Dyspnea Verified 10/21/23 20:30 pseudoephedrine [From NyQuil] Allergy Dyspnea Verified 10/21/23 20:30 tetracycline AdvReac Nausea Verified 10/21/23 20:30 Physical Exam Vitals: Vital Signs Temp Pulse Resp BP Pulse Ox 10/22/23 00:48 97.5 F L 75 21 167/85 94 L 10/21/23 23:05 78 10/21/23 22:54 90 10/21/23 19:47 72 10/21/23 19:38 75 10/21/23 19:14 99.6 F 80 26 H 194/80 92 L Intake and Output 10/21/23 10/21/23 10/22/23 14:59 22:59 06:59 Other: Weight 131.542 kg 131.542 kg GENERAL EXAM: Alert, 72-year-old pleasant, obese, white female, comfortable in no apparent distress. HEAD: Normocephalic and atraumatic EYES: Normal reaction of pupils, equal size. NOSE: Clear with pink turbinates. THROAT: No erythema or exudates. NECK: No masses, no JVD. CHEST: No chest wall deformity. LUNGS: Equal air entry with rhonchi and scattered expiratory wheezes. On 2 L/min nasal cannula. 94%. no conversational dyspnea or accessory muscle use while at rest CVS: S1 and S2 normal with no audible murmur, regular rhythm. No extra heart sounds ABDOMEN: Obese abdomen, no hepatosplenomegaly, active bowel sounds, no guarding or rigidity. SPINE: No scoliosis or deformity SKIN: No rashes CENTRAL NERVOUS SYSTEM: No focal deficits, tone is normal in all 4 extremities. EXTREMITIES: There is no peripheral edema, clubbing, or cyanosis. Peripheral pulses are intact. Results - Laboratory Findings CBC and BMP: 10/21/23 20:34 10/21/23 20:34 PT/INR, D-dimer PT 10.4 sec (10.0-12.5) 10/21/23 20:34 INR 0.9 (<1.2) 10/21/23 20:34 D-Dimer 1.16 mg/L FEU (<0.60) H 10/21/23 20:34 Abnormal lab findings: Abnormal Labs 10/21/23 10/21/23 10/21/23 20:34 20:34 20:34 Lymphocytes # 0.9 L D-Dimer 1.16 H BUN 21 H Glucose 136 H - Diagnostic Findings Chest x-ray: image reviewed CT scan - chest: image reviewed Assessment and Plan Assessment: Acute COPD exacerbation, chest x-ray does not show any acute cardiopulmonary process. Negative for influenza, RSV, COVID. Acute hypoxemic respiratory failure, currently on 2 L/min nasal cannula, secondary to above History of severe obstructive sleep apnea, maintained on CPAP with pressure of 16 cm of H2O. will bring in from home Morbid obesity, with a BMI of 46.8 kg/m History of hypertension History of hyperlipidemia History of seasonal allergies Former tobacco smoker Plan: Patient's medications, labs, imaging reviewed Continue supplemental oxygen to maintain oxygen saturation of 92% or greater Continue combination of DuoNebs [id number]. Add Symbicort inhaler. Continue IV Solu-Medrol Patient was empirically started on azithromycin in the emergency room. Afebrile. No leukocytosis. No reported purulent sputum. Add procalcitonin level to morning labs Anticipate 24 to 48-hour hospital stay. Patient's will bring in home CPAP device in the morning. We will continue to follow. I have personally seen and examined the patient, performed the documentation and the assessment and plan as written. Number of minutes spent on the visit:20 Time with Patient: Greater than 30
[2023-10-22] MEDS: IPRATROPIUM-ALBUTEROL 3 ML NEB INHALATION PRN (03:14)
--- NOTE | 2023-10-22 04:42 | P.HPIM ---
History of Present Illness H&P Date: 10/22/23 Chief Complaint: Shortness of breath 72-year-old female with COPD not on home oxygen hypertension Patient coming in for worsening shortness of breath associated with wheezing and coughing denies any hemoptysis denies any fevers or chills denies any chest pain. She does report positive sick contact with her who had upper respiratory infection symptoms last week. He was also having some nasal congestion and runny nose which she thought due to seasonal allergies over the past week, however today her symptoms progressed quickly and she was short of breath even at rest while doing nothing he was using her inhalers very frequently at home without much improvement or benefit patient uses albuterol and Symbicort. Due to worsening of her symptoms she decided to come in for evaluation upon presentation in the ED she was slightly hypoxic despite getting multiple breathing treatments. She otherwise denies any recent travel or hospital stay denies any history of blood clots Patient denies tobacco smoking illicit drug or alcohol review of systems Pertinent positives as noted in HPI. All other systems were reviewed and are negative on exam Constitutional: No acute distress, Eyes: Anicteric sclerae, moist conjunctiva, Pupils equal round reactive to light ENMT: NC/AT Oropharynx clear, no erythema, or exudates Neck: Supple, no masses, or JVD No carotid bruits No thyromegaly Lungs: Audible breath sounds throughout, no wheezing Clear to percussion Normal respiratory effort, no accessory muscle use Cardiovascular: Heart regular in rate and rhythm, No murmurs, gallops, or rubs No peripheral edema Abdominal: Soft Nontender, no guarding, rebound or rigidity Abdomen moving with respiration Normoactive bowel sounds Extremities: No digital cyanosis No clubbing Pedal pulses intact and symmetrical Radial pulses intact and symmetrical No calf tenderness Psychiatric: Alert and oriented to person, place and time Appropriate affect fair judgement Neuro Muscles Strength 5/5 in all 4 extremities Sensation to light touch grossly present throughout Cranial nerves II-XII grossly intact Past Medical History Past Medical History: Hyperlipidemia, Hypertension, Pneumonia Additional Past Medical History / Comment(s): Arthritis History of Any Multi-Drug Resistant Organisms: None Reported Past Surgical History: Appendectomy, Breast Surgery, Heart Catheterization, Joint Replacement, Orthopedic Surgery, Tonsillectomy Additional Past Surgical History / Comment(s): Hx. right cyst aspiration, left breast excisional bx. Bilateral knee replacement Past Anesthesia/Blood Transfusion Reactions: Postoperative Nausea & Vomiting (PONV) Past Psychological History: No Psychological Hx Reported Smoking Status: Former smoker Past Alcohol Use History: Occasional Past Drug Use History: None Reported Medications and Allergies Home Medications Medication Instructions Recorded Confirmed Type Naproxen Sodium [Aleve] 220 mg PO DAILY 05/06/18 10/21/23 History PARoxetine [Paxil] 20 mg PO HS 05/06/18 10/21/23 History Simvastatin [Zocor] 40 mg PO Q2D@2100 05/06/18 10/21/23 History Cholecalciferol [Vitamin D3 (25 50 mcg PO HS 03/27/19 10/21/23 History Mcg = 1000 Iu)] Albuterol Inhaler [Ventolin Hfa 2 puff INHALATION RT-QID PRN 10/21/23 10/21/23 History Inhaler] Melatonin 3 mg PO HS PRN 10/21/23 10/21/23 History Allergies Allergy/AdvReac Type Severity Reaction Status Date / Time acetaminophen [From NyQuil] Allergy Dyspnea Verified 10/21/23 20:30 dextromethorphan Allergy Dyspnea Verified 10/21/23 20:30 [From NyQuil] doxylamine [From NyQuil] Allergy Dyspnea Verified 10/21/23 20:30 pseudoephedrine [From NyQuil] Allergy Dyspnea Verified 10/21/23 20:30 tetracycline AdvReac Nausea Verified 10/21/23 20:30 Physical Exam Vitals: Vital Signs Temp Pulse Pulse Resp BP BP Pulse Ox 10/22/23 03:24 72 10/22/23 03:14 69 10/22/23 01:42 98.2 F 69 18 119/66 92 L 10/22/23 00:48 97.5 F L 75 21 167/85 94 L 10/21/23 23:05 78 10/21/23 22:54 90 10/21/23 19:47 72 10/21/23 19:38 75 10/21/23 19:14 99.6 F 80 26 H 194/80 92 L Intake and Output 10/21/23 10/21/23 10/22/23 14:59 22:59 06:59 Other: Weight 131.542 kg 131.542 kg Results CBC & Chem 7: 10/21/23 20:34 10/21/23 20:34 Labs: Abnormal Lab Results - Last 24 Hours (Table) 10/21/23 10/21/23 10/21/23 Range/Units 20:34 20:34 20:34 Lymphocytes # 0.9 L (1.0-4.8) k/uL D-Dimer 1.16 H (<0.60) mg/L FEU BUN 21 H (7-17) mg/dL Glucose 136 H (74-99) mg/dL Thrombosis Risk Factor Assmnt - Choose All That Apply Any of the Below Risk Factors Present?: Yes Each Factor Represents 1 point: Abnormal pulmonary function (COPD), Swollen legs (current) Each Risk Factor Represents 2 Points: Age 61-74 years Thrombosis Risk Factor Assessment Total Risk Factor Score: 4 Thrombosis Risk Factor Assessment Level: Moderate Risk Assessment and Plan Assessment: 72-year-old female with obstructive sleep apnea, COPD, hypertension, GERD with progressive shortness of breath with no relief with home inhalers I discussed case with ED doctor and accepted the admission for acute COPD exacerbation with anticipated length of stay more than 2 midnights Acute hypoxic respiratory failure Acute COPD exacerbation Acute respiratory viral panel negative for COVID RSV and influenza Elevated D-dimer, CT angio of the chest negative for PE Continue with azithromycin 500 mg p.o. daily Supplemental oxygen as needed Systemic IV steroids 60 mg IV push every 6 hours Resume home inhalers Symbicort DuoNeb as needed every 4 hours Blood work showing white count 8.8 hemoglobin 14.5 BUN 21 creatinine 0.94 Full code DVT prophylaxis heparin subcu 3 times daily
[2023-10-22] MEDS: methylPREDNISolone SOD SUCCI 125 MG/2 ML VIAL IV SCH (04:47)
[2023-10-22] MEDS ORDERED: IPRATROPIUM-ALBUTEROL 3 ML NEB INHALATION PRN (04:58)
[2023-10-22 05:13] LABS: Basophils % (A) 0 %; Eosinophils % (A) 0 %; Lymphocytes # (A) 0.6 k/uL (1.0-4.8); Lymphocytes % (A) 9 %; MCHC 32.6 g/dL (31.0-37.0); MCV 95.3 fL (80.0-100.0); Mean Platelet Volume 8.5; Monocytes # (A) 0.2 k/uL (0-1.0); Monocytes % (A) 3 %; Neutrophils # (A) 5.2 k/uL (1.3-7.7); Neutrophils % (A) 86 %; Platelet Count 157 k/uL (150-450); RBC 4.51 m/uL (3.80-5.40)
[2023-10-22 05:36] LABS: ALT 19 U/L (4-34); AST 24 U/L (14-36); African American GFR (CKD) 82 (>60 ml/min/1.73 sqM); Albumin 3.9 g/dL (3.5-5.0); Alkaline Phosphatase 78 U/L (38-126); Anion Gap 8 mmol/L; Blood Urea Nitrogen 18 mg/dL (7-17); Calcium 9.3 mg/dL (8.4-10.2); Carbon Dioxide 26 mmol/L (22-30); Chloride 104 mmol/L (98-107); Glucose 173 mg/dL (74-99); Non-African American GFR(CKD) 71 (>60 ml/min/1.73 sqM); Potassium 3.8 mmol/L (3.5-5.1); Sodium 138 mmol/L (137-145); Total Bilirubin 0.3 mg/dL (0.2-1.3); Total Protein 6.6 g/dL (6.3-8.2)
[2023-10-22 06:07] LABS: Glucose,Whole Blood 161 mg/dL (70-110)
[2023-10-22 07:30] LABS: Glucose,Whole Blood 157 mg/dL (70-110)
[2023-10-22] MEDS: NAPROXEN 250 MG TAB PO SCH (08:18)
[2023-10-22] MEDS ORDERED: methylPREDNISolone SOD SUCCI 40 MG/ML 1 ML VIAL IV SCH (09:00)
[2023-10-22] MEDS: IPRATROPIUM-ALBUTEROL 3 ML NEB INHALATION SCH (09:08)
[2023-10-22] MEDS: SYMBICORT 160-4.5 MCG INHALER INHALATION SCH (09:10)
[2023-10-22] MEDS: AZITHROMYCIN 500 MG TAB PO SCH (09:18)
[2023-10-22 11:31] LABS: Glucose,Whole Blood 146 mg/dL (70-110)
--- NOTE | 2023-10-22 13:56 | P.PN ---
Progress Note - Text Progress Note Date: 10/22/23 Patient is a 72-year-old female with a history of COPD not on home oxygen who came in last night for shortness of breath. She was diagnosed with COPD exacerbation. Patient was seen this morning by me. Patient's O2 requirements are worsening. However patient states that she is feeling better. I agree with the current plan which is to continue with steroids antibiotics and breathing treatment for treatment of COPD exacerbation. Pulmonology is following the patient. Patient's proBNP is within normal limits for age. I reviewed CTA chest that shows no consolidation or pleural effusion. Also no pulmonary embolism was seen. I suspect patient's primary reason for her shortness of breath and hypoxia is COPD exacerbation. I believe anxiety may also be contributing. I will start the patient on a low-dose Xanax. Patient is low threshold for transfer to ICU. Please see H&P for full history, exam and plan.
[2023-10-22 16:47] LABS: Glucose,Whole Blood 185 mg/dL (70-110)
[2023-10-22 20:15] LABS: Glucose,Whole Blood 152 mg/dL (70-110)
[2023-10-23 05:41] LABS: Glucose,Whole Blood 185 mg/dL (70-110)
--- NOTE | 2023-10-23 07:39 | P.PN ---
Subjective Progress Note Date: 10/23/23 72 year old F with PMH of COPD, Anxiety, HLD, former smoker presents to the ED for SOB/wheezing. She does report positive sick contact with her who had upper respiratory infection symptoms last week. He was also having some nasal congestion and runny nose which she thought due to seasonal allergies. over the past week, In the ED she underwent extensive evaluation. BP 194/80, RR 26, HR 80, T 99.6F, 92% on RA. She was as low as 89% on 4L NC in the ED. CBC, Coag panel, CMP performed significant for BUN 21, glu 136. Lactic acid 1. Mag 1.9. Troponin < 0.012, EKG junctional rhythm, incomplete RBBB with no ST elevation. BNP 739. COVID, Flu, RSV negative. D-Dimer 1.16. CXR trace left pleural eff usion. CTA chest no PE. Patient was admitted for COPD exacerbation. Pulmonary is consulted. 10/22 Patient was seen and examined. Improved breathing but still short of breath. Has nebulizer at home. 93% on 6L NC. Pro-kem is 0.06. CBC and BMP pending. General: non toxic, no distress, appears at stated age Derm: warm, dry Head: atraumatic, normocephalic, symmetric Eyes: EOMI, no lid lag, anicteric sclera Mouth: no lip lesion, mucus membranes moist Cardiovascular: S1S2 reg, no murmur Lungs: Decreased BS bilateral, no rhonchi, no rales , no accessory muscle use Ext: no gross muscle atrophy, no edema, no contractures Neuro: no focal neuro deficits Psych: Alert, oriented, appropriate affect Based on my assessment of this patient, this patient meets a high complexity level of care. Patient has an acute diagnosis of acute hypoxic respiratory failure secondary to COPD exacerbation that poses a threat to life or bodily function. Acute hypoxic respiratory failure COPD exacerbation: DuoNeb QID scheduled and Q2H PRN for SOB/wheezing. Solumedrol 60 mg IV Q6H. Symbicort 2 INH BID. Azithromycin 500 mg PO QD x 3 days for acute bronchitis.Telemetry monitoring. Attempt to wean oxygen. Pulmonary on board. Anxiety: Paxil 20 mg PO QHS. Xanax 0.25 mg PO BID PRN. Dyslipidemia: Lipitor 20 mg PO Q2D. CODE STATUS: FULL CODE. DVT Prophylaxis: Heparin SQ. GI Prophylaxis: Protonix PO Designated medical POA if patient is not able to make medical decisions for themselves: I have reviewed the following edi consultant notes: Pulmonary. I have reviewed the results of the following tests: I have ordered the following tests: CBC, BMP pending. I have discussed the care of this patient with the following independent historian: I have independently interpreted the following test below: I have discussed the management of this patient with the following physician: Objective - Vital Signs Vital signs: Vital Signs Temp 97.8 F 10/23/23 02:04 Pulse 71 10/23/23 02:04 Resp 20 10/23/23 02:04 BP 128/63 10/23/23 02:04 Pulse Ox 93 L 10/23/23 02:04 FiO2 40 10/23/23 04:53 Intake & Output 10/22/23 10/22/23 10/23/23 06:59 18:59 06:59 Intake Total 730 462 Output Total 400 1 Balance 330 461 Weight 131.542 kg Intake: Intake, IV Titration 250 Amount Azithromycin 500 mg In 250 Sodium Chloride 0.9% 250 ml @ 250 mls/hr IVPB ONCE STA Rx#:[id number] Oral 480 462 Output: Urine 400 Stool 1 Other: Voiding Method Bedside Commode External Catheter # Voids 2 2 2 # Bowel Movements 1 - Labs CBC & Chem 7: 10/22/23 04:35 10/22/23 04:35 Labs: Abnormal Lab Results - Last 24 Hours (Table) 10/22/23 10/22/23 10/22/23 Range/Units 07:29 11:27 16:46 POC Glucose (mg/dL) 157 H 146 H 185 H (70-110) mg/dL 10/22/23 10/23/23 Range/Units 20:13 05:37 POC Glucose (mg/dL) 152 H 185 H (70-110) mg/dL
[2023-10-23 08:48] LABS: Basophils # (A) 0.01 X 10*3/uL (0.00-0.10); Basophils % (A) 0.1 %; Eosinophils # (A) 0 X 10*3/uL (0.04-0.35); Eosinophils % (A) 0 %; HCT 40.6 % (37.2-46.3); Lymphocytes # (A) 1.13 X 10*3/uL (0.90-5.00); Lymphocytes % (A) 11.2 %; MCH 30.2 pg (27.0-32.0); MCV 94.2 FL (80.0-97.0); Mean Platelet Volume 11.1 FL (9.5-12.2); Monocytes # (A) 0.33 X 10*3/uL (0.20-1.00); Monocytes % (A) 3.3 %; NRBC Per 100 WBC 0 X 10*3/uL (0.00-0.01); Neutrophils % (A) 84.9 %; Platelet Count 188 X 10*3/uL (140-440); RBC 4.31 X 10*6/uL (4.10-5.20); RDW 13.7 % (11.5-14.5); WBC 10.12 X 10*3/uL (4.50-10.00)
[2023-10-23] MEDS: PANTOPRAZOLE 40 MG TABLET PO SCH (09:35)
[2023-10-23 09:56] LABS: BUN/Creat Ratio 26.11 Ratio (12.00-20.00); Blood Urea Nitrogen 23.5 mg/dL (9.0-27.0); Calcium 9.3 mg/dL (8.7-10.3); Carbon Dioxide 27.2 mmol/L (21.6-31.8); Chloride 102 mmol/L (96-109); Glucose 165 mg/dL (70-110); Potassium 4.2 mmol/L (3.5-5.5); Sodium 140 mmol/L (135-145)
[2023-10-23 11:49] LABS: Glucose,Whole Blood 164 mg/dL (70-110)
--- NOTE | 2023-10-23 12:29 | P.PN ---
Subjective Progress Note Date: 10/23/23 Patient is a 72-year-old white female with past medical history significant for COPD, obstructive sleep apnea with home CPAP device, seasonal allergies, hyperlipidemia, hypertension, obesity, breast abscess, and is a former tobacco smoker. Patient follows with Dr. Nazario as her primary care provider. She has seen Dr. Lieberman in the past, for management of her GLADYS. Patient has severe obstructive sleep apnea with apnea-hypopnea index of 109. She utilizes a CPAP at bedtime with a pressure of 16 cm of water. Patient presented to the emergency room last night with worsening shortness of breath accompanied with wheezing and chest tightness. Denies any fevers, sputum production, chest pain. She does state that her was sick last week with cold-like symptoms. She initially thought it was her allergies, she had a runny nose, sneezing, and persistent nonproductive cough that started approximately 24 hours ago.. She then developed some chest congestion followed by shortness of breath, wheezing, and chest tightness. She has been using her as needed albuterol inhaler without much relief. She is also taking Symbicort twice daily. Chest x-ray on arrival did not show any acute cardiopulmonary process. There was an elevated D-dimer, and the patient had a follow-up chest CTA which was unremarkable. No filling defects consistent with pulmonary embolism. Negative for influenza, RSV, COVID on arrival. CBC unremarkable, no leukocytosis. BMP also unremarkable. Troponin less than 0.012. NT proBNP 739. EKG shows possible junctional rhythm without any obvious acute ST abnormalities. Nondiagnostic for acute ischemia. Patient is currently sitting up in bed, on 2 L/min nasal cannula, in no acute distress. She does not wear any oxygen at home. Afebrile. Patient empirically started on azithromycin. Nontoxic appearance. Vital signs are stable. The patient is seen today October 23, 2023 in follow-up on the regular medical floor. She is currently sitting up in bed. Awake and alert in no acute distress. Breathing a bit easier today compared to yesterday. She is currently on 6 L high flow nasal cannula. No IV fluids. She did utilize BiPAP 12/5 and 40% FiO2 throughout the night. She does have a home CPAP machine. White count 10.1. Hemoglobin 13.0. Platelets 188. Sodium 140. Potassium 4.2. Bicarb 27. BUN 23. Creatinine 0.9. Glucose 165. She is continued on DuoNeb inhalations, Symbicort, Solu-Medrol. Heparin for DVT prophylaxis. Objective - Vital Signs Vital signs: Vital Signs Temp 97.8 F 10/23/23 07:16 Pulse 78 10/23/23 11:24 Resp 17 10/23/23 07:16 BP 127/86 10/23/23 07:16 Pulse Ox 95 10/23/23 07:16 FiO2 40 10/23/23 11:09 Intake & Output 10/22/23 10/23/23 10/23/23 18:59 06:59 18:59 Intake Total 462 Output Total 1 Balance 461 Intake: Oral 462 Output: Stool 1 Other: Voiding Method External Catheter External Catheter # Voids 2 2 - Exam GENERAL EXAM: Alert, obese, very pleasant 72-year-old pleasant, 6 L nasal cannula, comfortable in no apparent distress. HEAD: Normocephalic and atraumatic EYES: Normal reaction of pupils, equal size. NOSE: Clear with pink turbinates. THROAT: No erythema or exudates. NECK: No masses, no JVD. CHEST: No chest wall deformity. LUNGS: Equal air entry with rhonchi and scattered expiratory wheezes. No conversational dyspnea. CVS: S1 and S2 normal with no audible murmur, regular rhythm. No extra heart sounds ABDOMEN: Obese abdomen, no hepatosplenomegaly, active bowel sounds, no guarding or rigidity. SPINE: No scoliosis or deformity SKIN: No rashes CENTRAL NERVOUS SYSTEM: No focal deficits, tone is normal in all 4 extremities. EXTREMITIES: There is no peripheral edema, clubbing, or cyanosis. Peripheral pulses are intact. - Labs CBC & Chem 7: 10/23/23 04:35 10/23/23 04:35 Labs: Abnormal Lab Results - Last 24 Hours (Table) 10/22/23 10/22/23 10/23/23 Range/Units 16:46 20:13 04:35 WBC 10.12 H (4.50-10.00) X 10*3/uL Immature Gran # 0.05 H (0.00-0.04) X 10*3/uL Neutrophils # 8.60 H (1.80-7.70) X 10*3/uL Eosinophils # 0 L (0.04-0.35) X 10*3/uL BUN/Creatinine Ratio (12.00-20.00) Ratio Glucose (70-110) mg/dL POC Glucose (mg/dL) 185 H 152 H (70-110) mg/dL 10/23/23 10/23/23 10/23/23 Range/Units 04:35 05:37 11:47 WBC (4.50-10.00) X 10*3/uL Immature Gran # (0.00-0.04) X 10*3/uL Neutrophils # (1.80-7.70) X 10*3/uL Eosinophils # (0.04-0.35) X 10*3/uL BUN/Creatinine Ratio 26.11 H (12.00-20.00) Ratio Glucose 165 H (70-110) mg/dL POC Glucose (mg/dL) 185 H 164 H (70-110) mg/dL Assessment and Plan Assessment: Acute COPD exacerbation, chest x-ray does not show any acute cardiopulmonary pr ocess. Negative for influenza, RSV, COVID Acute hypoxemic respiratory failure, currently on 6 L/min nasal cannula, secondary to above History of severe obstructive sleep apnea, maintained on CPAP with pressure of 16 cm of H2O. Morbid obesity, with a BMI of 46.8 kg/m Hypertension Hyperlipidemia History of seasonal allergies Former tobacco smoker Plan: The patient was seen and evaluated Labs and medications reviewed Continue the current treatment plan Titrate down the FiO2 as tolerated Continue BiPAP/CPAP support We will continue to follow I have personally seen and examined the patient, performed the documentation and the assessment and plan as written. Number of minutes spent on the visit: 10.
[2023-10-23 16:38] LABS: Glucose,Whole Blood 116 mg/dL (70-110)
[2023-10-23] MEDS: ATORVASTATIN 20 MG TAB PO SCH (20:19)
[2023-10-23 21:48] LABS: Glucose,Whole Blood 135 mg/dL (70-110)
[2023-10-24 05:49] LABS: Glucose,Whole Blood 140 mg/dL (70-110)
[2023-10-24 11:08] LABS: Glucose,Whole Blood 245 mg/dL (70-110)
--- NOTE | 2023-10-24 13:32 | P.PN ---
Subjective Progress Note Date: 10/24/23 72 year old F with PMH of COPD, Anxiety, HLD, former smoker presents to the ED for SOB/wheezing. She does report positive sick contact with her who had upper respiratory infection symptoms last week. He was also having some nasal congestion and runny nose which she thought due to seasonal allergies. over the past week, In the ED she underwent extensive evaluation. BP 194/80, RR 26, HR 80, T 99.6F, 92% on RA. She was as low as 89% on 4L NC in the ED. CBC, Coag panel, CMP performed significant for BUN 21, glu 136. Lactic acid 1. Mag 1.9. Troponin < 0.012, EKG junctional rhythm, incomplete RBBB with no ST elevation. BNP 739. COVID, Flu, RSV negative. D-Dimer 1.16. CXR trace left pleural eff usion. CTA chest no PE. Patient was admitted for COPD exacerbation. Pulmonary is consulted. 10/22 Patient was seen and examined. Improved breathing but still short of breath. Has nebulizer at home. 93% on 6L NC. Pro-kem is 0.06. CBC WBC 10.12 with neutrophilia. BMP BUN/Cr 26.11, glu 165. 10/23 Patient was seen and examined. Breathing is stable. Currently 93% on 4L NC. General: non toxic, no distress, appears at stated age Derm: warm, dry Head: atraumatic, normocephalic, symmetric Eyes: EOMI, no lid lag, anicteric sclera Mouth: no lip lesion, mucus membranes moist Cardiovascular: S1S2 reg, no murmur Lungs: Decreased BS bilateral, no rhonchi, no rales , no accessory muscle use Ext: no gross muscle atrophy, no edema, no contractures Neuro: no focal neuro deficits Psych: Alert, oriented, appropriate affect Based on my assessment of this patient, this patient meets a high complexity level of care. Patient has an acute diagnosis of acute hypoxic respiratory failure secondary to COPD exacerbation that poses a threat to life or bodily function. Acute hypoxic respiratory failure COPD exacerbation: DuoNeb QID scheduled and Q2H PRN for SOB/wheezing. Solumedrol 60 mg IV Q6H. Symbicort 2 INH BID. Azithromycin 500 mg PO QD x 3 days for acute bronchitis.Telemetry monitoring. Attempt to wean oxygen. Pulmonary on board. Anxiety: Paxil 20 mg PO QHS. Xanax 0.25 mg PO BID PRN. Dyslipidemia: Lipitor 20 mg PO Q2D. CODE STATUS: FULL CODE. DVT Prophylaxis: Heparin SQ. GI Prophylaxis: Protonix PO Designated medical POA if patient is not able to make medical decisions for themselves: I have reviewed the following jury consultant notes: Pulmonary. I have reviewed the results of the following tests: I have ordered the following tests: I have discussed the care of this patient with the following independent historian: . I have independently interpreted the following test below: I have discussed the management of this patient with the following physician: Objective - Vital Signs Vital signs: Vital Signs Temp 97.8 F 10/24/23 07:15 Pulse 90 10/24/23 13:20 Resp 20 10/24/23 09:08 BP 180/84 10/24/23 07:15 Pulse Ox 98 10/24/23 08:55 FiO2 40 10/24/23 08:55 Intake & Output 10/23/23 10/24/23 10/24/23 18:59 06:59 18:59 Output Total 150 150 Balance -150 -150 Output: Urine 150 150 Other: Voiding Method External Catheter External Catheter External Catheter # Voids 1 2 2 - Labs CBC & Chem 7: 10/23/23 04:35 10/23/23 04:35 Labs: Abnormal Lab Results - Last 24 Hours (Table) 10/23/23 10/23/23 10/24/23 Range/Units 16:37 21:45 05:47 POC Glucose (mg/dL) 116 H 135 H 140 H (70-110) mg/dL 10/24/23 Range/Units 11:06 POC Glucose (mg/dL) 245 H (70-110) mg/dL Microbiology - Last 24 Hours (Table) 10/21/23 20:30 Blood Culture - Preliminary Blood
--- NOTE | 2023-10-24 14:30 | P.PN ---
Subjective Progress Note Date: 10/24/23 Patient is a 72-year-old white female with past medical history significant for COPD, obstructive sleep apnea with home CPAP device, seasonal allergies, hyperlipidemia, hypertension, obesity, breast abscess, and is a former tobacco smoker. Patient follows with Dr. Nazario as her primary care provider. She has seen Dr. Lieberman in the past, for management of her GLADYS. Patient has severe obstructive sleep apnea with apnea-hypopnea index of 109. She utilizes a CPAP at bedtime with a pressure of 16 cm of water. Patient presented to the emergency room last night with worsening shortness of breath accompanied with wheezing and chest tightness. Denies any fevers, sputum production, chest pain. She does state that her was sick last week with cold-like symptoms. She initially thought it was her allergies, she had a runny nose, sneezing, and persistent nonproductive cough that started approximately 24 hours ago.. She then developed some chest congestion followed by shortness of breath, wheezing, and chest tightness. She has been using her as needed albuterol inhaler without much relief. She is also taking Symbicort twice daily. Chest x-ray on arrival did not show any acute cardiopulmonary process. There was an elevated D-dimer, and the patient had a follow-up chest CTA which was unremarkable. No filling defects consistent with pulmonary embolism. Negative for influenza, RSV, COVID on arrival. CBC unremarkable, no leukocytosis. BMP also unremarkable. Troponin less than 0.012. NT proBNP 739. EKG shows possible junctional rhythm without any obvious acute ST abnormalities. Nondiagnostic for acute ischemia. Patient is currently sitting up in bed, on 2 L/min nasal cannula, in no acute distress. She does not wear any oxygen at home. Afebrile. Patient empirically started on azithromycin. Nontoxic appearance. Vital signs are stable. The patient is seen today October 23, 2023 in follow-up on the regular medical floor. She is currently sitting up in bed. Awake and alert in no acute distress. Breathing a bit easier today compared to yesterday. She is currently on 6 L high flow nasal cannula. No IV fluids. She did utilize BiPAP 12/5 and 40% FiO2 throughout the night. She does have a home CPAP machine. White count 10.1. Hemoglobin 13.0. Platelets 188. Sodium 140. Potassium 4.2. Bicarb 27. BUN 23. Creatinine 0.9. Glucose 165. She is continued on DuoNeb inhalations, Symbicort, Solu-Medrol. Heparin for DVT prophylaxis. The patient is seen today October 24, 2019 for follow-up on the regular medical floor. She is awake and alert in no acute distress currently resting in bed. She is still dyspneic with conversation. Dyspneic with minimal exertion. She is maintaining O2 saturations in the 90s on 4 L/min per nasal cannula. She did utilize BiPAP last night 06/05 and 40% FiO2. She is continued on Symbicort, DuoNeb elations, Solu-Medrol. Procalcitonin was 0.06. She is on heparin for DVT prophylaxis. Culture revealing no growth. Blood sugar 140. Objective - Vital Signs Vital signs: Vital Signs Temp 97.9 F 10/24/23 14:00 Pulse 81 10/24/23 14:00 Resp 18 10/24/23 14:00 BP 176/50 10/24/23 14:00 Pulse Ox 95 10/24/23 14:00 FiO2 40 10/24/23 08:55 Intake & Output 10/23/23 10/24/23 10/24/23 18:59 06:59 18:59 Output Total 150 150 Balance -150 -150 Output: Urine 150 150 Other: Voiding Method External Catheter External Catheter External Catheter # Voids 1 2 2 - Exam GENERAL EXAM: Alert, obese, 72-year-old pleasant, 4 L nasal cannula, in no apparent distress. HEAD: Normocephalic and atraumatic EYES: Normal reaction of pupils, equal size. NOSE: Clear with pink turbinates. THROAT: No erythema or exudates. NECK: No masses, no JVD. CHEST: No chest wall deformity. LUNGS: Equal air entry with rhonchi and scattered expiratory wheezes. Dyspnea on exertion CVS: S1 and S2 normal with no audible murmur, regular rhythm. No extra heart sounds ABDOMEN: Obese abdomen, no hepatosplenomegaly, active bowel sounds, no guarding or rigidity. SPINE: No scoliosis or deformity SKIN: No rashes CENTRAL NERVOUS SYSTEM: No focal deficits, tone is normal in all 4 extremities. EXTREMITIES: There is no peripheral edema, clubbing, or cyanosis. Peripheral pulses are intact. - Labs CBC & Chem 7: 10/23/23 04:35 10/23/23 04:35 Labs: Abnormal Lab Results - Last 24 Hours (Table) 10/23/23 10/23/23 10/24/23 Range/Units 16:37 21:45 05:47 POC Glucose (mg/dL) 116 H 135 H 140 H (70-110) mg/dL 10/24/23 Range/Units 11:06 POC Glucose (mg/dL) 245 H (70-110) mg/dL Microbiology - Last 24 Hours (Table) 10/21/23 20:30 Blood Culture - Preliminary Blood Assessment and Plan Assessment: Acute COPD exacerbation, chest x-ray does not show any acute cardiopulmonary process. Procalcitonin 0.06. Negative for influenza, RSV, COVID Acute hypoxemic respiratory failure, currently on 6 L/min nasal cannula, secondary to above History of severe obstructive sleep apnea, maintained on CPAP with pressure of 16 cm of H2O. Morbid obesity, with a BMI of 46.8 kg/m Hypertension Hyperlipidemia History of seasonal allergies Former tobacco smoker Plan: The patient was seen and evaluated Labs and medications reviewed Still somewhat bronchospastic and wheezing Continue the current treatment plan Titrate down the FiO2 as tolerated Continue BiPAP/CPAP support We will continue to follow I have personally seen and examined the patient, performed the documentation and the assessment and plan as written. Number of minutes spent on the visit: 10.
[2023-10-24 16:10] LABS: Glucose,Whole Blood 147 mg/dL (70-110)
[2023-10-25] MEDS: ALPRAZolam 0.25 MG TAB PO PRN (00:31)
[2023-10-25 07:14] LABS: Glucose,Whole Blood 135 mg/dL (70-110)
[2023-10-25 11:26] LABS: Glucose,Whole Blood 154 mg/dL (70-110)
--- NOTE | 2023-10-25 12:44 | P.PN ---
Subjective Progress Note Date: 10/25/23 72 year old F with PMH of COPD, Anxiety, HLD, former smoker presents to the ED for SOB/wheezing. She does report positive sick contact with her who had upper respiratory infection symptoms last week. He was also having some nasal congestion and runny nose which she thought due to seasonal allergies. over the past week, In the ED she underwent extensive evaluation. BP 194/80, RR 26, HR 80, T 99.6F, 92% on RA. She was as low as 89% on 4L NC in the ED. CBC, Coag panel, CMP performed significant for BUN 21, glu 136. Lactic acid 1. Mag 1.9. Troponin < 0.012, EKG junctional rhythm, incomplete RBBB with no ST elevation. BNP 739. COVID, Flu, RSV negative. D-Dimer 1.16. CXR trace left pleural eff usion. CTA chest no PE. Patient was admitted for COPD exacerbation. Pulmonary is consulted. 10/22 Patient was seen and examined. Improved breathing but still short of breath. Has nebulizer at home. 93% on 6L NC. Pro-kem is 0.06. CBC WBC 10.12 with neutrophilia. BMP BUN/Cr 26.11, glu 165. 10/23 Patient was seen and examined. Breathing is stable. Currently 93% on 4L NC. 10/24 Patient was seen and examined. Breathing is stable. Reports shortness of breath with little activity. No other complaints. Currently 94% on 4L NC. General: non toxic, no distress, appears at stated age Derm: warm, dry Head: atraumatic, normocephalic, symmetric Eyes: EOMI, no lid lag, anicteric sclera Mouth: no lip lesion, mucus membranes moist Cardiovascular: S1S2 reg, no murmur Lungs: Decreased BS bilateral, no rhonchi, no rales , no accessory muscle use Ext: no gross muscle atrophy, no edema, no contractures Neuro: no focal neuro deficits Psych: Alert, oriented, appropriate affect Based on my assessment of this patient, this patient meets a high complexity level of care. Patient has an acute diagnosis of acute hypoxic respiratory failure secondary to COPD exacerbation that poses a threat to life or bodily function. Acute hypoxic respiratory failure COPD exacerbation: DuoNeb QID scheduled and Q2H PRN for SOB/wheezing. Solumedrol 60 mg IV Q6H. Symbicort 2 INH BID. Azithromycin 500 mg PO QD x 3 days for acute bronchitis.Telemetry monitoring. Attempt to wean oxygen. Pulmonary on board. Anxiety: Paxil 20 mg PO QHS. Xanax 0.25 mg PO BID PRN. Dyslipidemia: Lipitor 20 mg PO Q2D. CODE STATUS: FULL CODE. DVT Prophylaxis: Heparin SQ. GI Prophylaxis: Protonix PO Designated medical POA if patient is not able to make medical decisions for themselves: I have reviewed the following clothing consultant notes: Pulmonary. I have reviewed the results of the following tests: I have ordered the following tests: I have discussed the care of this patient with the following independent historian: . I have independently interpreted the following test below: I have discussed the management of this patient with the following physician: Objective - Vital Signs Vital signs: Vital Signs Temp 97.8 F 10/25/23 07:33 Pulse 84 10/25/23 10:07 Resp 18 10/25/23 07:33 BP 146/74 10/25/23 07:33 Pulse Ox 99 10/25/23 09:51 FiO2 40 10/25/23 03:50 Intake & Output 10/24/23 10/25/23 10/25/23 18:59 06:59 18:59 Output Total 625 200 Balance -625 -200 Output: Urine 625 200 Other: Voiding Method External Catheter # Voids 5 - Labs CBC & Chem 7: 10/23/23 04:35 10/23/23 04:35 Labs: Abnormal Lab Results - Last 24 Hours (Table) 10/24/23 10/25/23 10/25/23 Range/Units 16:09 07:13 11:24 POC Glucose (mg/dL) 147 H 135 H 154 H (70-110) mg/dL Microbiology - Last 24 Hours (Table) 10/21/23 20:30 Blood Culture - Preliminary Blood
[2023-10-25 14:43] VITALS: RESP 17; BMI 46.7
--- NOTE | 2023-10-25 14:50 | P.PN ---
Subjective Progress Note Date: 10/25/23 Patient is a 72-year-old white female with past medical history significant for COPD, obstructive sleep apnea with home CPAP device, seasonal allergies, hyperlipidemia, hypertension, obesity, breast abscess, and is a former tobacco smoker. Patient follows with Dr. Nazario as her primary care provider. She has seen Dr. Lieberman in the past, for management of her GLADYS. Patient has severe obstructive sleep apnea with apnea-hypopnea index of 109. She utilizes a CPAP at bedtime with a pressure of 16 cm of water. Patient presented to the emergency room last night with worsening shortness of breath accompanied with wheezing and chest tightness. Denies any fevers, sputum production, chest pain. She does state that her was sick last week with cold-like symptoms. She initially thought it was her allergies, she had a runny nose, sneezing, and persistent nonproductive cough that started approximately 24 hours ago.. She then developed some chest congestion followed by shortness of breath, wheezing, and chest tightness. She has been using her as needed albuterol inhaler without much relief. She is also taking Symbicort twice daily. Chest x-ray on arrival did not show any acute cardiopulmonary process. There was an elevated D-dimer, and the patient had a follow-up chest CTA which was unremarkable. No filling defects consistent with pulmonary embolism. Negative for influenza, RSV, COVID on arrival. CBC unremarkable, no leukocytosis. BMP also unremarkable. Troponin less than 0.012. NT proBNP 739. EKG shows possible junctional rhythm without any obvious acute ST abnormalities. Nondiagnostic for acute ischemia. Patient is currently sitting up in bed, on 2 L/min nasal cannula, in no acute distress. She does not wear any oxygen at home. Afebrile. Patient empirically started on azithromycin. Nontoxic appearance. Vital signs are stable. The patient is seen today October 23, 2023 in follow-up on the regular medical floor. She is currently sitting up in bed. Awake and alert in no acute distress. Breathing a bit easier today compared to yesterday. She is currently on 6 L high flow nasal cannula. No IV fluids. She did utilize BiPAP 12/5 and 40% FiO2 throughout the night. She does have a home CPAP machine. White count 10.1. Hemoglobin 13.0. Platelets 188. Sodium 140. Potassium 4.2. Bicarb 27. BUN 23. Creatinine 0.9. Glucose 165. She is continued on DuoNeb inhalations, Symbicort, Solu-Medrol. Heparin for DVT prophylaxis. The patient is seen today October 24, 2019 for follow-up on the regular medical floor. She is awake and alert in no acute distress currently resting in bed. She is still dyspneic with conversation. Dyspneic with minimal exertion. She is maintaining O2 saturations in the 90s on 4 L/min per nasal cannula. She did utilize BiPAP last night 06/05 and 40% FiO2. She is continued on Symbicort, DuoNeb elations, Solu-Medrol. Procalcitonin was 0.06. She is on heparin for DVT prophylaxis. Culture revealing no growth. Blood sugar 140. The patient is seen today October 25, 2023 in follow-up on the regular medical floor. She is resting comfortably in bed. Awake and alert in no acute distress. Breathing easier today compared to yesterday. She is maintaining O2 saturations in the 90s on 4 L/min per nasal cannula. She did utilize BiPAP last night 06/05 and 40% FiO2. No IV fluids. She is continued on Symbicort, DuoNeb elations, Solu-Medrol. Heparin for DVT prophylaxis. Blood culture reveals no growth. Glucose 154. Objective - Vital Signs Vital signs: Vital Signs Temp 98.1 F 10/25/23 14:00 Pulse 69 10/25/23 14:00 Resp 17 10/25/23 14:00 BP 142/73 10/25/23 14:00 Pulse Ox 97 10/25/23 14:00 FiO2 40 10/25/23 03:50 Intake & Output 10/24/23 10/25/23 10/25/23 18:59 06:59 18:59 Output Total 625 200 Balance -625 -200 Weight 131.542 kg Output: Urine 625 200 Other: Voiding Method External Catheter # Voids 5 - Exam GENERAL EXAM: Alert, obese, very pleasant 72-year-old female patient, 4 L nasal cannula, in no apparent distress. HEAD: Normocephalic and atraumatic EYES: Normal reaction of pupils, equal size. NOSE: Clear with pink turbinates. THROAT: No erythema or exudates. NECK: No masses, no JVD. CHEST: No chest wall deformity. LUNGS: Equal air entry with rhonchi and scattered expiratory wheezes. Dyspnea on exertion CVS: S1 and S2 normal with no audible murmur, regular rhythm. No extra heart sounds ABDOMEN: Obese abdomen, no hepatosplenomegaly, active bowel sounds, no guarding or rigidity. SPINE: No scoliosis or deformity SKIN: No rashes CENTRAL NERVOUS SYSTEM: No focal deficits, tone is normal in all 4 extremities. EXTREMITIES: There is no peripheral edema, clubbing, or cyanosis. Peripheral pulses are intact. - Labs CBC & Chem 7: 10/23/23 04:35 10/23/23 04:35 Labs: Abnormal Lab Results - Last 24 Hours (Table) 10/24/23 10/25/23 10/25/23 Range/Units 16:09 07:13 11:24 POC Glucose (mg/dL) 147 H 135 H 154 H (70-110) mg/dL Microbiology - Last 24 Hours (Table) 10/21/23 20:30 Blood Culture - Preliminary Blood Assessment and Plan Assessment: Acute COPD exacerbation, chest x-ray does not show any acute cardiopulmonary process. Procalcitonin 0.06. Negative for influenza, RSV, COVID Acute hypoxemic respiratory failure, currently on 4 L/min nasal cannula, secondary to above History of severe obstructive sleep apnea, maintained on CPAP with pressure of 16 cm of H2O. Morbid obesity, with a BMI of 46.8 kg/m Hypertension Hyperlipidemia History of seasonal allergies Former tobacco smoker Plan: The patient was seen and evaluated Labs and medications reviewed Transition to oral steroid taper Continue DuoNeb inhalations, Symbicort Titrate down the FiO2 as tolerated Cleared for discharge from the pulmonary standpoint Follow-up in our office in 1 week I have personally seen and examined the patient, performed the documentation and the assessment and plan as written. Number of minutes spent on the visit: 10.
[2023-10-25 16:21] LABS: Glucose,Whole Blood 130 mg/dL (70-110)
[2023-10-25 20:17] LABS: Glucose,Whole Blood 179 mg/dL (70-110)
[2023-10-25] MEDS: MELATONIN 3 MG TABLET PO PRN (20:46)
[2023-10-26 05:56] LABS: Glucose,Whole Blood 116 mg/dL (70-110)
[2023-10-26] MEDS: predniSONE 20 MG TAB PO SCH (08:56)
[2023-10-26 11:15] LABS: Glucose,Whole Blood 199 mg/dL (70-110)
[2023-10-26 14:14] VITALS: BP 142/77; TEMP 98
--- NOTE | 2023-10-26 14:29 | P.PN ---
Subjective Progress Note Date: 10/26/23 Patient is a 72-year-old white female with past medical history significant for COPD, obstructive sleep apnea with home CPAP device, seasonal allergies, hyperlipidemia, hypertension, obesity, breast abscess, and is a former tobacco smoker. Patient follows with Dr. Nazario as her primary care provider. She has seen Dr. Lieberman in the past, for management of her GLADYS. Patient has severe obstructive sleep apnea with apnea-hypopnea index of 109. She utilizes a CPAP at bedtime with a pressure of 16 cm of water. Patient presented to the emergency room last night with worsening shortness of breath accompanied with wheezing and chest tightness. Denies any fevers, sputum production, chest pain. She does state that her was sick last week with cold-like symptoms. She initially thought it was her allergies, she had a runny nose, sneezing, and persistent nonproductive cough that started approximately 24 hours ago.. She then developed some chest congestion followed by shortness of breath, wheezing, and chest tightness. She has been using her as needed albuterol inhaler without much relief. She is also taking Symbicort twice daily. Chest x-ray on arrival did not show any acute cardiopulmonary process. There was an elevated D-dimer, and the patient had a follow-up chest CTA which was unremarkable. No filling defects consistent with pulmonary embolism. Negative for influenza, RSV, COVID on arrival. CBC unremarkable, no leukocytosis. BMP also unremarkable. Troponin less than 0.012. NT proBNP 739. EKG shows possible junctional rhythm without any obvious acute ST abnormalities. Nondiagnostic for acute ischemia. Patient is currently sitting up in bed, on 2 L/min nasal cannula, in no acute distress. She does not wear any oxygen at home. Afebrile. Patient empirically started on azithromycin. Nontoxic appearance. Vital signs are stable. The patient is seen today October 23, 2023 in follow-up on the regular medical floor. She is currently sitting up in bed. Awake and alert in no acute distress. Breathing a bit easier today compared to yesterday. She is currently on 6 L high flow nasal cannula. No IV fluids. She did utilize BiPAP 12/5 and 40% FiO2 throughout the night. She does have a home CPAP machine. White count 10.1. Hemoglobin 13.0. Platelets 188. Sodium 140. Potassium 4.2. Bicarb 27. BUN 23. Creatinine 0.9. Glucose 165. She is continued on DuoNeb inhalations, Symbicort, Solu-Medrol. Heparin for DVT prophylaxis. The patient is seen today October 24, 2019 for follow-up on the regular medical floor. She is awake and alert in no acute distress currently resting in bed. She is still dyspneic with conversation. Dyspneic with minimal exertion. She is maintaining O2 saturations in the 90s on 4 L/min per nasal cannula. She did utilize BiPAP last night 06/05 and 40% FiO2. She is continued on Symbicort, DuoNeb elations, Solu-Medrol. Procalcitonin was 0.06. She is on heparin for DVT prophylaxis. Culture revealing no growth. Blood sugar 140. The patient is seen today October 25, 2023 in follow-up on the regular medical floor. She is resting comfortably in bed. Awake and alert in no acute distress. Breathing easier today compared to yesterday. She is maintaining O2 saturations in the 90s on 4 L/min per nasal cannula. She did utilize BiPAP last night 06/05 and 40% FiO2. No IV fluids. She is continued on Symbicort, DuoNeb elations, Solu-Medrol. Heparin for DVT prophylaxis. Blood culture reveals no growth. Glucose 154. The patient is seen today October 26, 2023 in follow-up on the regular medical floor. He is sitting up in bed. Awake and alert in no acute distress. Maintaining O2 saturations in the 90s febrile. Hemodynamically stable. Blood culture reveals no growth. Glucose 199. She is continued on DuoNeb ventilations, Symbicort, prednisone taper. Heparin for DVT prophylaxis. To be up and evaluated by physical therapy. Objective - Vital Signs Vital signs: Vital Signs Temp 98.0 F 10/26/23 13:44 Pulse 92 10/26/23 13:44 Resp 17 10/26/23 13:44 BP 142/77 10/26/23 13:44 Pulse Ox 91 L 10/26/23 13:44 FiO2 40 10/26/23 03:34 Intake & Output 10/25/23 10/26/23 10/26/23 18:59 06:59 18:59 Output Total 500 600 Balance -500 -600 Weight 131.542 kg Output: Urine 500 600 Other: Voiding Method External Catheter External Catheter # Voids 4 - Exam GENERAL EXAM: Alert, obese, pleasant 72-year-old female, 4 L nasal cannula, in no apparent distress. HEAD: Normocephalic and atraumatic EYES: Normal reaction of pupils, equal size. NOSE: Clear with pink turbinates. THROAT: No erythema or exudates. NECK: No masses, no JVD. CHEST: No chest wall deformity. LUNGS: Equal air entry with rhonchi and scattered expiratory wheezes. Dyspnea on exertion CVS: S1 and S2 normal with no audible murmur, regular rhythm. No extra heart sounds ABDOMEN: Obese abdomen, no hepatosplenomegaly, active bowel sounds, no guarding or rigidity. SPINE: No scoliosis or deformity SKIN: No rashes CENTRAL NERVOUS SYSTEM: No focal deficits, tone is normal in all 4 extremities. EXTREMITIES: There is no peripheral edema, clubbing, or cyanosis. Peripheral pulses are intact. - Labs CBC & Chem 7: 10/23/23 04:35 10/23/23 04:35 Labs: Abnormal Lab Results - Last 24 Hours (Table) 10/25/23 10/25/23 10/26/23 Range/Units 16:20 20:15 05:54 POC Glucose (mg/dL) 130 H 179 H 116 H (70-110) mg/dL 10/26/23 Range/Units 11:13 POC Glucose (mg/dL) 199 H (70-110) mg/dL Microbiology - Last 24 Hours (Table) 10/21/23 20:30 Blood Culture - Preliminary Blood Assessment and Plan Assessment: Acute COPD exacerbation, chest x-ray does not show any acute cardiopulmonary process. Procalcitonin 0.06. Negative for influenza, RSV, COVID Acute hypoxemic respiratory failure, currently on 4 L/min nasal cannula, secondary to above History of severe obstructive sleep apnea, maintained on CPAP with pressure of 16 cm of H2O. Morbid obesity, with a BMI of 46.8 kg/m Hypertension Hyperlipidemia History of seasonal allergies Former tobacco smoker Plan: The patient was seen and evaluated Labs and medications reviewed Continued on prednisone taper Continue DuoNeb inhalations, Symbicort Titrate down the FiO2 as tolerated Evaluate for home oxygen Cleared for discharge from the pulmonary standpoint Follow-up in our office in 1 week I have personally seen and examined the patient, performed the documentation and the assessment and plan as written. Number of minutes spent on the visit: 10.
--- NOTE | 2023-10-26 15:55 | P.DS ---
Providers Date of admission: 10/21/23 23:22 Expected date of discharge: 10/26/23 Attending physician: Magalie Altamirano MD Consults: 10/21/23 23:22 Consult Physician Routine Consulting Provider: Herbert Pantoja Consult Reason/Comments: copd,tracheobronchitis Do you want consulting provider notified?: Yes Primary care physician: Major Yi [facility] Hospital Course: 72 year old F with PMH of COPD, Anxiety, HLD, former smoker presents to the ED for SOB/wheezing. She does report positive sick contact with her who had upper respiratory infection symptoms last week. He was also having some nasal congestion and runny nose which she thought due to seasonal allergies. over the past week, In the ED she underwent extensive evaluation. BP 194/80, RR 26, HR 80, T 99.6F, 92% on RA. She was as low as 89% on 4L NC in the ED. CBC, Coag panel, CMP performed significant for BUN 21, glu 136. Lactic acid 1. Mag 1.9. Troponin < 0.012, EKG junctional rhythm, incomplete RBBB with no ST elevation. BNP 739. COVID, Flu, RSV negative. D-Dimer 1.16. CXR trace left pleural effusion. CTA chest no PE. Patient was admitted for COPD exacerbation. Pulmonary is consulted. 10/22 Patient was seen and examined. Improved breathing but still short of breath. Has nebulizer at home. 93% on 6L NC. Pro-kem is 0.06. CBC WBC 10.12 with neutrophilia. BMP BUN/Cr 26.11, glu 165. 10/23 Patient was seen and examined. Breathing is stable. Currently 93% on 4L NC. 10/24 Patient was seen and examined. Breathing is stable. Reports shortness of breath with little activity. No other complaints. Currently 94% on 4L NC. 10/25 Patient was seen and examined. Pulmonary has cleared the patient for discharge. Patient passed home O2 eval. Will discharge home on DuoNeb, Symbicort and slow Prednisone taper. Advised to follow up with PCP within 1-2 days and Pulmonary within 1 week of discharge. General: non toxic, no distress, appears at stated age Derm: warm, dry Head: atraumatic, normocephalic, symmetric Eyes: EOMI, no lid lag, anicteric sclera Mouth: no lip lesion, mucus membranes moist Cardiovascular: S1S2 reg, no murmur Lungs: Decreased BS bilateral, no rhonchi, no rales , no accessory muscle use Ext: no gross muscle atrophy, no edema, no contractures Neuro: no focal neuro deficits Psych: Alert, oriented, appropriate affect Discharge Diagnosis: Acute hypoxic respiratory failure COPD exacerbation: DuoNeb QID scheduled and Q2H PRN for SOB/wheezing. Solumedrol 60 mg IV Q6H. Symbicort 2 INH BID. Azithromycin 500 mg PO QD x 3 days for acute bronchitis.Telemetry monitoring. Attempt to wean oxygen. Pulmonary on board. Anxiety: Paxil 20 mg PO QHS. Xanax 0.25 mg PO BID PRN. Dyslipidemia: Lipitor 20 mg PO Q2D. This complex discharge took 35 minutes to complete. Patient Condition at Discharge: Stable Plan - Discharge Summary Discharge Rx Participant: No New Discharge Prescriptions: New predniSONE See Taper PO DIRECTED #30 tab Pantoprazole [Protonix] 40 mg PO AC-BRKFST #30 tab Ipratropium-Albuterol Nebulize [Duoneb 0.5 mg-3 mg/3 ml Soln] 3 ml INHALATION RT-QID PRN #120 each PRN Reason: Shortness Of Breath Budesonide-Formot 160-4.5 Mcg [Symbicort 160-4.5 Mcg Inhaler] 2 puff INHALATION RT-BID #1 each Continue Simvastatin [Zocor] 40 mg PO Q2D@2100 PARoxetine [Paxil] 20 mg PO HS Naproxen Sodium [Aleve] 220 mg PO DAILY Cholecalciferol [Vitamin D3 (25 Mcg = 1000 Iu)] 50 mcg PO HS Melatonin 3 mg PO HS PRN PRN Reason: Insomnia Albuterol Inhaler [Ventolin Hfa Inhaler] 2 puff INHALATION RT-QID PRN PRN Reason: Shortness Of Breath Discharge Medication List Naproxen Sodium [Aleve] 220 mg PO DAILY 05/06/18 [History] PARoxetine [Paxil] 20 mg PO HS 05/06/18 [History] Simvastatin [Zocor] 40 mg PO Q2D@2100 05/06/18 [History] Cholecalciferol [Vitamin D3 (25 Mcg = 1000 Iu)] 50 mcg PO HS 03/27/19 [History] Albuterol Inhaler [Ventolin Hfa Inhaler] 2 puff INHALATION RT-QID PRN 10/21/23 [History] Melatonin 3 mg PO HS PRN 10/21/23 [History] Budesonide-Formot 160-4.5 Mcg [Symbicort 160-4.5 Mcg Inhaler] 2 puff INHALATION RT-BID #1 each 10/26/23 [Rx] Ipratropium-Albuterol Nebulize [Duoneb 0.5 mg-3 mg/3 ml Soln] 3 ml INHALATION RT-QID PRN #120 each 10/26/23 [Rx] Pantoprazole [Protonix] 40 mg PO AC-BRKFST #30 tab 10/26/23 [Rx] predniSONE See Taper PO DIRECTED #30 tab 10/26/23 [Rx] Follow up Appointment(s)/Referral(s): Major Nazario MD [Primary Care Provider] - 10/30/23 12:30 pm Brittani Lieberman MD [STAFF PHYSICIAN] - 11/16/23 10:00 am Discharge Disposition: HOME SELF-CARE
[2023-10-26 16:24] VITALS: PULSE 85
== END 2023-10-26 16:58 | disposition home or self-care (01) | DRG 190 ==
LOC: EC 19:09 → 4SSUR 23:22
PROVIDERS: ADMIT Internal Medicine; ATTEND Internal Medicine
DX: J44.1 Chronic obstructive pulmonary disease with (acute) exacerbation (principal); J96.01 Acute respiratory failure with hypoxia; Z68.42 Body mass index [BMI] 45.0-49.9, adult; E66.01 Morbid (severe) obesity due to excess calories; E78.5 Hyperlipidemia, unspecified; F17.210 Nicotine dependence, cigarettes, uncomplicated; J20.9 Acute bronchitis, unspecified; I10 Essential (primary) hypertension; G47.33 Obstructive sleep apnea (adult) (pediatric); J30.2 Other seasonal allergic rhinitis; F41.9 Anxiety disorder, unspecified; I45.10 Unspecified right bundle-branch block; K21.9 Gastro-esophageal reflux disease without esophagitis; Z96.653 Presence of artificial knee joint, bilateral
CPT/HCPCS: 36415; 71046; 71275; 80048; 80053; 83605; 83735; 83880; 84145; 84484; 85025; 85379; 85610; 85730; 87040; 87636; 93005; 94640; 94660; 94760; 96365; 96367; 96375; 99291

== ENCOUNTER → 2024-01-07 | Outpatient (CLI) | payer MEDICARE ==
--- NOTE | 2024-01-09 13:20 | MM ---
Reason for Exam: Screening (asymptomatic). Last screening mammogram was performed 12 month(s) ago. Patient History: Menarche at age 10. First Full-Term at age 18. Postmenopausal. 2005, Benign Cyst Aspiration on the right side. 1989, Excisional Biopsy on the Left side. 05/14/2018, Benign Core Biopsy on the right side. 05/14/2018, Benign Core Biopsy on the right side. 05/14/2018, Benign Core Biopsy on the right side. Risk Values: Peggy 5 year model risk: 2.4%. NCI Lifetime model risk: 5.1%. Prior Study Comparison: 12/27/2020 Bilateral Screening Mammogram, [facility]. 12/29/2021 Bilateral MG 3D screening mammo w/cad, [facility]. 01/01/2023 Bilateral MG 3D screening mammo w/cad, [facility]. Tissue Density: The breasts are heterogeneously dense, which may obscure small masses. Findings: Analyzed By CAD. Right breast biopsy clip. Right breast: There is no suspicious group of microcalcifications or new suspicious mass. Benign-appearing calcifications right breast. Left breast: There is no suspicious group of microcalcifications or new suspicious mass. Benign-appearing calcifications left breast. Overall Assessment: Negative, BI-RAD 1 Management: Screening Mammogram of both breasts in [address] [facility] will attempt to contact patient to return for supplemental views and ultrasound if indicated. Patient should continue monthly self-breast exams. A clinical breast exam by your physician is recommended on an annual basis. This exam should not preclude additional follow-up of suspicious palpable abnormalities. Note on Peggy scores and lifetime risk: 1. A Peggy score greater than 3% is considered moderate risk. If this is the case, consider specialist referral to assess eligibility for a risk reducing agent. 2. If overall lifetime risk for the development of breast cancer is 20% or higher, the patient may qualify for future screening with alternating mammogram and breast MRI. Electronically signed and approved by: Jerson Gilbert DO
== END | disposition home or self-care (01) ==
LOC: RADMAMWWP 08:55
PROVIDERS: ATTEND Surgery
DX: Z12.31 Encounter for screening mammogram for malignant neoplasm of breast (principal); Z78.0 Asymptomatic menopausal state
CPT/HCPCS: 77063; 77067

== ENCOUNTER → 2024-01-18 | Outpatient (CLI) | payer MEDICARE ==
--- NOTE | 2024-01-18 13:01 | P.PN ---
Subjective Progress Note Date: 01/18/24 Principal diagnosis: left breast microcalcifications of concern Fibrocystic breast changes/status post right breast abscess 2019 not recurrent, abnormal left breast mammogram microcalcifications Gauri is a 73-year-old white female status post incision and drainage of a large abscess in the right breast on [id number]. She had a bilateral mammogram on 01-18-24 which was benign BIRADS 1, however with review personally with Dr. Retana there are any area of calcifications in the left breast for which stereotactic core biopsy has been recommended. She has not had any recurrence of the abscess. She is not complaining of any lumps masses or nodules in the breast. She is not complaining of any nipple discharge. She is not complaining of any fever or chills. She is not complaining of any erythema or drainage from the breast. caffiene: 2 cups/day nicotine: stopped 8 years ago chocolate: rare hormones: none; BCP: never used Family History: father: pancreatic sister: cervical Hormonal history: menarche: 10 breast fed: no, age at first : 18 menopause: 46 BCP: none hormones: none Surgical history: 1. Tonsillectomy 2. Appendectomy 3. Bilateral knee replacement 4. Cataract surgery 5. I&D right breast abscess Medical history: 1.HTN 2. back pain/ arthritis 3. sleep apnea 4. sciatic pain Social: smoke:stopped 5 years ago alcohol: Occasional Marijuana: Negative - Constitutional Constitutional: Denies chills, Denies fever - EENT Comment: Cataract surgery Ears: deny: decreased hearing, tinnitus Ears, nose, mouth and throat: Reports sinus pressure, Denies headache, Denies sore throat - Breasts Breasts: bilateral: as per HPI - Cardiovascular Cardiovascular: Reports high blood pressure - Respiratory Comment: former smoker Respiratory: Reports cough - Gastrointestinal Gastrointestinal: Denies abdominal pain, Denies diarrhea, Denies nausea, Denies vomiting - Genitourinary (Female) Genitourinary: Denies dysuria, Denies hematuria - Menstruation Menstruation: Reports postmenopausal - Musculoskeletal Comment: back pain - Integumentary Integumentary: Denies pruritus, Denies rash - Neurological Neurological: Denies numbness, Denies weakness - Psychiatric Psychiatric: Reports anxiety, Reports depression - Endocrine Endocrine: Reports weight change - Hematologic/Lymphatic Comment: none - Allergic/Immunologic Allergic/Immunologic: Reports seasonal allergies Objective - Constitutional General appearance: Present: cooperative - EENT Eyes: Present: EOMI ENT: Present: hearing grossly normal - Neck Neck: Present: normal ROM - Respiratory Respiratory: bilateral: CTA - Cardiovascular Rhythm: regular Heart sounds: normal: S1, S2 - Integumentary Integumentary: Present: normal turgor - Psychiatric Psychiatric: Present: A&O x's 3, appropriate affect, intact judgment & insight - Additional findings Additional findings: Breast exam: BRA: 52DDD Inspection: Bilateral grade 3 ptosis Palpation: Right breast: Multi-positional exam fibrocystic changes no discrete dominant masses or nodules of concern; there is some distortion of the right breast where she underwent a drainage of an abscess in the remote past Right axilla: No adenopathy of concern Left breast: No dominant masses or nodules of concern Left axilla: No adenopathy of concern Assessment and Plan Assessment: Impression: Fibrocystic breast changes Macromastia Back pain Hypertension Shortness of breath with activity bilateral mammogram 01-07-[address] Leal, recommend left breast stero- biopsy Plan: left breast stero biopsy risk and benefits of stereo biopsy discussed with the patient. Risks include but are not limited to bleeding, infection, reaction to the anesthetic. If the area of concern were not to be adequately sampled of the specimen were to be discordant and further tissue acquisition may be necessary. The patient understands and wishes to proceed. CC: Dr. Nazario
[2024-01-18 13:28] VITALS: BP 147/81; PULSE 72; RESP 18; TEMP 97.3
== END ==
LOC: WWCWWP 11:24
PROVIDERS: ATTEND Surgery
DX: R92.0 Mammographic microcalcification found on diagnostic imaging of breast (principal); N60.11 Diffuse cystic mastopathy of right breast; N62 Hypertrophy of breast; M54.9 Dorsalgia, unspecified; I10 Essential (primary) hypertension; R06.02 Shortness of breath; Z87.891 Personal history of nicotine dependence; Z98.890 Other specified postprocedural states; Z88.1 Allergy status to other antibiotic agents; Z88.8 Allergy status to other drugs, medicaments and biological substances; Z79.899 Other long term (current) drug therapy

== ENCOUNTER → 2024-01-31 | Day surgery (SDC) | payer MEDICARE ==
[2024-01-31] MEDS: ALPRAZolam 0.25 MG TAB PO PRN (07:33)
[2024-01-31 07:40] VITALS: RESP 16
--- NOTE | 2024-01-31 08:41 | P.BCAON ---
Date of Procedure: 01/31/24 Preoperative Diagnosis: Microcalcifications of concern left breast central area Postoperative Diagnosis: Same Procedure(s) Performed: Left breast stereotactic core biopsy Anesthesia: local Surgeon: Nadiya Phillips Pathology: other (Breast tissue/radiograph of specimen reveals microcalcifications of concern) Condition: stable Disposition: same day Indications for Procedure: Microcalcifications of concern left breast central location Operative Findings: Radiograph of specimen reveals microcalcifications of concern Description of Procedure: Following informed consent the patient was brought to the stereotactic core biopsy room. She was positioned in the upright chair. A tank refinisher film was obtained of the left breast from the cc position. The lesion of concern was identified. The lesion was targeted. The breast was prepped using chlorhexid ine. 20 cc of 1% lidocaine was used to anesthetize the area of concern. A 9 gauge vacuum-assisted core rotating biopsy needle was driven to the correct coordinates. A prefire film was obtained. The needle was noted to be in the correct location. The needle was fired. A post fire film was obtained the needle was noted to be in the correct location. 15 core biopsy specimens were obtained. Radiograph of the specimens revealed the microcalcifications of concern had been adequately sampled. A secure ciro Top-Hat clip was placed. The clip was noted to be in the correct location. The patient tolerated the procedure in stable condition. The patient will follow-up with Dr. Hernandez. The specimen is sent to pathology.
[2024-01-31 08:56] VITALS: BP 135/73; PULSE 77; TEMP 98.1
--- NOTE | 2024-02-26 14:17 | MM ---
Date of Procedure: 01/31/24 Preoperative Diagnosis: Microcalcifications of concern left breast central area Postoperative Diagnosis: Same Procedure(s) Performed: Left breast stereotactic core biopsy Anesthesia: local Surgeon: Nadiya Phillips Pathology: other (Breast tissue/radiograph of specimen reveals microcalcifications of concern) Condition: stable Disposition: same day Indications for Procedure: Microcalcifications of concern left breast central location Operative Findings: Radiograph of specimen reveals microcalcifications of concern Description of Procedure: Following informed consent the patient was brought to the stereotactic core biopsy room. She was positioned in the upright chair. A dressage instructor film was obtained of the left breast from the cc position. The lesion of concern was identified. The lesion was targeted. The breast was prepped using chlorhexidine. 20 cc of 1% lidocaine was used to anesthetize the area of concern. A 9 gauge vacuum-assisted core rotating biopsy needle was driven to the correct coordinates. A prefire film was obtained. The needle was noted to be in the correct location. The needle was fired. A post fire film was obtained the needle was noted to be in the correct location. 15 core biopsy specimens were obtained. Radiograph of the specimens revealed the microcalcifications of concern had been adequately sampled. A secure ciro Top- Hat clip was placed. The clip was noted to be in the correct location. The patient tolerated the procedure in stable condition. The patient will follow-up with Dr. Hernandez. The specimen is sent to pathology. [facility]
== END ==
LOC: RADMAMWWP 07:20
PROVIDERS: ATTEND Surgery
DX: D24.2 Benign neoplasm of left breast (principal); N62 Hypertrophy of breast; N60.22 Fibroadenosis of left breast; J44.9 Chronic obstructive pulmonary disease, unspecified; Z88.1 Allergy status to other antibiotic agents; Z88.6 Allergy status to analgesic agent; Z88.8 Allergy status to other drugs, medicaments and biological substances; Z87.891 Personal history of nicotine dependence; Z79.1 Long term (current) use of non-steroidal anti-inflammatories (NSAID); Z79.899 Other long term (current) drug therapy; Z79.51 Long term (current) use of inhaled steroids
CPT/HCPCS: 19081; A4648; J2001

== ENCOUNTER → 2024-02-14 | Outpatient (CLI) | payer MEDICARE ==
--- NOTE | 2024-03-20 10:37 | WWPN ---
[facility] - PROGRESS NOTE The patient is status post stereotactic core biopsy of the left breast on 01/31/2024. Pathology is a verbal report from Dr. Denise and the patient is noted to have present ductal atypia bordering on DCIS versus an invasive component as well as florid lobular atypia/lobular carcinoma in situ. He has sent the specimen out. The patient herself has marked bilateral macromastia and is requesting bilateral mastectomies be performed. At this time, examination reveals that the biopsy site is clean and dry and healing well. We will wait and see what her final pathology reveals. The patient, however, has expressed the desire for bilateral mastectomy. We would need to obtain clearance from Dr. Nazario; Dr. Sargent, Cardiology; and Dr. Lieberman. PLAN: Await final pathology. Follow up in 3 weeks after final pathology will hopefully be available. The patient will follow up sooner any questions or concerns. MMODL / IJN: [id number] /
== END ==
LOC: WWCWWP 17:39
PROVIDERS: ATTEND Surgery

== ENCOUNTER → 2024-03-13 | Outpatient (CLI) | payer MEDICARE ==
--- NOTE | 2024-03-13 10:54 | XR ---
EXAMINATION TYPE: XR chest 2V DATE OF EXAM: 03/13/2024 COMPARISON: 10/21/2023 HISTORY: Shortness of breath TECHNIQUE: Frontal and lateral views of the chest are obtained. FINDINGS: Scattered senescent parenchymal changes noted. Hyperinflation compatible with COPD. No evidence for infiltrate. No evidence for atelectasis. Heart size is stable. Mediastinal structures are stable and grossly unremarkable. No evidence for hilar prominence. Degenerative changes dorsal spine. IMPRESSION: 1. No evidence for acute pulmonary disease.
== END | disposition home or self-care (01) ==
LOC: RADXRMAIN 09:55
PROVIDERS: ATTEND Nurse Practitioner Adult Health
DX: Z01.818 Encounter for other preprocedural examination
CPT/HCPCS: 71046

== ENCOUNTER → 2024-03-13 | Outpatient (CLI) | payer MEDICARE ==
[2024-03-13 09:25] VITALS: BP 162/80; PULSE 78; RESP 19; TEMP 98.9
--- NOTE | 2024-03-13 09:41 | P.PN ---
Subjective Progress Note Date: 03/13/24 Principal diagnosis: left breast DCIS 03-13-24 Principal diagnosis: DCIS left breast Fibrocystic breast changes/status post right breast abscess 2019 not recurrent, abnormal left breast mammogram microcalcifications + DCIS Gauri is a 73-year-old white female status post incision and drainage of a large abscess in the right breast on [id number]. She had a bilateral mammogram on 01-18-24 which was benign BIRADS 1, however with review personally with Dr. Retana there are any area of calcifications in the left breast for which stereotactic core biopsy has been recommended. She has not had any recurrence of the abscess. She is not complaining of any lumps masses or nodules in the breast. She is not complaining of any nipple discharge. She is not complaining of any fever or chills. She is not complaining of any erythema or drainage from the breast. She underwent a stero core biopsy on 01-31-24 of the left breast. The pathology was DCIS. Her case was presented at tumor board on 03-11-24. She has elected for a bilateral mastectomy. She does want to have reconstruction. After discussion she wishes to have a sentinal node biopsy as well. caffiene: 2 cups/day nicotine: stopped 8 years ago chocolate: rare hormones: none; BCP: never used Family History: father: pancreatic sister: cervical Hormonal history: menarche: 10 breast fed: no, age at first : 18 menopause: 46 BCP: none hormones: none Surgical history: 1. Tonsillectomy 2. Appendectomy 3. Bilateral knee replacement 4. Cataract surgery 5. I&D right breast abscess Medical history: 1.HTN 2. back pain/ arthritis 3. sleep apnea 4. sciatic pain 5. COPD Social: smoke:stopped 5 years ago alcohol: Occasional Marijuana: Negative - Constitutional Constitutional: Denies chills, Denies fever - EENT Comment: Cataract surgery Ears: deny: decreased hearing, tinnitus Ears, nose, mouth and throat: Reports sinus pressure, Denies headache, Denies sore throat - Breasts Breasts: bilateral: as per HPI - Cardiovascular Cardiovascular: Reports high blood pressure - Respiratory Comment: former smoker Respiratory: Reports cough - Gastrointestinal Gastrointestinal: Denies abdominal pain, Denies diarrhea, Denies nausea, Denies vomiting - Genitourinary (Female) Genitourinary: Denies dysuria, Denies hematuria - Menstruation Menstruation: Reports postmenopausal - Musculoskeletal Comment: back pain - Integumentary Integumentary: Denies pruritus, Denies rash - Neurological Neurological: Denies numbness, Denies weakness - Psychiatric Psychiatric: Reports anxiety, Reports depression - Endocrine Endocrine: Reports weight change - Hematologic/Lymphatic Comment: none - Allergic/Immunologic Allergic/Immunologic: Reports seasonal allergies Objective - Vital Signs Vital signs: Vital Signs Temp 98.9 F 03/13/24 09:22 Pulse 78 03/13/24 09:22 Resp 19 03/13/24 09:22 BP 162/80 03/13/24 09:22 Pulse Ox 96 03/13/24 09:22 FiO2 Intake & Output 03/12/24 03/13/24 03/13/24 18:59 06:59 18:59 Weight 145.15 kg - Constitutional General appearance: Present: cooperative - EENT Eyes: Present: EOMI ENT: Present: hearing grossly normal - Neck Neck: Present: normal ROM - Respiratory Respiratory: bilateral: CTA - Cardiovascular Heart sounds: normal: S1, S2 - Integumentary Integumentary: Present: normal turgor - Musculoskeletal Musculoskeletal: Present: gait normal - Psychiatric Psychiatric: Present: A&O x's 3, appropriate affect, intact judgment & insight - Additional findings Additional findings: Breast exam: BRA: 52DDD Inspection: Bilateral grade 3 ptosis Palpation: Right breast: Multi-positional exam fibrocystic changes no discrete dominant masses or nodules of concern; there is some distortion of the right breast where she underwent a drainage of an abscess in the remote past Right axilla: No adenopathy of concern Left breast: No dominant masses or nodules of concern Left axilla: No adenopathy of concern Assessment and Plan Assessment: Impression: Fibrocystic breast changes Macromastia Back pain Hypertension Shortness of breath with activity bilateral mammogram 01-07-[address] Leal, recommend left breast stero- biopsy Plan: Bilateral mastectomy left sentinal node injection, left sentinal node biopsy possible left axillary node dissection genetic testing medical clearance Dr. Nazario Risk and benefits of the procedure discussed with the patient and she wishes to proceed.
== END ==
LOC: WWCWWP 09:15
PROVIDERS: ATTEND Surgery
DX: R92.8 Other abnormal and inconclusive findings on diagnostic imaging of breast (principal); R92.0 Mammographic microcalcification found on diagnostic imaging of breast; R92.312 Mammographic fatty tissue density, left breast; D05.12 Intraductal carcinoma in situ of left breast; N62 Hypertrophy of breast; M54.9 Dorsalgia, unspecified; I10 Essential (primary) hypertension; R06.02 Shortness of breath; N60.11 Diffuse cystic mastopathy of right breast; Z87.891 Personal history of nicotine dependence; Z88.1 Allergy status to other antibiotic agents; Z88.8 Allergy status to other drugs, medicaments and biological substances; Z79.899 Other long term (current) drug therapy

== ENCOUNTER 2024-03-25 07:45 | Day surgery (SDC) | payer MEDICARE ==
[~2024-03-25 07:45] MED LIST changes: -DEXAMETHASONE SOD PHOSPHATE 10 MG/ML 1 ML VIAL IV ONE; -HEPARIN SODIUM,PORCINE 5,000 UNIT/ML 1 ML VIAL SQ ONE; -HYDROmorphone 0.5 MG/0.5 ML SYRINGE IVP PRN; -LACTATED RINGERS 1,000 ML IV SCH; -LIDOCAINE 1% 20 ML VIAL (10MG/ML) FOR IV START INTRADERMA PRN; -ONDANSETRON 4 MG/2 ML VIAL IVP ONE; -Pre Op ABX Message 1 EACH MISC MISCELLANE ONE; -SCOPOLAMINE 1.5MG/72HR PATCH TRANSDERM ONE; +fentaNYL (PF) 50 MCG/ML 2 ML AMP IV PRN
[2024-03-25] MEDS: IV FLUID CONTINUATION 1,000 ML IV ONE (08:56)
[2024-03-25] MEDS: ACETAMINOPHEN TAB 500 MG TAB PO PRN (08:58)
[2024-03-25] MEDS: ONDANSETRON 4 MG/2 ML VIAL IVP ONE (08:58)
[2024-03-25] MEDS: DEXAMETHASONE SOD PHOSPHATE 4 MG/ML 1 ML VIAL IVP STA (08:58)
[2024-03-25] MEDS: HEPARIN SODIUM,PORCINE 5,000 UNIT/ML 1 ML VIAL SQ PRN (08:59)
--- NOTE | 2024-03-25 09:32 | P.NAPBC ---
NAPBC Queries - NAPBC Queries Was patient's case review presented at [facility] tumor board? If no, comment.: Yes Was patient's pathology reviewed at [facility]? If no, comment.: Yes Was breast conservation surgery offered? If no, comment.: Yes Was sentinel node biopsy offered? If no, comment.: Yes Was diagnosis confirmed by percutaneous core biopsy? If no, comment.: Yes Is patient mastectomy patient?: Yes Was a preop referral to reconstructive surgeon offered?: Yes Clinical Stage: DCIS left breast
[2024-03-25] MEDS: MIDAZOLAM 2 MG/2 ML VIAL IV ONE (09:38)
[2024-03-25] MEDS ORDERED: PROPOFOL 10 MG/ML 20 ML VIAL IV ONE (09:50)
[2024-03-25] MEDS ORDERED: NEOSTIGMINE 1 MG/ML 10 ML VIAL ONE (09:50)
[2024-03-25] MEDS ORDERED: DEXAMETHASONE SOD PHOSPHATE 4 MG/ML 1 ML VIAL ONE (09:50)
[2024-03-25] MEDS ORDERED: ROPIVACAINE 5 MG/ML 30 ML VIAL ONE (09:50)
[2024-03-25] MEDS ORDERED: GLYCOPYRROLATE 0.2 MG/ML 2 ML VIAL ONE (09:50)
[2024-03-25] MEDS ORDERED: SODIUM CHLORIDE 0.9% (PF) 10 ML VIAL ONE (09:50)
[2024-03-25] MEDS ORDERED: ROCURONIUM 10 MG/ML (5 ML VIAL) IV ONE (09:50)
[2024-03-25] MEDS ORDERED: LIDOCAINE 1% INJ 10MG/ML (20 ML MDV) ONE (09:50)
[2024-03-25] MEDS ORDERED: fentaNYL (PF) 50 MCG/ML 2 ML AMP ONE (09:50)
[2024-03-25] MEDS ORDERED: HYDROmorphone (PF) 1 MG/ML ONE (09:50)
[2024-03-25] MEDS ORDERED: SUCCINYLCHOLINE CHLORIDE 200 MG/10 ML VIAL IV ONE (09:50)
[2024-03-25] MEDS ORDERED: diphenhydrAMINE 50 MG/ML 1 ML VIAL ONE (09:50)
--- NOTE | 2024-03-25 09:52 | P.ANPRN ---
Procedure Note - Anesthesia - Nerve Block Performed Bilateral Erector Spinae Single Time Out Performed: Yes ([id number]) Date of Procedure: 03/25/24 Procedure Start Time: :37 Procedure Stop Time: :45 Location of Patient: PreOp Indication: Acute Post-Operative Pain, Requested by Surgeon Sedation Type: Sedate with meaningful contact maintained Preparation: Sterile Prep, Sterile Dressing Position: Sitting Catheter: None Needle Types: Pajunk Needle Gauge: 21 Ultrasound used to visualize needle placement: Yes Ultrasound used to observe medication spread: Yes Injectate: 0.5% Ropivacaine (see comment for volume) (21 mL of block solution on each side. The block solution containing 10 mL of preservative-free 0.5% ropivacaine mixed with 10 mL of preservative-free normal saline, and 4 mg of dexamethasone.) Blood Aspirated: No Pain Paresthesia on Injection Noted: No Resistance on Injection: Normal Image Stored and Saved: Yes Events: Uneventful and Well Tolerated
[2024-03-25] MEDS: ceFAZolin 3 GM in SODIUM CHLORIDE 0.9% 100 ML IVPB PRN (09:54)
[2024-03-25] MEDS: METHYLENE BLUE 50 MG/10 ML AMPUL MISCELLANE ONE (10:54)
--- NOTE | 2024-03-25 11:04 | NM ---
EXAMINATION TYPE: NM sentinel node injection DATE OF EXAM: 03/25/2024 COMPARISON: NONE INDICATION: Abnormal mammogram. Informed consent was obtained. A timeout was performed. The area around the left nipple was cleansed with alcohol. In a single dose, a total of 538 uCi Shari hnetium 99m Tilmanocept was injected. The patient tolerated the procedure very well. IMPRESSION: 1. Successful injection for sentinel node evaluation. [facility], , 03/25/2024 11:02 AM
[2024-03-25] MEDS: LACTATED RINGERS 1,000 ML IV ONE (12:53)
[2024-03-25] MEDS: LIDOCAINE 1% INJ 10MG/ML (20 ML MDV) SQ ONE (14:17)
[2024-03-25] MEDS ORDERED: ACETAMINOPHEN TAB 325 MG TAB PO PRN (14:22)
[2024-03-25] MEDS ORDERED: HYDROmorphone 1 MG/ML 1 ML SYRINGE IVP PRN (14:22)
[2024-03-25] MEDS ORDERED: NALOXONE 0.4 MG/ML 1 ML VIAL IV PRN (14:22)
[2024-03-25] MEDS ORDERED: ONDANSETRON 4 MG/2 ML VIAL IVP PRN (14:22)
[2024-03-25] MEDS ORDERED: CALCIUM CARBONATE 500 MG CHEWABLE PO PRN (14:22)
--- NOTE | 2024-03-25 14:22 | P.BCAON ---
Date of Procedure: 03/25/24 Preoperative Diagnosis: Left breast DCIS, bilateral macromastia Postoperative Diagnosis: Same Procedure(s) Performed: Left breast mastectomy, left sentinel node mapping with methylene blue, left deep axillary node resection, right mastectomy Anesthesia: JOHN PAUL Surgeon: Nadiya Phillips Estimated Blood Loss (ml): 50 IV fluids (ml): 1,500 Urine output (ml): 300 Pathology: other (Bilateral breast, left deep axillary lymph node) Condition: Indications for Procedure: Left breast DCIS, bilateral macromastia symptomatic Operative Findings: Fibrofatty breast tissue bilateral/blue radioactive lymph node identified in the left axilla Description of Procedure: The patient in the preoperative area had periareolar injection of radiotracer in the left periareolar region. She was then brought to the operative suite. Following induction of anesthesia the neoprobe was used to interrogate the left axilla. No radioactivity was noted at this site. Therefore 10 cc of half percent methylene blue was injected into the periareolar region and the area was massaged for 3 minutes. Both breast in the left axilla were prepped and draped in a sterile fashion. The left side was approached initially. Using skin markings which had been made in the preoperative area superior and inferior skin flaps were developed. These were carried down to the pectoralis muscle. The breast was dissected from medial to lateral being careful to maintain hemostasis using the electrocautery device, harmonic scalpel, and suture ligation of vessels as needed. After the breast was dissected to the area of the axilla it was transected. A's short suture was placed superiorly and a long suture was placed laterally. The area of the axilla was approached. Using the neoprobe there was an area of radioactivity identified and a blue lymph node. This was resected. The 10- second count on the lymph node was 2472. The background 10-second count in the axilla was 8. No other palpable or radioactive lymph nodes in the left axilla were identified. The wound was well irrigated. After we are sure that hemostasis was attained 2 SHELBY drains #10 were placed. Surgicel in powder form was placed. The deep tissues were closed using 3-0 Vicryl suture interrupted. A running 3-0 Vicryl suture was placed. A 4-0 Monocryl skin subcuticular suture was placed. The drains were secured using 3-0 nylon suture. After the left side was dissected and performed the gowns instruments and gloves were changed. In the right side was approached. Superior and inferior skin flaps were developed and carried down to the pecto ralis muscle. Dissection was performed from medial to lateral being careful to maintain hemostasis using the electrocautery device as well as the harmonic scalpel and suture ligation as needed. The specimen was removed from the chest wall again using the electrocautery device as well as the harmonic scalpel. The specimen was marked for orientation with a short suture being superior and a long suture being lateral. The wound was well irrigated. Surgicel in powder form was placed. 2 SHELBY drains were placed. They were secured using 3-0 nylon suture. The subcutaneous tissue was closed using 3-0 Vicryl suture with interrupted sutures. A 3-0 running Vicryl suture was then placed. This was followed by a 4-0 Monocryl subcuticular suture. 20 cc of 1% lidocaine were injected into each incision on the chest wall, for a total of 40 cc of 1% lidocaine. Certain cold glue was then placed. All instrument and sponge counts were correct at the end of the case. The patient tolerated the procedure in stable condition. - Sentinal Node Biopsy Operation performed with curative intent: Yes Tracer(s) used in upfront surgery (non-neoadjuvant): dye, radioactive tracer All nodes present at end of dye-filled channel removed: Yes All significantly radioactive nodes were removed: Yes All palpably suspicious nodes were removed: Yes
[2024-03-25] MEDS: DEXTROSE 5%-0.45% NACL 1,000 ML IV SCH (18:04)
[2024-03-25] MEDS: LACTATED RINGERS 1,000 ML IV SCH (18:38)
--- NOTE | 2024-03-25 20:55 | P.CNPUL ---
History of Present Illness Consult date: 03/25/24 Reason for consult: asthma, COPD, obstructive sleep apnea History of present illness: This is a 73-year-old female patient who was diagnosed having breast cancer and the patient underwent a left and right breast mastectomy, left sentinel lymph n ode mapping, left axillar lymph node dissection. This was done under general anesthesia. Estimated blood loss was 50 cc. The patient has bilateral SHELBY drains and output is minimal at this point in time. She is awake and alert and communicating. She is on room air oxygen. The patient is currently postop day #0. The patient is known to have COPD/asthma. She has maintained on Symbicort on outpatient basis. She is also known to have severe obstructive sleep apnea with an AHI of 109 and she has been maintained on a CPAP pressure of 16 cm of water. Her pulmonary function test was done preoperatively showed an FEV1 of 50% of predicted and a FEV1/FVC ratio of 81 with a diffusion capacity of 76% predicted and a total lung capacity of 103% of predicted. She is also known to have hypertension hyperlipidemia and she is obese. She is currently, comfortable on 2 room air oxygen. Hemodynamically stable and the patient's breathing is unlabored. Review of Systems Constitutional: Reports as per HPI Eyes: denies as per HPI, denies blurred vision, denies bulging eye, denies decreased vision, denies diplopia, denies discharge, denies dry eye, denies irritation, denies itching, denies pain, denies photophobia, denies loss of peripheral vision, denies loss of vision, denies tunnel vision/blind spots Ears: deny: decreased hearing, ear discharge, earache, tinnitus Ears, nose, mouth and throat: Reports as per HPI Breasts: absent: as per HPI, change in shape, gynecomastia, masses, nipple discharge, pain, skin changes, swelling Cardiovascular: Reports shortness of breath Respiratory: Reports sleep apnea Gastrointestinal: Reports as per HPI Genitourinary: Reports as per HPI Menstruation: Reports as per HPI Musculoskeletal: Reports as per HPI Musculoskeletal: absent: ankle pain, ankle stiffness, ankle swelling, as per HPI, elbow pain, elbow stiffness, elbow swelling, foot pain, foot stiffness, foot swelling, hand pain, hand stiffness, hand swelling, hip pain, hip stiffness, hip swelling, knee pain, knee stiffness, knee swelling, shoulder pain, shoulder stiffness, shoulder swelling, wrist pain, wrist stiffness, wrist swelling Integumentary: Reports as per HPI Neurological: Reports as per HPI Psychiatric: Reports as per HPI Endocrine: Reports as per HPI Hematologic/Lymphatic: Reports as per HPI Allergic/Immunologic: Reports as per HPI Past Medical History Past Medical History: Cancer, COPD, Deep Vein Thrombosis (DVT), Hyperlipidemia, Hypertension, Pneumonia, Sleep Apnea/CPAP/BIPAP Additional Past Medical History / Comment(s): Arthritis. seasonal allergies , breast cancer, uses cpap, bruises and scrathes on arms History of Any Multi-Drug Resistant Organisms: None Reported Past Surgical History: Appendectomy, Breast Surgery, Heart Catheterization, Joint Replacement, Orthopedic Surgery, Tonsillectomy Additional Past Surgical History / Comment(s): Hx. right cyst aspiration, left breast excisional bx. Bilateral knee replacement Past Anesthesia/Blood Transfusion Reactions: Postoperative Nausea & Vomiting (PONV) Smoking Status: Former smoker - Past Family History Father Family Medical History: Cancer Additional Family Medical History / Comment(s): pancreatic Sister(s) Family Medical History: Cancer Additional Family Medical History / Comment(s): cervical, other sister bladder cancer Medications and Allergies Home Medications Medication Instructions Recorded Confirmed Type Naproxen Sodium [Aleve] 220 mg PO DAILY 05/06/18 03/25/24 History PARoxetine [Paxil] 20 mg PO HS 05/06/18 03/25/24 History Simvastatin [Zocor] 40 mg PO Q2D@2100 05/06/18 03/25/24 History Cholecalciferol [Vitamin D3 (25 50 mcg PO HS 03/27/19 03/25/24 History Mcg = 1000 Iu)] Albuterol Inhaler [Ventolin Hfa 2 puff INHALATION RT-QID PRN 10/21/23 03/25/24 History Inhaler] Melatonin 3 mg PO HS PRN 10/21/23 03/25/24 History Budesonide-Formot 160-4.5 Mcg 2 puff INHALATION RT-BID #1 each 10/26/23 03/25/24 Rx [Symbicort 160-4.5 Mcg Inhaler] Ipratropium-Albuterol Nebulize 3 ml INHALATION RT-QID PRN #120 10/26/23 03/25/24 Rx [Duoneb 0.5 mg-3 mg/3 ml Soln] each Valsartan/Hydrochlorothiazide 1 each PO DAILY 01/21/24 03/25/24 History [Valsartan-Hctz 320-25 mg Tab] Acetaminophen Tab [Tylenol] 650 mg PO Q4H PRN 03/20/24 03/25/24 History guaiFENesin [Mucinex] 0.5 tab PO DAILY PRN 03/20/24 03/25/24 History oxyCODONE HCL [OxyIR] 5 mg PO Q6H PRN #10 tab 03/25/24 Rx Allergies Allergy/AdvReac Type Severity Reaction Status Date / Time acetaminophen [From NyQuil] Allergy Dyspnea Verified 03/25/24 08:40 dextromethorphan Allergy Dyspnea Verified 03/25/24 08:40 [From NyQuil] doxylamine [From NyQuil] Allergy Dyspnea Verified 03/25/24 08:40 pseudoephedrine [From NyQuil] Allergy Dyspnea Verified 03/25/24 08:40 methocarbamol [From Robaxin] AdvReac Hallucinati Verified 03/25/24 08:40 ons tetracycline AdvReac Nausea Verified 03/25/24 08:40 Physical Exam Vitals: Vital Signs Temp Pulse Pulse Resp BP Pulse Ox 03/25/24 15:54 77 16 168/77 98 03/25/24 15:39 70 16 158/76 97 03/25/24 15:24 67 16 161/81 99 03/25/24 15:09 66 16 161/75 98 03/25/24 14:54 64 14 153/71 100 03/25/24 14:39 97.7 F 68 12 167/66 100 03/25/24 09:50 78 18 168/78 96 03/25/24 08:45 97.0 F L 86 18 175/81 94 L Intake and Output 03/25/24 03/25/24 03/25/24 06:59 14:59 22:59 Intake Total 1850 Output Total 350 100 Balance 1500 -100 Intake: IV 1850 Output: Urine 300 100 Estimated Blood Loss 50 Other: Weight 144.6 kg - Constitutional General appearance: obese - EENT Eyes: EOMI ENT: other (Mallampati class IV with significant crowding of posterior pharynx) Ears: negative: bulging, bullous, dull, erythema, fluid, myringotomy tube, obstructed by cerumen, scarring, unable to vistualize, other - Neck Carotids: negative: upstroke normal, upstroke delayed, upstroke diminished, upstroke bounding, bruit absent, bruit present Thyroid: negative: normal size, enlarged, firm, nodule - Respiratory Respiratory: bilateral: diminished, negative: CTA, dullness, rales, rhonchi, wheezing, prolonged expiration, prolonged inspiration, other - Cardiovascular Rhythm: regular Heart sounds: normal: S1, S2 - Gastrointestinal General gastrointestinal: no organomegaly, soft, no tenderness - Integumentary Examination of the skin revealed no evidence of significant rashes, suspicious appearing nevi or other concerning lesions. The patient has bilateral mastectomy. Surgical wound sites are dressed and the SHELBY drains are in place with minimal amount of output. - Neurologic Neurologic: CNII-XII intact - Musculoskeletal Musculoskeletal: gait normal - Psychiatric Psychiatric: A&O x's 3 Assessment and Plan Plan: Left and right mastectomy, with sentinel lymph node biopsy on the left, postop day #0. Surgery was done under general anesthesia. No complications. Hemody namically stable. Adequate respiratory status. No significant output from the SHELBY drains and the patient is currently on room air oxygen. Hemodynamically stable. COPD/asthma, currently inactive and stable Obstructive sleep apnea, severe maintained on CPAP pressure of 16 cm of water Hypertension Hyperlipidemia Morbid obesity with a BMI of 51.5 Osteoarthritis Plan Patient currently stable on oxygen room air. Provide incentive spirometer Utilize CPAP overnight Continue Symbicort DuoNeb updrafts 4 times daily as needed Resume home medications Will follow
[2024-03-25] MEDS: PARoxetine 20 MG TAB PO SCH (20:57)
[2024-03-25] MEDS: HEPARIN SODIUM,PORCINE 5,000 UNIT/ML 1 ML VIAL SQ SCH (23:00)
[2024-03-25] MEDS: MELATONIN 3 MG TABLET PO SCH (23:00)
[2024-03-25 23:14] VITALS: RESP 16
[2024-03-26 06:54] LABS: Basophils % (A) 0 %; Eosinophils % (A) 0 %; HCT 38.9 % (34.0-46.0); HGB 12.6 gm/dL (11.4-16.0); Hypochromasia Slight; Lymphocytes # (A) 1.6 k/uL (1.0-4.8); Lymphocytes % (A) 18 %; MCH 30.8 pg (25.0-35.0); MCHC 32.4 g/dL (31.0-37.0); MCV 95.2 fL (80.0-100.0); Monocytes # (A) 0.8 k/uL (0-1.0); Monocytes % (A) 9 %; Neutrophils # (A) 6.3 k/uL (1.3-7.7); Neutrophils % (A) 70 %; Platelet Count 191 k/uL (150-450); RBC 4.08 m/uL (3.80-5.40); RDW 13.7 % (11.5-15.5)
--- NOTE | 2024-03-26 10:04 | P.PN ---
Subjective Progress Note Date: 03/26/24 Principal diagnosis: Left breast DCIS/postop day 1 bilateral mastectomy left sentinel node biopsy Gauri is a 73-year-old white female postop day #1 bilateral mastectomy and left sentinel node biopsy. She is doing well postoperatively. Her hemoglobin is stable at 12.6. White count 9. She was seen postoperatively by Dr. Davison. She is tolerating her diet without difficulty. Her pain is under control. Objective - Vital Signs Vital signs: Vital Signs Temp 99.1 F 03/25/24 23:11 Pulse 78 03/25/24 23:11 Resp 16 03/25/24 23:11 BP 109/53 03/25/24 23:11 Pulse Ox 95 03/25/24 23:11 FiO2 Intake & Output 03/25/24 03/26/24 03/26/24 18:59 06:59 18:59 Intake Total 1850 500 Output Total 475 1115 Balance 1375 -615 Weight 144.6 kg Intake: IV 1850 Oral 500 Output: Drainage 25 115 Left drain A 10 35 Left drain B 5 40 Right drain A 10 20 Right drain B 0 20 Urine 400 1000 Uretheral (King) 1000 Estimated Blood Loss 50 Other: Voiding Method Indwelling Catheter - Constitutional General appearance: Present: cooperative - EENT Eyes: Present: EOMI ENT: Present: hearing grossly normal - Neck Neck: Present: normal ROM - Respiratory Details: Some shortness of breath with exertion/this is typical for the patient Slight inspiratory wheeze right base, mild decreased breath sounds at the bases - Cardiovascular Rhythm: regular Heart sounds: normal: S1, S2 - Integumentary Integumentary Comment(s): Clean and dry bilateral chest wall, SHELBY output serous bilaterally, no seromas bilaterally - Musculoskeletal Musculoskeletal Comment(s): Up in a chair - Psychiatric Psychiatric: Present: A&O x's 3, appropriate affect, intact judgment & insight - Labs CBC & Chem 7: 03/26/24 06:29 Assessment and Plan Assessment: Impression: Patient is stable at this time Tolerating diet without difficulty Pain is under control Plan: Discharge home if okay with pulmonary Follow-up 1 week
[2024-03-26 10:06] VITALS: BP 114/71; PULSE 80; TEMP 98.4
--- NOTE | 2024-03-26 10:07 | P.DS ---
Providers Date of admission: 03-25-24 Expected date of discharge: 03/26/24 Attending physician: Nadiya Phillips Consults: 03/25/24 14:25 Consult Physician Routine Consulting Provider: Brittani Lieberman Consult Reason/Comments: medical managment Do you want consulting provider notified?: Yes Consult Physician Routine Consulting Provider: Perfecto Hernandez Consult Reason/Comments: medical managment Do you want consulting provider notified?: Yes Primary care physician: Major Yi [facility] Course: Patient is status post bilateral mastectomy with a deep axillary node dissection on 03-25-2024. Postoperatively she is doing well. Her pain is under control. She is tolerating diet without difficulty. She has a history of pulmonary disease and is followed with pulmonary and discharge will be dependent on their approval. Plan - Discharge Summary Discharge Rx Participant: Yes New Discharge Prescriptions: New oxyCODONE HCL [OxyIR] 5 mg PO Q6H PRN #10 tab PRN Reason: Breakthrough Pain No Action Simvastatin [Zocor] 40 mg PO Q2D@2100 PARoxetine [Paxil] 20 mg PO HS Naproxen Sodium [Aleve] 220 mg PO DAILY Cholecalciferol [Vitamin D3 (25 Mcg = 1000 Iu)] 50 mcg PO HS Valsartan/Hydrochlorothiazide [Valsartan-Hctz 320-25 mg Tab] 1 each PO DAILY Melatonin 3 mg PO HS PRN PRN Reason: Insomnia Albuterol Inhaler [Ventolin Hfa Inhaler] 2 puff INHALATION RT-QID PRN PRN Reason: Shortness Of Breath Ipratropium-Albuterol Nebulize [Duoneb 0.5 mg-3 mg/3 ml Soln] 3 ml INHALATION RT-QID PRN #120 each PRN Reason: Shortness Of Breath Budesonide-Formot 160-4.5 Mcg [Symbicort 160-4.5 Mcg Inhaler] 2 puff INHALATION RT-BID #1 each guaiFENesin [Mucinex] 0.5 tab PO DAILY PRN PRN Reason: Congestion Acetaminophen Tab [Tylenol] 650 mg PO Q4H PRN PRN Reason: back pain Discharge Medication List Naproxen Sodium [Aleve] 220 mg PO DAILY 05/06/18 [History] PARoxetine [Paxil] 20 mg PO HS 05/06/18 [History] Simvastatin [Zocor] 40 mg PO Q2D@2100 05/06/18 [History] Cholecalciferol [Vitamin D3 (25 Mcg = 1000 Iu)] 50 mcg PO HS 03/27/19 [History] Albuterol Inhaler [Ventolin Hfa Inhaler] 2 puff INHALATION RT-QID PRN 10/21/23 [History] Melatonin 3 mg PO HS PRN 10/21/23 [History] Budesonide-Formot 160-4.5 Mcg [Symbicort 160-4.5 Mcg Inhaler] 2 puff INHALATION RT-BID #1 each 10/26/23 [Rx] Ipratropium-Albuterol Nebulize [Duoneb 0.5 mg-3 mg/3 ml Soln] 3 ml INHALATION RT-QID PRN #120 each 10/26/23 [Rx] Valsartan/Hydrochlorothiazide [Valsartan-Hctz 320-25 mg Tab] 1 each PO DAILY 01/21/24 [History] Acetaminophen Tab [Tylenol] 650 mg PO Q4H PRN 03/20/24 [History] guaiFENesin [Mucinex] 0.5 tab PO DAILY PRN 03/20/24 [History] oxyCODONE HCL [OxyIR] 5 mg PO Q6H PRN #10 tab 03/25/24 [Rx] Follow up Appointment(s)/Referral(s): Nadiya Phillips MD [STAFF PHYSICIAN] - 04/04/24 11:00 am [facility], [NON-STAFF] - 1 Week Activity/Diet/Wound Care/Special Instructions: Teach drain care/drain and record SHELBY output for each drain twice daily and as n eeded May shower with help after 48 hours Keep dressing on at all times unless showering Discharge Disposition: HOME WITH HOME HEALTH SERVICES
--- NOTE | 2024-03-26 12:45 | P.CONS ---
History of Present Illness - Reason for Consult Consult date: 03/26/24 - History of Present Illness 73 year old F with PMH of COPD, GLADYS on CPAP, HTN, HLD presents to [facility] for elective surgery. She underwent left breast mastectomy, left sentinel node mapping with methylene blue, left deep axillary node resection, right mastectomy with Dr. David Yo on 03/25. [facility] Physicians consulted for medical management of this patient. 03/26 Patient reports feeling well. Pain is currently well controlled. She denies any shortness of breath. She reports a chronic cough. CBC done today is unremarkable. BP 114/71, HR 80, T 98.4F, RR 16, 93% on RA. General: non toxic, no distress, appears at stated age Derm: warm, dry Head: atraumatic, normocephalic, symmetric Eyes: EOMI, no lid lag, anicteric sclera Mouth: no lip lesion, mucus membranes moist Cardiovascular: S1S2 reg, no murmur Lungs: Decreased BS bilateral with scattered end expiratory wheezing, no rhonchi, no rales , no accessory muscle use Ext: no gross muscle atrophy, no edema, no contractures Neuro: no focal neuro deficits Psych: Alert, oriented, appropriate affect Based on my assessment of this patient, this patient meets a high complexity level of care. COPD not in acute exacerbation: Albuterol inhaler and DuoNeb PRN for SOB/wheezing. Symbicort 2 INH BID. GLADYS on CPAP at bedtime HTN: Valsartan/HCTZ 320-25 mg PO QD. HLD: Simvastatin 40 mg PO Q2D. Left breast mastectomy, left sentinel node mapping with methylene blue, left deep axillary node resection, right mastectomy with Dr. David Yo on 03/25 Medically stable for discharge. CODE STATUS: FULL CODE. DVT Prophylaxis: Heparin SQ GI Prophylaxis: Designated medical POA if patient is not able to make medical decisions for themselves: I have reviewed the following assessment consultant notes: OR note, Pulmonary note. I have reviewed the results of the following tests: CBC. I have ordered the following tests: I have discussed the care of this patient with the following independent historian: Jared RN. I have independently interpreted the following test below: I have discussed the management of this patient with the following physician: Past Medical History Past Medical History: Cancer, COPD, Deep Vein Thrombosis (DVT), Hyperlipidemia, Hypertension, Pneumonia, Sleep Apnea/CPAP/BIPAP Additional Past Medical History / Comment(s): Arthritis. seasonal allergies , breast cancer, uses cpap, bruises and scrathes on arms History of Any Multi-Drug Resistant Organisms: None Reported Past Surgical History: Appendectomy, Breast Surgery, Heart Catheterization, Joint Replacement, Orthopedic Surgery, Tonsillectomy Additional Past Surgical History / Comment(s): Hx. right cyst aspiration, left breast excisional bx. Bilateral knee replacement Past Anesthesia/Blood Transfusion Reactions: Postoperative Nausea & Vomiting (PONV) Smoking Status: Former smoker - Past Family History Father Family Medical History: Cancer Additional Family Medical History / Comment(s): pancreatic Sister(s) Family Medical History: Cancer Additional Family Medical History / Comment(s): cervical, other sister bladder cancer Medications and Allergies Home Medications Medication Instructions Recorded Confirmed Type Naproxen Sodium [Aleve] 220 mg PO DAILY 05/06/18 03/25/24 History PARoxetine [Paxil] 20 mg PO HS 05/06/18 03/25/24 History Simvastatin [Zocor] 40 mg PO Q2D@2100 05/06/18 03/25/24 History Cholecalciferol [Vitamin D3 (25 50 mcg PO HS 03/27/19 03/25/24 History Mcg = 1000 Iu)] Albuterol Inhaler [Ventolin Hfa 2 puff INHALATION RT-QID PRN 10/21/23 03/25/24 History Inhaler] Melatonin 3 mg PO HS PRN 10/21/23 03/25/24 History Budesonide-Formot 160-4.5 Mcg 2 puff INHALATION RT-BID #1 each 10/26/23 03/25/24 Rx [Symbicort 160-4.5 Mcg Inhaler] Ipratropium-Albuterol Nebulize 3 ml INHALATION RT-QID PRN #120 10/26/23 03/25/24 Rx [Duoneb 0.5 mg-3 mg/3 ml Soln] each Valsartan/Hydrochlorothiazide 1 each PO DAILY 01/21/24 03/25/24 History [Valsartan-Hctz 320-25 mg Tab] Acetaminophen Tab [Tylenol] 650 mg PO Q4H PRN 03/20/24 03/25/24 History guaiFENesin [Mucinex] 0.5 tab PO DAILY PRN 03/20/24 03/25/24 History oxyCODONE HCL [OxyIR] 5 mg PO Q6H PRN #10 tab 03/25/24 Rx Allergies Allergy/AdvReac Type Severity Reaction Status Date / Time acetaminophen [From NyQuil] Allergy Dyspnea Verified 03/25/24 08:40 dextromethorphan Allergy Dyspnea Verified 03/25/24 08:40 [From NyQuil] doxylamine [From NyQuil] Allergy Dyspnea Verified 03/25/24 08:40 pseudoephedrine [From NyQuil] Allergy Dyspnea Verified 03/25/24 08:40 methocarbamol [From Robaxin] AdvReac Hallucinati Verified 03/25/24 08:40 ons tetracycline AdvReac Nausea Verified 03/25/24 08:40 Physical Exam Vitals: Vital Signs Temp Pulse Pulse Pulse Resp BP BP 03/26/24 08:00 98.4 F 80 16 114/71 03/25/24 23:11 99.1 F 78 16 109/53 03/25/24 21:10 99.1 F 83 18 131/73 03/25/24 18:05 98.0 F 76 16 156/76 03/25/24 17:35 76 16 156/76 03/25/24 17:05 64 16 171/80 03/25/24 16:50 66 16 169/116 03/25/24 16:35 68 16 150/79 03/25/24 16:20 98.1 F 64 16 165/82 03/25/24 15:54 77 16 168/77 03/25/24 15:39 70 16 158/76 03/25/24 15:24 67 16 161/81 03/25/24 15:09 66 16 161/75 03/25/24 14:54 64 14 153/71 03/25/24 14:39 97.7 F 68 12 167/66 Pulse Ox 03/26/24 08:00 93 L 03/25/24 23:11 95 03/25/24 21:10 95 03/25/24 18:05 96 03/25/24 17:35 96 03/25/24 17:05 96 03/25/24 16:50 95 03/25/24 16:35 96 03/25/24 16:20 95 03/25/24 15:54 98 03/25/24 15:39 97 03/25/24 15:24 99 03/25/24 15:09 98 03/25/24 14:54 100 03/25/24 14:39 100 Intake and Output 03/25/24 03/26/24 03/26/24 22:59 06:59 14:59 Intake Total 500 Output Total 686 374 9508 Balance -880 140 -1065 Intake: Oral 500 Output: Drainage 80 60 65 Left drain A 25 20 20 Left drain B 25 20 15 Right drain A 30 Right drain B 0 20 30 Urine 053 [id number] Uretheral (King) [phone] Other: Voiding Method Indwelling Catheter Weight 144.6 kg Results CBC & Chem 7: 03/26/24 06:29
[2024-03-26] MEDS: hydroCHLOROthiazide 25 MG TAB PO SCH (14:51)
[2024-03-26] MEDS: VALSARTAN 160 MG TAB PO SCH (14:51)
[2024-03-26] MEDS ORDERED: PARoxetine 20 MG TAB PO SCH (21:00)
[2024-03-26] MEDS ORDERED: ATORVASTATIN 20 MG TAB PO SCH (21:00)
== END 2024-03-26 14:52 | disposition home health service (06) ==
LOC: OR 07:45 → 4FBP 14:29 → OR 03-26 14:52
PROVIDERS: ATTEND Surgery
DX: N62 Hypertrophy of breast
CPT/HCPCS: 38792; 64999; 85025; 88307; 88309; 88341; 88342

== ENCOUNTER → 2024-04-04 | Outpatient (CLI) | payer MEDICARE ==
--- NOTE | 2024-04-04 11:12 | P.BCPO ---
Progress Note - Text Progress Note Date: 04/04/24 Gauri is a 73 year old female status post bilateral mastectomies with a history of left breaset 6 mm DCIS, and lobular carcinoma in situ, SNB (-). Right breast multifocal atypical lobular hyperplasia/LCIS. Focal flat epithelial atypia, and ADH. She is doing well postoperatively. Her pain is well under control. She has [address] which has minimal drainage and is going to be pulled from the right axillary area. The remaining drains have a proximately 40 cc/day and are serous in nature. Lungs: Clear Heart: Regular rate and rhythm Incision: Clean and dry bilateral no definite seroma on either side, there is some ecchymosis/necrosis of the very medial aspect of the right incision Impression: Patient doing well postoperatively Plan: Keep 3 of the drains in until next week Follow-up next week for drain removal Follow-up medical oncology appointment physical therapy CC: Dr. Nazario Post Op Education - Post Op Education Post Op Education Provided Date: 04/04/24 - Functional Assessment Performed?: Yes (arm abduction/decreased) Referal Provided?: Yes Path Report - Was patient given path report? Path Report Date Given: 04/04/24
[2024-04-04 11:24] VITALS: BP 163/53; PULSE 85; RESP 22; TEMP 98.4
== END ==
LOC: WWCWWP 10:55
PROVIDERS: ATTEND Surgery
DX: D05.12 Intraductal carcinoma in situ of left breast

== ENCOUNTER → 2024-04-09 | Outpatient (CLI) | payer MEDICARE ==
[2024-04-09 11:56] VITALS: BP 151/68; PULSE 87; RESP 17; TEMP 97.8
--- NOTE | 2024-04-09 12:52 | P.PN ---
Subjective Progress Note Date: 04/09/24 Principal diagnosis: bilateral mastectomys 04/04/24 Gauri is a 73 year old female status post bilateral mastectomies with a history of left breaset 6 mm DCIS, and lobular carcinoma in situ, SNB (-). Right breast multifocal atypical lobular hyperplasia/LCIS. Focal flat epithelial atypia, and ADH. She is doing well postoperatively. Her pain is well under control. 1 drain was removed last week and one came out at home before she returned. She still has greater than 40 cc from the drains that are remaining. Lungs: Clear Heart: Regular rate and rhythm Incision: Clean and dry bilateral no definite seroma on either side, there is some ecchymosis/necrosis of the very medial aspect of the right incision Impression: Patient doing well postoperatively Plan: Keep 2 of the drains until next week Follow-up next week for drain removal Follow-up medical oncology appointment physical therapy CC: Dr. Nazario Objective - Vital Signs Vital signs: Vital Signs Temp 97.8 F 04/09/24 11:52 Pulse 87 04/09/24 11:52 Resp 17 04/09/24 11:52 BP 151/68 04/09/24 11:52 Pulse Ox 98 04/09/24 11:52 FiO2 Intake & Output 04/08/24 04/09/24 04/09/24 18:59 06:59 18:59 Weight 136.078 kg
== END ==
LOC: WWCWWP 10:49
PROVIDERS: ATTEND Surgery
DX: Z85.3 Personal history of malignant neoplasm of breast

== ENCOUNTER → 2024-04-18 | Outpatient (CLI) | payer MEDICARE ==
[2024-04-18 10:22] VITALS: BP 148/82; PULSE 55; RESP 18; TEMP 97.9
--- NOTE | 2024-04-18 10:36 | P.BCPO ---
Progress Note - Text Progress Note Date: 04/18/24 bilateral mastectomys 04-18-24 Gauri is a 73 year old female status post bilateral mastectomies with a history of left breaset 6 mm DCIS, and lobular carcinoma in situ, SNB (-). Right breast multifocal atypical lobular hyperplasia/LCIS. Focal flat epithelial atypia, and ADH. She is doing well postoperatively. Her pain is well under control. 1 drain was removed 2 weeks ago one came out at home before she returned. She still had greater than 40 cc from the drains that were remaining on 04-04-24. The drains on the right side fell out last week. Remaining drain has between 150 and 200 cc/day of straw-colored fluid. She saw medical oncology last week and is not recommended for any treatment. Lungs: Clear. slight wheezing at bases Heart: Regular rate and rhythm Incision: Clean and dry bilateral no definite seroma on either side, there is some necrosis of the medial aspect of the right chest wall incision; remaining drain is in place. Impression: Patient doing well postoperatively Plan: Keep place until next week Follow-up next week for possible drain removal appointment physical therapy if patient wishes CC: Dr. Nazario
== END ==
LOC: WWCWWP 09:49
PROVIDERS: ATTEND Surgery

== ENCOUNTER → 2024-04-25 | Outpatient (CLI) | payer MEDICARE ==
--- NOTE | 2024-04-25 08:24 | P.PN ---
Subjective Progress Note Date: 04/25/24 bilateral mastectomys 04-25-24 Gauri is a 73 year old female status post bilateral mastectomies with a history of left breaset 6 mm DCIS, and lobular carcinoma in situ, SNB (-). Right breast multifocal atypical lobular hyperplasia/LCIS. Focal flat epithelial atypia, and ADH. She is doing well postoperatively. Her pain is well under control. 1 drain was removed 2 weeks ago one came out at home before she returned. She still had greater than 40 cc from the drains that were remaining on 04-04-24. The drains on the right side fell out. Remaining drain has 40 cc of fluid per 24-hour period. She saw medical oncology and is not recommended for any treatment. Lungs: Clear. slight wheezing at bases Heart: Regular rate and rhythm Incision: Clean and dry bilateral no definite seroma on either side, there is some necrosis of the medial aspect of the right chest wall incision; remaining drain is in place. Impression: Patient doing well postoperatively some necrosis of the medial aspect of the right mastectomy site Recommend debridement of medial aspect right mastectomy site Plan: Debridement area of concern right mastectomy incision Follow-up Following informed consent the area of concern in the right breast was prepped using chlorhexidine. A 15 blade scalpel was utilized to debride nonviable tissue in the medial aspect of the incision. The area was 6 cm in length. The debridement resulted in opening of the wound down to the muscle of the chest wall. The area was cleaned and reinforced using 3-0 nylon suture. The patient tolerated the procedure in stable condition. The SHELBY drain continue to maintain suction after debridement of the area. Therefore the SHELBY drain was left in place. The patient will follow-up in 3 days. She will follow-up sooner any questions or concerns. CC: Dr. Nazario
[2024-04-25 09:31] VITALS: BP 135/83; PULSE 71; RESP 17; TEMP 98.1
== END ==
LOC: WWCWWP 07:42
PROVIDERS: ATTEND Surgery

== ENCOUNTER → 2024-04-28 | Outpatient (CLI) | payer MEDICARE ==
[2024-04-28 08:08] VITALS: BP 164/73; PULSE 75; RESP 19; TEMP 97.9
--- NOTE | 2024-04-28 09:25 | P.PN ---
Subjective Progress Note Date: 04/28/24 04-28-24 Gauri is a 73 year old female status post bilateral mastectomies with a history of left breaset 6 mm DCIS, and lobular carcinoma in situ, SNB (-). Right breast multifocal atypical lobular hyperplasia/LCIS. Focal flat epithelial atypia, and ADH. She is doing well postoperatively. Her pain is well under control. 1 drain was removed 2 weeks ago one came out at home before she returned. She still had greater than 40 cc from the drains that were remaining on 04-04-24. The drains on the right side fell out. Remaining drain has 40 cc of fluid per 24-hour period. She saw medical oncology and is not recommended for any treatment. Lungs: Clear. slight wheezing at bases Heart: Regular rate and rhythm Incision: Clean and dry bilateral no definite seroma on either side, right breast incision debrided on last visit healing at this time Impression: Patient doing well postoperatively some necrosis of the medial aspect of the right mastectomy site debrided on her last visit Plan: DC right breast drain Follow-up 5 days Sunday CC: Dr. Nazario Objective - Vital Signs Vital signs: Vital Signs Temp 97.9 F 04/28/24 08:05 Pulse 75 04/28/24 08:05 Resp 19 04/28/24 08:05 BP 164/73 04/28/24 08:05 Pulse Ox 94 L 04/28/24 08:05 FiO2 Intake & Output 04/27/24 04/28/24 04/28/24 18:59 06:59 18:59 Weight 136.078 kg
== END ==
LOC: WWCWWP 07:53
PROVIDERS: ATTEND Surgery

== ENCOUNTER → 2024-05-01 | Outpatient (CLI) | payer MEDICARE ==
--- NOTE | 2024-05-01 12:31 | P.PN ---
Subjective Progress Note Date: 05/01/24 05-01-24 Gauri is a 73 year old female status post bilateral mastectomies with a history of left breast 6 mm DCIS, and lobular carcinoma in situ, SNB (-). Right breast multifocal atypical lobular hyperplasia/LCIS. Focal flat epithelial atypia, and ADH. She is doing well postoperatively. Her pain is well under control. 1 drain was removed 2 weeks ago one came out at home before she returned. She still had greater than 40 cc from the drains that were remaining on 04-04-24. The drains on the right side fell out. Remaining drain had 40 cc of fluid per 24-hour period, this was removed on 04-28-24. She saw medical oncology and is not recommended for any treatment. Lungs: Clear. slight wheezing at bases Heart: Regular rate and rhythm Incision: Clean and dry right breast incision debrided on last visit healing at this time but open at the medial aspect of the incision Impression: Patient doing well postoperatively some necrosis of the medial aspect of the right mastectomy site debrided on her last visit, the patient has had several sutures removed on this visit and there is some opening of the medial aspect of the incision which is granulating Plan: Packing daily of wound Follow-up next week continue home health care CC: Dr. Nazario
[2024-05-01 12:32] VITALS: BP 134/79; PULSE 72; RESP 17; TEMP 96.5
== END ==
LOC: WWCWWP 12:07
PROVIDERS: ATTEND Surgery
DX: N60.91 Unspecified benign mammary dysplasia of right breast (principal); Z90.13 Acquired absence of bilateral breasts and nipples; Z88.1 Allergy status to other antibiotic agents; Z88.8 Allergy status to other drugs, medicaments and biological substances; Z87.891 Personal history of nicotine dependence

== ENCOUNTER → 2024-05-08 | Outpatient (CLI) | payer MEDICARE ==
--- NOTE | 2024-05-08 09:44 | P.BCPO ---
Progress Note - Text Progress Note Date: 05/08/24 05-08-24 Gauri is a 73 year old female status post bilateral mastectomies with a history of left breast 6 mm DCIS, and lobular carcinoma in situ, SNB (-). Right breast multifocal atypical lobular hyperplasia/LCIS. Focal flat epithelial atypia, and ADH. She is doing well postoperatively. Her pain is well under control. 1 drain was removed 3 weeks ago one came out at home before she returned. She still had greater than 40 cc from the drains that were remaining on 04-04-24. The drains on the right side fell out. Remaining drain had 40 cc of fluid per 24-hour period, this was removed on 04-28-24. Last seen 05-01-24. She saw medical oncology and is not recommended for any treatment. Lungs: Clear. slight wheezing at bases Heart: Regular rate and rhythm Incision: Clean and dry right breast incision at the medial aspect Following Consent the area of necrosis at the medial aspect of the wound was debrided using sharp dissection. The sutures were removed. The area of open incision was approximately 5 cm x 1 cm. It is approximately 1 cm deep. The wound was well irrigated. After we are sure that hemostasis was attained which was accomplished at the area which had been debrided using the nitrate stick the wound was packed. Impression: Plan: Packing daily of wet/to dry dressings Follow-up two week continue home health care Follow up sooner any questions or concerns CC: Dr. Nazario
[2024-05-08 10:02] VITALS: BP 145/58; PULSE 68; RESP 17; TEMP 98.1
== END ==
LOC: WWCWWP 09:13
PROVIDERS: ATTEND Surgery
DX: Z04.89 Encounter for examination and observation for other specified reasons (principal); Z85.3 Personal history of malignant neoplasm of breast; Z90.13 Acquired absence of bilateral breasts and nipples; Z88.1 Allergy status to other antibiotic agents; Z88.8 Allergy status to other drugs, medicaments and biological substances; Z87.891 Personal history of nicotine dependence

== ENCOUNTER → 2024-05-22 | Outpatient (CLI) | payer MEDICARE ==
[2024-05-22 09:36] VITALS: BP 147/76; PULSE 82; RESP 18; TEMP 98.3
--- NOTE | 2024-05-22 09:42 | P.PN ---
Subjective Progress Note Date: 05/22/24 05-08-24 Gauri is a 73 year old female status post bilateral mastectomies with a history of left breast 6 mm DCIS, and lobular carcinoma in situ, SNB (-). Right breast multifocal atypical lobular hyperplasia/LCIS. Focal flat epithelial atypia, and ADH. She is doing well postoperatively. Her pain is well under control. Drain removed and medical aspect right incision debrided. 5 by 1 cm 1 cm deep. She saw medical oncology and is not recommended for any treatment. Lungs: Clear. slight wheezing at bases Heart: Regular rate and rhythm Incision: Clean and dry right breast incision at the medial aspect was debrided and there is an area of granulation which is approximately 5 x 1 cm x 1 cm deep however it is tunneling medially another 2 cm Impression: Plan: Packing daily of wet/to dry dressings Follow-up two week continue home health care Follow up sooner any questions or concerns CC: Dr. Nazario Objective - Vital Signs Vital signs: Intake & Output 05/21/24 05/22/24 05/22/24 18:59 06:59 18:59 Weight 136.078 kg
== END ==
LOC: WWCWWP 09:09
PROVIDERS: ATTEND Surgery
DX: D05.01 Lobular carcinoma in situ of right breast (principal); Z88.1 Allergy status to other antibiotic agents; Z88.8 Allergy status to other drugs, medicaments and biological substances; Z90.13 Acquired absence of bilateral breasts and nipples; Z87.891 Personal history of nicotine dependence; Z85.3 Personal history of malignant neoplasm of breast

== ENCOUNTER → 2024-05-27 | Outpatient (CLI) | payer MEDICARE ==
--- NOTE | 2024-05-27 17:54 | CT ---
EXAMINATION TYPE: CT angio chest DATE OF EXAM: 05/27/2024 5:27 PM COMPARISON: Previous CT chest scintigram study 10/21/2023. CLINICAL INDICATION: Female, 73 years old with history of R79.1 ABN COAGULATION; BRADY, positive dimer TECHNIQUE/CONTRAST: CTA scan of the thorax is performed with IV Contrast, patient injected with 80 mL of Isovue 370, MIP images are created and reviewed these are created on a separate workstation.. CT DLP: 1671 mGycm, Automated exposure control for dose reduction was used. FINDINGS: Pulmonary Artery: Optimal timing of contrast bolus limits evaluation for distal segmental and some se gmental pulmonary arteries. Within these limitations, there is no evidence for a filling defect withi n the pulmonary vasculature to suggest acute pulmonary embolism. Lungs/Pleura: Scattered regions of atelectasis and mucous plugging with bronchial wall thickening. No pleural effusion or pneumothorax. Airway: Large airways are patent. Heart: Mild cardiomegaly. Coronary artery callus occasions. Vasculature: No evidence of aortic aneurysm. Dilated pulmonary artery measuring 4.5 cm in diameter. Mediastinum: No gross evidence of adenopathy. Musculoskeletal: No acute osseous abnormalities Soft Tissues/lymph nodes: Subcutaneous stranding in the right chest wall with possible overlying woun d/ulceration (axial image 107), recommend clinical correlation with direct visualization. Lower neck: No significant findings. Upper Abdomen: No significant findings. IMPRESSION: 1. No evidence of acute pulmonary embolism within the limitations described above. 2. Dilated main pulmonary artery, which can be associated with pulmonary hypertension. 3. Cardiomegaly and coronary artery calcifications. 4. Scattered regions of mucous plugging, bronchial wall thickening and atelectasis suggesting bronch itis. [facility], , 05/27/2024 5:52 PM
== END | disposition home or self-care (01) ==
LOC: RADCTMAIN 16:04
PROVIDERS: ATTEND Family Medicine
DX: I25.10 Atherosclerotic heart disease of native coronary artery without angina pectoris (principal); I27.0 Primary pulmonary hypertension; I51.7 Cardiomegaly; R79.1 Abnormal coagulation profile; J98.09 Other diseases of bronchus, not elsewhere classified
CPT/HCPCS: 71275; Q9967

== ENCOUNTER → 2024-06-13 | Outpatient (CLI) | payer MEDICARE ==
[2024-06-13 08:17] VITALS: BP 156/68; PULSE 72; RESP 18; TEMP 98.4
--- NOTE | 2024-06-13 08:27 | P.PN ---
Subjective Progress Note Date: 06/13/24 05-08-24 Gauri is a 73 year old female status post bilateral mastectomies with a history of left breast 6 mm DCIS, and lobular carcinoma in situ, SNB (-). Right breast multifocal atypical lobular hyperplasia/LCIS. Focal flat epithelial atypia, and ADH. She is doing well postoperatively. Her pain is well under control. Drain removed and medical aspect right incision debrided. 5 by 1 cm 1 cm deep. She saw medical oncology and is not recommended for any treatment. Lungs: Clear. slight wheezing at bases Heart: Regular rate and rhythm Incision: Clean and dry right breast incision at the medial aspect was debrided and there is an area of granulation which is approximately 3.5 x 1 cm x 0.5 cm deep however it tunneling there is clean granulation tissue Impression: Plan: Packing daily dry dressings Follow-up 1 month continue home health care Follow up sooner any questions or concerns CC: Dr. Nazario Objective - Vital Signs Vital signs: Vital Signs Temp 98.4 F 06/13/24 08:14 Pulse 72 06/13/24 08:14 Resp 18 06/13/24 08:14 BP 156/68 06/13/24 08:14 Pulse Ox 95 06/13/24 08:14 FiO2 Intake & Output 06/12/24 06/13/24 06/13/24 18:59 06:59 18:59 Weight 136.078 kg
== END ==
LOC: WWCWWP 07:59
PROVIDERS: ATTEND Surgery
DX: Z85.3 Personal history of malignant neoplasm of breast (principal); Z90.13 Acquired absence of bilateral breasts and nipples; Z87.891 Personal history of nicotine dependence; Z88.1 Allergy status to other antibiotic agents; Z88.8 Allergy status to other drugs, medicaments and biological substances

== ENCOUNTER → 2024-08-01 | Outpatient (CLI) | payer MEDICARE ==
[2024-08-01 09:31] VITALS: BP 164/75; PULSE 72; RESP 18; TEMP 97.9
--- NOTE | 2024-08-01 09:47 | P.PN ---
Subjective Progress Note Date: 08/01/24 Principal diagnosis: DCIS 202308-01-24 Principal diagnosis: DCIS left breast Fibrocystic breast changes/status post right breast abscess 2019 not recurrent, abnormal left breast mammogram microcalcifications + DCIS; bilateral mastectomies Gauri is a 73-year-old white female status post incision and drainage of a large abscess in the right breast on [id number]. She had a bilateral mammogram on 01-18-24 which was benign BIRADS 1, however with review personally with Dr. Retana there are any area of calcifications in the left breast for which stereotactic core biopsy has been recommended. She underwent a stero core biopsy on 01-31-24 of the left breast. The pathology was DCIS. Her case was presented at tumor board on 03-11-24. She has elected for a bilateral mastectomy. She does want to have reconstruction. After discussion she wishes to have a sentinal node biopsy as well. She had a bilateral mastectomy on 03-26-24. Left breast 6 mm DCIS, and LCIS. SNB (-). Right breast multifocal ALH/LCIS. ADH and focal flat epithelial atypia. She had some difficulty with wound healing of the right medial mastectomy incision. She was seen by medical oncology and no further treatment recommended. note medical oncology 04-17-24 reviewed caffiene: 2 cups/day nicotine: stopped 8 years ago chocolate: rare hormones: none; BCP: never used Family History: father: pancreatic sister: cervical Hormonal history: menarche: 10 breast fed: no, age at first : 18 menopause: 46 BCP: none hormones: none Surgical history: 1. Tonsillectomy 2. Appendectomy 3. Bilateral knee replacement 4. Cataract surgery 5. I&D right breast abscess 6. bilateral mastectomies left SNB Medical history: 1.HTN 2. back pain/ arthritis 3. sleep apnea 4. sciatic pain 5. COPD Social: smoke:stopped 5 years ago alcohol: Occasional Marijuana: Negative - Constitutional Constitutional: Denies chills, Denies fever - EENT Comment: Cataract surgery Ears: deny: decreased hearing, tinnitus Ears, nose, mouth and throat: Reports sinus pressure, Denies headache, Denies sore throat - Breasts Breasts: bilateral: as per HPI - Cardiovascular Cardiovascular: Reports high blood pressure - Respiratory Comment: former smoker Respiratory: Reports cough - Gastrointestinal Gastrointestinal: Denies abdominal pain, Denies diarrhea, Denies nausea, Denies vomiting - Genitourinary (Female) Genitourinary: Denies dysuria, Denies hematuria - Menstruation Menstruation: Reports postmenopausal - Musculoskeletal Comment: back pain - Integumentary Integumentary: Denies pruritus, Denies rash - Neurological Neurological: Denies numbness, Denies weakness - Psychiatric Psychiatric: Reports anxiety, Reports depression - Endocrine Endocrine: Reports weight change - Hematologic/Lymphatic Comment: none - Allergic/Immunologic Allergic/Immunologic: Reports seasonal allergies Objective - Vital Signs Vital signs: Vital Signs Temp 97.9 F 08/01/24 09:28 Pulse 72 08/01/24 09:28 Resp 18 08/01/24 09:28 BP 164/75 08/01/24 09:28 Pulse Ox 95 08/01/24 09:28 FiO2 Intake & Output 07/31/24 08/01/24 08/01/24 18:59 06:59 18:59 Weight 133.81 kg - Constitutional General appearance: Present: cooperative - EENT Eyes: Present: EOMI ENT: Present: hearing grossly normal - Neck Neck: Present: normal ROM - Respiratory Respiratory: bilateral: CTA - Cardiovascular Rhythm: regular Heart sounds: normal: S1, S2 - Integumentary Integumentary: Present: normal turgor - Psychiatric Psychiatric: Present: A&O x's 3, appropriate affect, intact judgment & insight - Additional findings Additional findings: Breast exam: BRA: 52DDD in the past now bilateral mastectomies Inspection: Bilateral mastectomies Palpation: Right breast: Right chest wall incision clean and dry well-healed no evidence of any disease Right axilla: No adenopathy of concern Left chest wall: Incision clean and dry no evidence of any disease Left axilla: No adenopathy of concern Assessment and Plan Assessment: Impression: Fibrocystic breast changes/DCIS status post bilateral mastectomies Back pain Hypertension Shortness of breath with activity Plan: follow up in 6 months for this CC: Dr. Nazario
== END ==
LOC: WWCWWP 09:15
PROVIDERS: ATTEND Surgery
DX: D05.12 Intraductal carcinoma in situ of left breast (principal); I10 Essential (primary) hypertension; M54.9 Dorsalgia, unspecified; R06.02 Shortness of breath; Z87.891 Personal history of nicotine dependence; Z88.6 Allergy status to analgesic agent; Z88.8 Allergy status to other drugs, medicaments and biological substances; Z88.5 Allergy status to narcotic agent; Z88.1 Allergy status to other antibiotic agents

== ENCOUNTER 2024-09-09 12:09 | Inpatient (IN) | payer MEDICARE ==
--- NOTE | 2024-09-09 12:41 | ED ---
General Adult HPI - General Chief complaint: Shortness of Breath Stated complaint: SOB Time Seen by Provider: 09/09/24 12:25 Source: patient Mode of arrival: wheelchair Limitations: no limitations - History of Present Illness Initial comments: Dictation was produced using [employer] dictation software. please excuse any grammatical, word or spelling errors. Chief Complaint: 73-year-old female with heart failure and COPD presents emergency department for dyspnea x 2 days History of Present Illness: Patient 73-year-old female with remote history of tobacco use. She has a history of COPD and cardiac issues. Complains of shortness of breath for the last 2 days. She does have some mild nasal congestion. Denies any sore throat. No fever chills or night sweats she does have a productive cough. Denies any chest pain. Denies any leg swelling. The ROS documented in this emergency department record has been reviewed and confirmed by me. Those systems with pertinent positive or negative responses have been documented in the HPI. All other systems are other negative and/or noncontributory. - Related Data Home Medications Medication Instructions Recorded Confirmed Naproxen Sodium [Aleve] 220 mg PO DAILY PRN 05/06/18 09/09/24 PARoxetine [Paxil] 20 mg PO HS 05/06/18 09/09/24 Simvastatin [Zocor] 40 mg PO Q2D@2100 05/06/18 09/09/24 Albuterol Inhaler [Ventolin Hfa 2 puff INHALATION RT-QID PRN 10/21/23 09/09/24 Inhaler] Melatonin 3 mg PO HS 10/21/23 09/09/24 Valsartan/Hydrochlorothiazide 1 tab PO DAILY 01/21/24 09/09/24 [Valsartan-Hctz 320-25 mg Tab] Acetaminophen Tab [Tylenol] 650 mg PO Q6H PRN 03/20/24 09/09/24 guaiFENesin [Mucinex] 600 tab PO BID PRN 03/20/24 09/09/24 Cholecalciferol (Vitamin D3) 50 mcg PO HS 09/09/24 09/09/24 [Vitamin D3 (50 Mcg = 2000 Iu)] Furosemide [Lasix] 20 mg PO DAILY PRN 09/09/24 09/09/24 Previous Rx's Medication Instructions Recorded Budesonide-Formot 160-4.5 Mcg 2 puff INHALATION RT-BID #1 each 10/26/23 [Symbicort 160-4.5 Mcg Inhaler] Allergies Allergy/AdvReac Type Severity Reaction Status Date / Time acetaminophen [From NyQuil] Allergy Dyspnea Verified 09/09/24 14:17 dextromethorphan Allergy Dyspnea Verified 09/09/24 14:17 [From NyQuil] doxylamine [From NyQuil] Allergy Dyspnea Verified 09/09/24 14:17 pseudoephedrine [From NyQuil] Allergy Dyspnea Verified 09/09/24 14:17 methocarbamol [From Robaxin] AdvReac Hallucinati Verified 09/09/24 14:17 ons tetracycline AdvReac Nausea Verified 09/09/24 14:17 Review of Systems ROS Statement: Those systems with pertinent positive or pertinent negative responses have been documented in the HPI. ROS Other: All systems not noted in ROS Statement are negative. Past Medical History Past Medical History: Cancer, COPD, Deep Vein Thrombosis (DVT), Hyperlipidemia, Hypertension, Pneumonia, Sleep Apnea/CPAP/BIPAP Additional Past Medical History / Comment(s): Arthritis. seasonal allergies , breast cancer, uses cpap, bruises and scrathes on arms History of Any Multi-Drug Resistant Organisms: None Reported Past Surgical History: Appendectomy, Breast Surgery, Heart Catheterization, Joint Replacement, Orthopedic Surgery, Tonsillectomy Additional Past Surgical History / Comment(s): Hx. right cyst aspiration, left breast excisional bx. Bilateral knee replacement Past Anesthesia/Blood Transfusion Reactions: Postoperative Nausea & Vomiting (PONV) Past Psychological History: Anxiety Smoking Status: Former smoker Past Alcohol Use History: Occasional Past Drug Use History: None Reported - Past Family History Father Family Medical History: Cancer Additional Family Medical History / Comment(s): pancreatic Sister(s) Family Medical History: Cancer Additional Family Medical History / Comment(s): cervical, other sister bladder cancer General Exam - General Exam Comments Initial Comments: PHYSICAL EXAM: General Impression: Alert and oriented x3, not in acute distress HEENT: Normocephalic atraumatic, extra-ocular movements intact, pupils equal and reactive to light bilaterally, mucous membranes moist. Cardiovascular: Heart regular rate and rhythm Chest: Mildly dyspneic, diffuse rhonchi Abdomen: abdomen soft, non-tender, non-distended, no organomegaly Musculoskeletal: Pulses present and equal in all extremities, 1+ pitting edema bilaterally Motor: no focal deficits noted Neurological: CN II-XII grossly intact, no focal motor or sensory deficits noted Skin: Intact with no visualized rashes Psych: Normal affect and mood Limitations: no limitations Course Vital Signs 09/09/24 09/09/24 09/09/24 12:10 12:14 13:14 Temperature 97.5 F L Pulse Rate 76 67 62 Respiratory 18 24 22 Rate Blood Pressure 156/82 139/76 142/77 O2 Sat by Pulse 91 L 92 L Oximetry EKG Findings - EKG Comments: EKG Findings:: My EKG interpretation: Ventricular rate, sinus rhythm,. 156, QRS 101, QTc 387. No AL prolongation, no QTC prolongation, no ST or T-wave changes noted. EKG compared to October 21, 2023 showing no changes. Overall, this EKG is unremarkable Medical Decision Making - Medical Decision Making Was pt. sent in by a medical professional or institution (, PA, COMMISSIONING EDITOR, urgent care, hospital, or detention...) When possible be specific @ -No Did you speak to anyone other than the patient for history (EMS, parent, family, police, friend...)? What history was obtained from this source @ -No Did you review nursing and triage notes (agree or disagree)? Why? @ -I reviewed and agree with nursing and triage notes Were old charts reviewed (outside hosp., previous admission, EMS record, old EKG, old radiological studies, urgent care reports/EKG's, detention records)? Report findings @ -No old charts were reviewed Differential Diagnosis (chest pain, altered mental status, abdominal pain women, abdominal pain men, vaginal bleeding, musculoskeletal, weakness, fever, dyspnea, syncope, headache, dizziness, GI bleed, back pain, seizure, CVA, palpatations, mental health)? @ -Differential Dyspnea: Coronary syndrome, arrhythmia, tamponade, asthma, COPD, pulmonary embolism, pneumonia, pneumothorax, pulmonary effusion, anaphylaxis, diabetic ketoacidosis, flailed chest, pulmonary contusion, diaphragmatic rupture, anemia, neuromuscular, this is not meant to be an all-inclusive list. EKG interpreted by me (3pts min.). @ -See above X-rays interpreted by me (1pt min.). @ -Chest x-ray is nonacute CT interpreted by me (1pt min.). @ -None done U/S interpreted by me (1pt. min.). @ -None done What testing was considered but not performed or refused? (CT, X-rays, U/S, labs)? Why? @ -None What meds were considered but not given or refused? Why? @ -None Was smoking cessation discussed for >3mins.? @ -No Were there social determinants of health that impacted care today? How? (Homelessness, low income, unemployed, alcoholism, drug addiction, transportation, low edu. Level, literacy, decrease access to med. care, group home, rehab)? @ -No Was there de-escalation of care discussed even if they declined (Discuss DNR or withdrawal of care, Hospice)? DNR status @ -No What co-morbidities impacted this encounter? (DM, HTN, Smoking, COPD, CAD, Cancer, CVA, ARF, Chemo, Hep., AIDS, mental health diagnosis, sleep apnea, morbid obesity)? @ -COPD, cardiac history Was patient admitted / discharged? Hospital course, mention meds given and route, prescriptions, significant lab abnormalities, going to OR and other pertinent info. @ -73-year-old female with cardiopulmonary comorbidities presents to the ER for exertional dyspnea. Vital signs upon arrival are within acceptable limits. Patient has rhonchorous lungs diffusely. She does however have an exertional component raising suspicion of acute coronary syndrome. Laboratory evaluation obtained. Elevated troponin 0.079. BNP of 822. Rest of labs within acceptable limits. X-ray is nonacute. Patient given COPD meds, aspirin and started on he jackeline. Patient will be admitted for NSTEMI and COPD exacerbation. Case discussed with hospitalist for admission. Cardiology consulted. Did you discuss the management of the patient with other professionals (professionals i.e. , PA, COMMISSIONING EDITOR, lab, RT, psych nurse, licensed master social worker, lawyer criminal, teacher, aeronautical engineering officer, rehabilitation caseworker)? Give summary @ -See above Was critical care preformed (if so, how long)? @ -Yes, 33 minutes for management of acute coronary syndrome Undiagnosed new problem with uncertain prognosis? @ -No Drug Therapy requiring intensive monitoring for toxicity (Heparin, Nitro, Insuli n, Cardizem)? @ -No Were any procedures done? @ -No Diagnosis/symptom? Acute, or Chronic, or Acute on Chronic? Uncomplicated (without systemic symptoms) or Complicated (systemic symptoms)? @ -NSTEMI Side effects of treatment? @ -No Exacerbation, Progression, or Severe Exacerbation? @ -No Poses a threat to life or bodily function? How? (Chest pain, [place], [place], pneumonia, PE, COPD, DKA, ARF, appy, cholecystitis, CVA, Diverticulitis, Homicidal, Suicidal, threat to staff... and all critical care pts) @ -yes - Lab Data Result diagrams: 09/09/24 12:56 09/09/24 12:56 Lab Results 09/09/24 09/09/24 09/09/24 Range/Units 12:56 12:56 12:56 WBC 8.0 (3.8-10.6) k/uL RBC 4.63 (3.80-5.40) m/uL Hgb 13.4 (11.4-16.0) gm/dL Hct 43.7 (34.0-46.0) % MCV 94.3 (80.0-100.0) fL MCH 28.9 (25.0-35.0) pg MCHC 30.7 L (31.0-37.0) g/dL RDW 14.7 (11.5-15.5) % Plt Count 189 (150-450) k/uL MPV 7.2 Neutrophils % 81 % Lymphocytes % 12 % Monocytes % 5 % Eosinophils % 1 % Basophils % 1 % Neutrophils # 6.4 (1.3-7.7) k/uL Lymphocytes # 1.0 (1.0-4.8) k/uL Monocytes # 0.4 (0-1.0) k/uL Eosinophils # 0.0 (0-0.7) k/uL Basophils # 0.0 (0-0.2) k/uL Hypochromasia Slight Sodium 137 (137-145) mmol/L Potassium 4.1 (3.5-5.1) mmol/L Chloride 101 (98-107) mmol/L Carbon Dioxide 27 (22-30) mmol/L Anion Gap 9 mmol/L BUN 19 H (7-17) mg/dL Creatinine 0.90 (0.52-1.04) mg/dL Est GFR (CKD-EPI)AfAm 73 (>60 ml/min/1.73 sqM) Est GFR (CKD-EPI)NonAf 63 (>60 ml/min/1.73 sqM) Glucose 121 H (74-99) mg/dL Calcium 9.6 (8.4-10.2) mg/dL Total Bilirubin 0.7 (0.2-1.3) mg/dL AST 24 (14-36) U/L ALT 18 (4-34) U/L Alkaline Phosphatase 85 (38-126) U/L Troponin I 0.079 H* (0.000-0.034) ng/mL NT-Pro-B Natriuret Pep 822 pg/mL Total Protein 7.0 (6.3-8.2) g/dL Albumin 4.3 (3.5-5.0) g/dL Influenza Type A (PCR) (Not Detectd) Influenza Type B (PCR) (Not Detectd) RSV (PCR) (Not Detectd) SARS-CoV-2 (PCR) (Not Detectd) 09/09/24 Range/Units 12:56 WBC (3.8-10.6) k/uL RBC (3.80-5.40) m/uL Hgb (11.4-16.0) gm/dL Hct (34.0-46.0) % MCV (80.0-100.0) fL MCH (25.0-35.0) pg MCHC (31.0-37.0) g/dL RDW (11.5-15.5) % Plt Count (150-450) k/uL MPV Neutrophils % % Lymphocytes % % Monocytes % % Eosinophils % % Basophils % % Neutrophils # (1.3-7.7) k/uL Lymphocytes # (1.0-4.8) k/uL Monocytes # (0-1.0) k/uL Eosinophils # (0-0.7) k/uL Basophils # (0-0.2) k/uL Hypochromasia Sodium (137-145) mmol/L Potassium (3.5-5.1) mmol/L Chloride (98-107) mmol/L Carbon Dioxide (22-30) mmol/L Anion Gap mmol/L BUN (7-17) mg/dL Creatinine (0.52-1.04) mg/dL Est GFR (CKD-EPI)AfAm (>60 ml/min/1.73 sqM) Est GFR (CKD-EPI)NonAf (>60 ml/min/1.73 sqM) Glucose (74-99) mg/dL Calcium (8.4-10.2) mg/dL Total Bilirubin (0.2-1.3) mg/dL AST (14-36) U/L ALT (4-34) U/L Alkaline Phosphatase (38-126) U/L Troponin I (0.000-0.034) ng/mL NT-Pro-B Natriuret Pep pg/mL Total Protein (6.3-8.2) g/dL Albumin (3.5-5.0) g/dL Influenza Type A (PCR) Not Detected (Not Detectd) Influenza Type B (PCR) Not Detected (Not Detectd) RSV (PCR) Not Detected (Not Detectd) SARS-CoV-2 (PCR) Not Detected (Not Detectd) Disposition Clinical Impression: NSTEMI (non-ST elevated myocardial infarction), COPD exacerbation Disposition: ADMITTED IP TO THIS HOSP Condition: Critical Referrals: Major Nazario MD [Primary Care Provider] - 1-2 days Decision Time: 14:42
[2024-09-09 13:07] LABS: Basophils % (A) 1 %; Eosinophils % (A) 1 %; HCT 43.7 % (34.0-46.0); HGB 13.4 gm/dL (11.4-16.0); Hypochromasia Slight; Lymphocytes % (A) 12 %; MCH 28.9 pg (25.0-35.0); MCHC 30.7 g/dL (31.0-37.0); MCV 94.3 fL (80.0-100.0); Mean Platelet Volume 7.2; Monocytes # (A) 0.4 k/uL (0-1.0); Monocytes % (A) 5 %; Neutrophils # (A) 6.4 k/uL (1.3-7.7); Neutrophils % (A) 81 %; Platelet Count 189 k/uL (150-450); RBC 4.63 m/uL (3.80-5.40); RDW 14.7 % (11.5-15.5)
[2024-09-09 13:29] LABS: ALT 18 U/L (4-34); AST 24 U/L (14-36); African American GFR (CKD) 73 (>60 ml/min/1.73 sqM); Albumin 4.3 g/dL (3.5-5.0); Alkaline Phosphatase 85 U/L (38-126); Anion Gap 9 mmol/L; Blood Urea Nitrogen 19 mg/dL (7-17); Calcium 9.6 mg/dL (8.4-10.2); Carbon Dioxide 27 mmol/L (22-30); Chloride 101 mmol/L (98-107); Glucose 121 mg/dL (74-99); Non-African American GFR(CKD) 63 (>60 ml/min/1.73 sqM); Potassium 4.1 mmol/L (3.5-5.1); Sodium 137 mmol/L (137-145); Total Bilirubin 0.7 mg/dL (0.2-1.3)
[2024-09-09 13:38] LABS: NT-Pro-B-Type Natriuretic Pept 822 pg/mL
--- NOTE | 2024-09-09 13:38 | XR ---
EXAMINATION TYPE: XR chest 2V DATE OF EXAM: 09/09/2024 1:10 PM COMPARISON: Chest radiographs from 03/13/2024 CLINICAL INDICATION: Female, 73 years old with history of dyspnea; [facility] TECHNIQUE: XR chest 2V Frontal and lateral views of the chest. FINDINGS: Lungs/Pleura: There is flattening of the diaphragm with increased lucency of the lungs. No evidence o f pneumothorax, pleural effusion or focal consolidation. Pulmonary vascularity: Pulmonary vascular congestion. Heart/mediastinum: Cardiomediastinal silhouette is enlarged and stable. Musculoskeletal: No acute osseous pathology. IMPRESSION: 1. No acute cardiopulmonary disease process. 2. COPD changes. [facility], , 09/09/2024 1:36 PM
[2024-09-09 13:44] LABS: Influenza A Not Detected (Not Detectd); Influenza B Not Detected (Not Detectd); RSV Not Detected (Not Detectd)
[2024-09-09] MEDS: DEXAMETHASONE SOD PHOSPHATE 10 MG/ML 1 ML VIAL IV STA (14:18)
[2024-09-09] MEDS: ASPIRIN 81 MG PO STA (14:18)
[2024-09-09] MEDS ORDERED: HYDROcodone/APAP 5-325MG 1 EACH TAB PO PRN (14:27)
[2024-09-09] MEDS ORDERED: ONDANSETRON 4 MG/2 ML VIAL IVP PRN (14:27)
[2024-09-09] MEDS ORDERED: MELATONIN 3 MG TABLET PO PRN (14:27)
[2024-09-09] MEDS ORDERED: NALOXONE 0.4 MG/ML 1 ML VIAL IVP PRN (14:27)
[2024-09-09] MEDS ORDERED: ACETAMINOPHEN TAB 325 MG TAB PO PRN (14:27)
[2024-09-09] MEDS ORDERED: FUROSEMIDE 20 MG TAB PO PRN (14:30)
[2024-09-09] MEDS ORDERED: guaiFENesin 600 MG TABLET.ER PO PRN (14:30)
[2024-09-09] MEDS: IPRATROPIUM-ALBUTEROL 3 ML NEB INHALATION STA (14:46)
[2024-09-09] MEDS: HEPARIN SOD,PORK IN 0.45% NACL 25,000 UNIT in 0.45% NACL 1 250ML.BAG IV SCH (14:59)
--- NOTE | 2024-09-09 16:02 | P.HPIM ---
History of Present Illness H&P Date: 09/09/24 History of Presenting Illness: Patient is a pleasant 73-year-old female with a past medical history of COPD not home oxygen dependent, obstructive sleep apnea CPAP dependent nightly, hypertension, hyperlipidemia, DVT, and breast cancer status post bilateral mastectomy 12/2023. She reports she follows with PCP Dr. Nazario, Dr. 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 Lieberman. She presented to the emergency department with a chief complaint of shortness of breath. She reports beginning to feel exertional dyspnea over the past couple days that she reports is rapidly worsened. Patient reports it has been accompanied by a productive cough of white sputum. She states shortness of breath was initially only with exertion but today just sitting at the kitchen table to drink a couple coffee she was experiencing conversational dyspnea and shortness of breath at rest so she told her she need to go to the hospital to be evaluated. She denies having any fevers, chills, diaphoresis, headache, lightheadedness, dizziness, chest pain, palpitations, abdominal pain, nausea, vomiting, or experiencing any increased swelling in her lower extremities. Upon arrival to our facility, patient underwent evaluation in the emergency department. Vital signs upon arrival show blood pressure 156/82, heart rate 76, respiratory rate 18, temp 97.5 F, and SpO2 of 91% on room air. EKG was completed showing sinus mechanism at 72 bpm with an incomplete right bundle branch block upon personal review and interpretation. Chest x-ray completed negative for acute cardiopulmonary process showing COPD changes with flattening of the diaphragm and increased lucency of lungs. Labs completed and reviewed. CBC unremarkable. BMP showing mild prerenal azotemia with BUN of 19. Blood glucose 121. Calcium 9.6. Liver profile unremarkable. Troponin was elevated at 0.079 with proBNP of 822. Influenza A, influenza B, RSV, and COVID PCR were negative. Patient started on heparin infusion for treatment of NSTEMI and admitted under our services with consultation to cardiology. Review of systems: Pertinent positives and negatives as discussed in HPI, a complete review of sy stems was performed and all other systems are negative. Physical exam: Vital signs reviewed and stable. General: Nontoxic, no distress and appears stated age. Morbidly obese. Derm: Skin warm and dry, normal coloration for ethnicity. Head: Atraumatic, normocephalic and symmetric. Eyes: EOM's intact, no lid lag, and anicteric sclera Mouth: no lip lesions, mucus membranes moist Cardiovascular: regular rate and rhythm with normal S1S2, no murmur, positive posterior tibial pulses bilaterally, and cap refill < 2 seconds. Lungs: Respirations even, regular, and unlabored on 2 L O2 via nasal cannula. Lungs diminished, no rhonchi, no rales, no wheezing, and no accessory muscle usage. Bilateral vasectomy Abdominal: soft, nontender to palpation, no guarding, no appreciable organomegaly Ext: ROM intact. No gross muscle atrophy, bilateral lower extremity edema and venous stasis discoloration Neuro: Speech clear, face symmetrical and CN II-XII grossly intact with no noted focal neuro deficits Psych: Alert and oriented to person, place, time, and situation. Appropriate and pleasant affect. Assessment and Plan of Care: NSTEMI Exertional dyspnea, likely secondary to above -Cardiology consulted, appreciate recommendations -Continue low intensity heparin infusion for treatment of NSTEMI with close monitoring of PTT for goal therapeutic range of 45 to 79 seconds. -Telemetry monitoring -Trend troponins -Cardiac diet, NPO at midnight -Continue cardiac medication regimen with aspirin 81 mg daily, atorvastatin 80 mg daily, hydrochlorothiazide 25 mg daily, and valsartan 320 mg daily. -Lipid profile with a.m. labs. -Echocardiogram COPD with mild exacerbation, likely secondary to above -Continue supplemental oxygen as needed to maintain SpO2 equal to or greater than 92%. Wean as patient tolerates. -Patient received Decadron 10 mg IVP x 1 dose in the emergency department. -Continue Symbicort 160-4.5 mcg inhaler 2 puffs twice daily and albuterol nebulizer treatments 2.5 mcg every 4 hours as needed for shortness of breath and/or wheezing. Obstructive sleep apnea -Continue CPAP nightly and while napping. Hypertension -Monitor vital signs and continue daily medication regimen with hydrochlorothiazide 25 mg daily and valsartan 320 mg daily. Hyperlipidemia -Continue atorvastatin 80 mg daily. Breast cancer status post bilateral mastectomy -Continue outpatient follow-ups and scheduled yearly cancer screenings. Data and imaging reviewed: -As stated above in HPI The patient is admitted with an anticipated greater than 2 midnight stay for evaluation of NSTEMI CODE STATUS: Full code DVT prophylaxis: Low intensity heparin infusion Discussed with: Patient, patient's at bedside, RN, and ED physician Anticipated discharge date: Pending clinical course Anticipated discharge place: Pending clinical course Patient was seen independently by Nurse Practitioner. This document was prepared using [email or web address] dictation software. Please allow for errors in machine puller over while rare they do occur. Jarred Delgado NP rendered care for this patient independently, reviewed the fi ndings and plan as documented in the note above and agree with plan. I did not physically speak with or examine the patient on this date. Past Medical History Past Medical History: Cancer, COPD, Deep Vein Thrombosis (DVT), Hyperlipidemia, Hypertension, Pneumonia, Sleep Apnea/CPAP/BIPAP Additional Past Medical History / Comment(s): Arthritis. seasonal allergies , breast cancer, uses cpap, bruises and scrathes on arms History of Any Multi-Drug Resistant Organisms: None Reported Past Surgical History: Appendectomy, Breast Surgery, Heart Catheterization, Joint Replacement, Orthopedic Surgery, Tonsillectomy Additional Past Surgical History / Comment(s): Hx. right cyst aspiration, left breast excisional bx. Bilateral knee replacement Past Anesthesia/Blood Transfusion Reactions: Postoperative Nausea & Vomiting (PONV) Past Psychological History: Anxiety Smoking Status: Former smoker Past Alcohol Use History: Occasional Past Drug Use History: None Reported - Past Family History Father Family Medical History: Cancer Additional Family Medical History / Comment(s): pancreatic Sister(s) Family Medical History: Cancer Additional Family Medical History / Comment(s): cervical, other sister bladder cancer Medications and Allergies Home Medications Medication Instructions Recorded Confirmed Type Naproxen Sodium [Aleve] 220 mg PO DAILY PRN 05/06/18 09/09/24 History PARoxetine [Paxil] 20 mg PO HS 05/06/18 09/09/24 History Simvastatin [Zocor] 40 mg PO Q2D@2100 05/06/18 09/09/24 History Albuterol Inhaler [Ventolin Hfa 2 puff INHALATION RT-QID PRN 10/21/23 09/09/24 History Inhaler] Melatonin 3 mg PO HS 10/21/23 09/09/24 History Budesonide-Formot 160-4.5 Mcg 2 puff INHALATION RT-BID #1 each 10/26/23 09/09/24 Rx [Symbicort 160-4.5 Mcg Inhaler] Valsartan/Hydrochlorothiazide 1 tab PO DAILY 01/21/24 09/09/24 History [Valsartan-Hctz 320-25 mg Tab] Acetaminophen Tab [Tylenol] 650 mg PO Q6H PRN 03/20/24 09/09/24 History guaiFENesin [Mucinex] 600 tab PO BID PRN 03/20/24 09/09/24 History Cholecalciferol (Vitamin D3) 50 mcg PO HS 09/09/24 09/09/24 History [Vitamin D3 (50 Mcg = 2000 Iu)] Furosemide [Lasix] 20 mg PO DAILY PRN 09/09/24 09/09/24 History Allergies Allergy/AdvReac Type Severity Reaction Status Date / Time acetaminophen [From NyQuil] Allergy Dyspnea Verified 09/09/24 14:17 dextromethorphan Allergy Dyspnea Verified 09/09/24 14:17 [From NyQuil] doxylamine [From NyQuil] Allergy Dyspnea Verified 09/09/24 14:17 pseudoephedrine [From NyQuil] Allergy Dyspnea Verified 09/09/24 14:17 methocarbamol [From Robaxin] AdvReac Hallucinati Verified 09/09/24 14:17 ons tetracycline AdvReac Nausea Verified 09/09/24 14:17 Physical Exam Vitals: Vital Signs Temp Pulse Resp BP Pulse Ox 09/09/24 14:57 68 09/09/24 14:46 67 09/09/24 13:14 62 22 142/77 09/09/24 12:14 67 24 139/76 92 L 09/09/24 12:10 97.5 F L 76 18 156/82 91 L Intake and Output 09/09/24 09/09/24 09/09/24 06:59 14:59 22:59 Other: Weight 136.078 kg Results CBC & Chem 7: 09/09/24 12:56 09/09/24 12:56 Labs: Abnormal Lab Results - Last 24 Hours (Table) 09/09/24 09/09/24 09/09/24 Range/Units 12:56 12:56 12:56 MCHC 30.7 L (31.0-37.0) g/dL BUN 19 H (7-17) mg/dL Glucose 121 H (74-99) mg/dL Troponin I 0.079 H* (0.000-0.034) ng/mL
[2024-09-09] MEDS: ALBUTEROL NEBULIZED 2.5 MG/3 ML INHALATION PRN (19:36)
[2024-09-09] MEDS: SYMBICORT 160-4.5 MCG INHALER INHALATION SCH (19:48)
[2024-09-09] MEDS: NITROGLYCERIN-D5W PMX 50 MG in DEXTROSE/WATER 1 250ML.BAG IV SCH (19:58)
[2024-09-09] MEDS: MELATONIN 3 MG TABLET PO SCH (21:46)
[2024-09-09] MEDS: METOPROLOL SUCCINATE (ER) 25 MG TAB.ER.24H PO SCH (21:46)
[2024-09-09] MEDS: PARoxetine 20 MG TAB PO SCH (21:46)
[2024-09-09] MEDS: ATORVASTATIN 40 MG TAB PO STA (21:46)
--- NOTE | 2024-09-10 02:06 | CT ---
EXAM: CT Angiography Chest With Intravenous Contrast CLINICAL HISTORY: ITS.REASON CT Reason: r/o PE TECHNIQUE: Axial computed tomographic angiography images of the chest with intravenous contrast. CTDI is 54.1 mGy and DLP is 1277.6 mGy-cm. This CT exam was performed using one or more of the following dose reduction techniques: automated exposure control, adjustment of the mA and/or kV according to patient size, and/or use of iterative reconstruction technique. MIP reconstructed images were created and reviewed. COMPARISON: No relevant prior studies available. FINDINGS: Pulmonary arteries: Unremarkable. No pulmonary embolism. Aorta: Atherosclerotic changes of the aorta. No thoracic aortic aneurysm. Lungs: Atelectasis in the upper lung cruz. No mass. Pleural space: Unremarkable. No significant effusion. No pneumothorax. Heart: Cardiomegaly. No significant pericardial effusion. No evidence of RV dysfunction. Mediastinum: Small hiatal hernia. Bones/joints: Degenerative changes of the spine. No acute fracture. No dislocation. Soft tissues: Unremarkable. Lymph nodes: Unremarkable. No enlarged lymph nodes. IMPRESSION: No pulmonary embolism.
[2024-09-10] MEDS: IPRATROPIUM-ALBUTEROL 3 ML NEB INHALATION STA (04:21)
[2024-09-10] MEDS ORDERED: IPRATROPIUM-ALBUTEROL 3 ML NEB INHALATION PRN (04:34)
[2024-09-10] MEDS: methylPREDNISolone SOD SUCCI 125 MG/2 ML VIAL IV STA (04:52)
--- NOTE | 2024-09-10 06:04 | P.CNPUL ---
History of Present Illness Consult date: 09/10/24 Requesting physician: Barbara Rivera Reason for consult: COPD Chief complaint: Shortness of breath History of present illness: Patient is a 73-year-old female with past medical history significant for breast cancer status post bilateral mastectomy, DVT, hyperlipidemia, hypertension, former tobacco smoker, COPD, morbid obesity, obstructive sleep apnea with CPAP. Presents to the emergency department yesterday afternoon with a chief complaint of progressively worsening shortness of breath over the last 72 hours. She is chronically short of breath, especially with exertion, this is worsened since Sunday. Patient is known to have asthma/copd. Maintained on Symbicort outpatient basis. Does endorse occasional nonproductive cough, runny nose, previous sore throat earlier in the week. States has been sick with similar symptoms. Denies fevers or chills. No significant sputum production, hemoptysis, chest pain. Denies nausea, vomiting, diarrhea. Appetite has been fair. Viral screen was negative for influenza A/B, RSV, COVID. Denies any chest pain. Does have some bilateral lower extremity swelling. Chest CTA performed earlier this morning did not show any evidence of filling defects consistent with pulmonary embolism. No acute parenchymal process. Troponins were elevated at 0.079, 0.37, and 0.47 respectively. EKG: atrial rhythm, rate 72 bpm, minimal ST depressions. Cardiology is consulted. Patient previously started on IV heparin per protocol. CBC: WBC count 8, hemoglobin 13.4, platelets 189. Most recent aPTT 38. CMP: Sodium 137, potassium 4.1, chloride 101, serum bicarb 27, BUN 19, creatinine 0.9, glucose 121. LFTs not elevated. NT proBNP 822. Patient currently being evaluated in the emergency department. She is alert and fully oriented. CPAP is in the room and used at night. Currently, on 3 L/min nasal cannula. Non-labored breathing. Bilateral expiratory wheezes heard on auscultation. Heart rate is bradycardic, around 48 bpm. Blood pressure normotensive. Review of Systems Constitutional: Reports fatigue, Reports weight gain, Denies chills, Denies fever, Denies poor appetite, Denies sweats, Denies weight loss Ears, nose, mouth and throat: Reports nasal congestion, Reports nasal discharge, Reports post-nasal drip, Reports sore throat, Denies headache, Denies sinus pain, Denies sinus pressure Cardiovascular: Reports dyspnea on exertion, Reports leg edema, Denies chest pain, Denies lightheadedness, Denies orthopnea, Denies palpitations, Denies p aroxysmal nocturnal dyspnea, Denies syncope Respiratory: Reports congestion, Reports cough, Denies cough with sputum, Denies hemoptysis, Denies home oxygen Gastrointestinal: Denies abdominal pain, Denies change in bowel habits, Denies diarrhea, Denies hematemesis, Denies hematochezia, Denies loss of appetite, Denies melena, Denies nausea, Denies vomiting Genitourinary: Denies dysuria Musculoskeletal: Denies limitation of motion Integumentary: Denies rash, Denies unusual bruising Neurological: Denies head injury, Denies headaches, Denies seizures, Denies syncope Psychiatric: Denies anxiety, Denies depression Past Medical History Past Medical History: Cancer, COPD, Deep Vein Thrombosis (DVT), Hyperlipidemia, Hypertension, Pneumonia, Sleep Apnea/CPAP/BIPAP Additional Past Medical History / Comment(s): Arthritis. seasonal allergies , breast cancer, uses cpap, bruises and scrathes on arms, DVT during History of Any Multi-Drug Resistant Organisms: None Reported Past Surgical History: Appendectomy, Breast Surgery, Heart Catheterization, Joint Replacement, Orthopedic Surgery, Tonsillectomy Additional Past Surgical History / Comment(s): Hx. right cyst aspiration, left breast excisional bx. bilateral mastectomy. Bilateral knee replacement Past Anesthesia/Blood Transfusion Reactions: Postoperative Nausea & Vomiting (PONV) Smoking Status: Former smoker - Past Family History Father Family Medical History: Cancer Additional Family Medical History / Comment(s): pancreatic Sister(s) Family Medical History: Cancer Additional Family Medical History / Comment(s): cervical, other sister bladder cancer Medications and Allergies Home Medications Medication Instructions Recorded Confirmed Type Naproxen Sodium [Aleve] 220 mg PO DAILY PRN 05/06/18 09/09/24 History PARoxetine [Paxil] 20 mg PO HS 05/06/18 09/09/24 History Simvastatin [Zocor] 40 mg PO Q2D@2100 05/06/18 09/09/24 History Albuterol Inhaler [Ventolin Hfa 2 puff INHALATION RT-QID PRN 10/21/23 09/09/24 History Inhaler] Melatonin 3 mg PO HS 10/21/23 09/09/24 History Budesonide-Formot 160-4.5 Mcg 2 puff INHALATION RT-BID #1 each 10/26/23 09/09/24 Rx [Symbicort 160-4.5 Mcg Inhaler] Valsartan/Hydrochlorothiazide 1 tab PO DAILY 01/21/24 09/09/24 History [Valsartan-Hctz 320-25 mg Tab] Acetaminophen Tab [Tylenol] 650 mg PO Q6H PRN 03/20/24 09/09/24 History guaiFENesin [Mucinex] 600 tab PO BID PRN 03/20/24 09/09/24 History Cholecalciferol (Vitamin D3) 50 mcg PO HS 09/09/24 09/09/24 History [Vitamin D3 (50 Mcg = 2000 Iu)] Furosemide [Lasix] 20 mg PO DAILY PRN 09/09/24 09/09/24 History Allergies Allergy/AdvReac Type Severity Reaction Status Date / Time acetaminophen [From NyQuil] Allergy Dyspnea Verified 09/09/24 14:17 dextromethorphan Allergy Dyspnea Verified 09/09/24 14:17 [From NyQuil] doxylamine [From NyQuil] Allergy Dyspnea Verified 09/09/24 14:17 pseudoephedrine [From NyQuil] Allergy Dyspnea Verified 09/09/24 14:17 methocarbamol [From Robaxin] AdvReac Hallucinati Verified 09/09/24 14:17 ons tetracycline AdvReac Nausea Verified 09/09/24 14:17 Physical Exam Vitals: Vital Signs Temp Pulse Pulse Resp BP BP Pulse Ox 09/10/24 00:00 48 L 23 115/103 96 09/09/24 21:44 70 20 150/83 94 L 09/09/24 21:25 95 09/09/24 20:16 35 H 95 09/09/24 19:58 76 18 116/83 95 09/09/24 19:36 70 09/09/24 18:18 68 22 125/78 95 09/09/24 16:29 97.7 F 66 18 143/87 93 L 09/09/24 14:57 68 09/09/24 14:46 67 09/09/24 13:14 62 22 142/77 09/09/24 12:14 67 24 139/76 92 L 09/09/24 12:10 97.5 F L 76 18 156/82 91 L Intake and Output 09/09/24 09/09/24 09/10/24 14:59 22:59 06:59 Other: Voiding Method External Catheter Weight 136.078 kg 136.078 kg GENERAL EXAM: Alert, morbidly obese 73-year-old female, on 3 L/min nasal cannula, nonlabored breathing, comfortable in no apparent distress. CPAP is in the room and on standby HEAD: Normocephalic and atraumatic EYES: Normal reaction of pupils, equal size. NOSE: Clear with pink turbinates. THROAT: No erythema or exudates. NECK: No masses, no JVD. CHEST: No chest wall deformity. LUNGS: Equal air entry with expiratory wheezing heard bilaterally throughout. No conversational dyspnea or accessory muscle use while at rest CVS: S1 and S2 normal with no audible murmur, regular rhythm. No extra heart marcell nds ABDOMEN: No hepatosplenomegaly, active bowel sounds, no guarding or rigidity. SPINE: No scoliosis or deformity SKIN: No rashes CENTRAL NERVOUS SYSTEM: No focal deficits, tone is normal in all 4 extremities. EXTREMITIES: There is bilateral lower extremity 1+ pitting edema. clubbing, or cyanosis. Peripheral pulses are intact. Results - Laboratory Findings CBC and BMP: 09/10/24 05:43 09/10/24 05:43 Abnormal lab findings: Abnormal Labs 09/09/24 09/09/24 09/09/24 12:56 12:56 12:56 MCHC 30.7 L APTT BUN 19 H Glucose 121 H Troponin I 0.079 H* 09/09/24 09/09/24 09/09/24 16:05 18:38 20:59 MCHC APTT 38.1 H BUN Glucose Troponin I 0.374 H* 0.468 H* - Diagnostic Findings Chest x-ray: image reviewed CT scan - chest: image reviewed Assessment and Plan Assessment: Acute asthma/COPD exacerbation Acute non-ST segment elevation myocardial infarction, elevated troponins, rule out non-ST elevation ND, currently on IV heparin per protocol Acute hypoxemic respiratory failure, secondary to above, chest x-ray does not show any acute cardiopulmonary process. CT of the chest showed no evidence of any pulmonary embolism Bradycardia, asymptomatic, junctional bradycardia. Remains hemodynamically stable CHF with impaired LV function with an ejection fraction of 35%. Repeat echocardiogram was ordered Hypertension History of hyperlipidemia Severe obstructive sleep apnea, maintained on CPAP with pressure of 16 cm H20 on outpatient basis Morbid obesity, with a BMI of 48.8 kg/m History of DVT History of breast cancer with previous bilateral mastectomy Plan: Patient's medications, labs, imaging reviewed Continue combination of duo nebs, Symbicort inhaler and add IV Solu-Medrol. Viral 4 Plex unremarkable for influenza, RSV, COVID Continue CPAP at bedtime, with a pressure support of 16 cm H2O Continues on IV heparin per protocol, awaiting further recommendations from cardiology. Transthoracic echocardiogram pending we will continue to follow I have personally seen and examined the patient, performed the documentation and the assessment and plan as written. Number of minutes spent on the visit:20 This is a joint evaluation that was done along with the nurse practitioner. This evaluation was done and 33 minutes. The patient was seen in the emergency department. The patient presented to the hospital complaining of progressive dyspnea. No reported chest pain. She had a nonproductive cough. She is known to have COPD and obstructive sleep apnea maintained on CPAP therapy on outpatient basis at a pressure of 16 cm of water. She also has CHF with an ejection fraction of 35%, hypertension hyperlipidemia and previous history of breast cancer the patient undergone bilateral mastectomy. Initial workup in the hospital showed a negative viral screen. CT of the chest was done that showed no evidence of any filling defects and there was no acute cardiopulmonary process. Troponins were elevated and EKG was showing a junctional rhythm with bradycardia. Troponins were 0.07, 0.3 and 0.4 respectively. Based on that, the patient was started on IV heparin and seen by cardiology. She is going to need a cardiac catheterization at a later stage. Echocardiogram was also ordered. In terms of her COPD exacerbation, the patient was placed on Symbicort, DuoNeb treatments [id number] and IV Solu-Medrol 60 mg every 6 hours. Rest of the home medications have been also resumed. She is on valsartan 320 mg p.o. daily and hydrochlorothiazide 25 mg p.o. daily. She is also on aspirin. The white cell count is not elevated. Rest of the electrolytes and renal function essentially within normal limits. Time with Patient: Greater than 30
[2024-09-10 06:12] LABS: HCT 44.5 % (34.0-46.0); HGB 13.8 gm/dL (11.4-16.0); MCH 29.1 pg (25.0-35.0); MCV 93.8 fL (80.0-100.0); Mean Platelet Volume 7.5; Platelet Count 191 k/uL (150-450); RBC 4.74 m/uL (3.80-5.40); RDW 14.6 % (11.5-15.5); WBC 4.9 k/uL (3.8-10.6)
[2024-09-10] MEDS: PANTOPRAZOLE 40 MG TABLET PO SCH (06:23)
[2024-09-10] MEDS: methylPREDNISolone SOD SUCCI 125 MG/2 ML VIAL IV SCH (06:23)
[2024-09-10 07:11] LABS: African American GFR (CKD) 81 (>60 ml/min/1.73 sqM); Anion Gap 9 mmol/L; Blood Urea Nitrogen 20 mg/dL (7-17); Calcium 9.6 mg/dL (8.4-10.2); Carbon Dioxide 27 mmol/L (22-30); Chloride 101 mmol/L (98-107); Glucose 134 mg/dL (74-99); Magnesium 2.1 mg/dL (1.6-2.3); Non-African American GFR(CKD) 70 (>60 ml/min/1.73 sqM); Potassium 4.1 mmol/L (3.5-5.1); Sodium 137 mmol/L (137-145)
[2024-09-10] MEDS: ATORVASTATIN 80 MG TAB PO SCH (08:42)
[2024-09-10] MEDS: ASPIRIN 81 MG PO SCH (08:42)
[2024-09-10] MEDS: hydroCHLOROthiazide 25 MG TAB PO SCH (08:42)
[2024-09-10] MEDS: NITROGLYCERIN OINT 1 INCH/GM PACKET TOPICAL SCH ×2 (08:42→11:21)
[2024-09-10] MEDS: VALSARTAN 160 MG TAB PO SCH (08:43)
[2024-09-10] MEDS ORDERED: ENOXAPARIN 40 MG/0.4 ML SYRINGE SQ SCH (09:00)
--- NOTE | 2024-09-10 10:56 | P.CRDCN ---
History of Present Illness Consult date: 09/10/24 Reason for Consult (text): NSTEMI History of present illness: This is a 73-year-old female patient of Dr. Sargent with past medical history of breast cancer status post bilateral mastectomy and dehiscence, cardiomyopathy with EF of 35%, hypertension, dyslipidemia, obstructive sleep apnea on CPAP, remote history of tobacco use. We have been asked to evaluate the patient for NSTEMI. Patient states that she came into the hospital due to shortness of breath that had been worsening. She also had dyspnea on exertion and was unable to walk even a short distance or stand up. All of this has been gradually worsening over the last couple of days. She complains of cough with white sputum production. No fever or chills. No chest pain. Blood pressure 141/73, heart rate 49, pulse ox 95% on CPAP. Patient is seen today in the emergency center waiting for bed on the cardiac stepdown unit. Dr. Null discussed with the patient that recommendations are for cardiac catheterization once her shortness of breath is improved and she is able to lay flat. -EKG: Sinus rhythm with nonspecific ST changes. -Chest x-ray: No acute process. -CTA chest: No pulmonary embolism. -Laboratory studies: CBC electrolytes within normal limits. BUN 20 creatinine 0.82. Troponin 0.079, 0.374 and 0.468. proBNP 822. Cepheid viral panel not detected. -Home cardiac medications: Lasix 20 mg daily as needed, simvastatin 40 mg every 2 days, valsartan hydrochlorothiazide 320-25 mg daily. -Echocardiogram performed 02/19/2023 revealed normal EF, mild MR, mild TR, RVSP 42 mmHg. -Lexiscan stress test performed 06/06/2023: EF 52%, fixed apical defect. Review Of Systems: At the time of my exam: CONSTITUTIONAL: Denies fever or chills. HEENT: Denies blurred vision, vision changes, or eye pain. Denies hemoptysis CARDIOVASCULAR: Denies chest pain. Denies orthopnea. Denies PND. Denies palpitations RESPIRATORY: Reports shortness of breath. GASTROINTESTINAL: Denies abdominal pain. Denies nausea or vomiting. HEMATOLOGIC: Denies bleeding disorders. GENITOURINARY: Denies any blood in urine. SKIN: Denies puritis. Denies rash. Physical examination: Gen: This is a 73-year-old female appears to be comfortable on CPAP VS: reviewed HEENT: Head is atraumatic, normocephalic. Pupils equal, round. Sclerae is anicteric. NECK: Supple. No JVD. LUNGS: Diminished breath sounds, expiratory wheeze. No intercostal retractions. HEART: Regular rate and rhythm. Systolic ejection murmur murmur. ABDOMEN: Soft No tenderness. EXTREMITIES: Mild bilateral lower extremity edema. No calf tenderness. NEUROLOGICAL: Patient is awake, alert and oriented x3. Assessment: NSTEMI possibly due to to COPD exacerbation COPD exacerbation Obstructive sleep apnea Hypertension Hyperlipidemia History of breast cancer status post bilateral mastectomy Cardiomyopathy with EF of 35% with recovery Plan: Resume patient's home cardiac medications Patient has been started on aspirin and statin Continue heparin drip Start patient on Nitropaste Discontinue order for nitroglycerin drip as patient has not been started on this. No beta-lucia due to bradycardia Obtain 2-D echocardiogram and Doppler study to assess cardiac structure and function Continue treatment for COPD exacerbation Once patient's respiratory status is stable, patient will be scheduled for cardiac catheterization with Dr. Sargent. Further recommendations to follow based upon clinical course Thank you kindly for this consultation. Nurse practitioner note has been reviewed, I agree with documented findings and plan of care. Patient was seen and examined. Past Medical History Past Medical History: Cancer, COPD, Deep Vein Thrombosis (DVT), Hyperlipidemia, Hypertension, Pneumonia, Sleep Apnea/CPAP/BIPAP Additional Past Medical History / Comment(s): Arthritis. seasonal allergies , breast cancer, uses cpap, bruises and scrathes on arms, DVT during History of Any Multi-Drug Resistant Organisms: None Reported Past Surgical History: Appendectomy, Breast Surgery, Heart Catheterization, Joint Replacement, Orthopedic Surgery, Tonsillectomy Additional Past Surgical History / Comment(s): Hx. right cyst aspiration, left breast excisional bx. bilateral mastectomy. Bilateral knee replacement Past Anesthesia/Blood Transfusion Reactions: Postoperative Nausea & Vomiting (PONV) Smoking Status: Former smoker - Past Family History Father Family Medical History: Cancer Additional Family Medical History / Comment(s): pancreatic Sister(s) Family Medical History: Cancer Additional Family Medical History / Comment(s): cervical, other sister bladder cancer Medications and Allergies Home Medications Medication Instructions Recorded Confirmed Type Naproxen Sodium [Aleve] 220 mg PO DAILY PRN 05/06/18 09/09/24 History PARoxetine [Paxil] 20 mg PO HS 05/06/18 09/09/24 History Simvastatin [Zocor] 40 mg PO Q2D@2100 05/06/18 09/09/24 History Albuterol Inhaler [Ventolin Hfa 2 puff INHALATION RT-QID PRN 10/21/23 09/09/24 History Inhaler] Melatonin 3 mg PO HS 10/21/23 09/09/24 History Budesonide-Formot 160-4.5 Mcg 2 puff INHALATION RT-BID #1 each 10/26/23 09/09/24 Rx [Symbicort 160-4.5 Mcg Inhaler] Valsartan/Hydrochlorothiazide 1 tab PO DAILY 01/21/24 09/09/24 History [Valsartan-Hctz 320-25 mg Tab] Acetaminophen Tab [Tylenol] 650 mg PO Q6H PRN 03/20/24 09/09/24 History guaiFENesin [Mucinex] 600 tab PO BID PRN 03/20/24 09/09/24 History Cholecalciferol (Vitamin D3) 50 mcg PO HS 09/09/24 09/09/24 History [Vitamin D3 (50 Mcg = 2000 Iu)] Furosemide [Lasix] 20 mg PO DAILY PRN 09/09/24 09/09/24 History Allergies Allergy/AdvReac Type Severity Reaction Status Date / Time acetaminophen [From NyQuil] Allergy Dyspnea Verified 09/09/24 14:17 dextromethorphan Allergy Dyspnea Verified 09/09/24 14:17 [From NyQuil] doxylamine [From NyQuil] Allergy Dyspnea Verified 09/09/24 14:17 pseudoephedrine [From NyQuil] Allergy Dyspnea Verified 09/09/24 14:17 methocarbamol [From Robaxin] AdvReac Hallucinati Verified 09/09/24 14:17 ons tetracycline AdvReac Nausea Verified 09/09/24 14:17 Physical Exam Vitals: Vital Signs Temp Pulse Pulse Resp BP BP Pulse Ox 09/10/24 04:55 97.3 F L 51 L 25 H 139/72 95 09/10/24 04:34 68 09/10/24 04:24 60 09/10/24 00:00 48 L 23 115/103 96 09/09/24 21:44 70 20 150/83 94 L 09/09/24 21:25 95 09/09/24 20:16 35 H 95 09/09/24 19:58 76 18 116/83 95 09/09/24 19:36 70 09/09/24 18:18 68 22 125/78 95 09/09/24 16:29 97.7 F 66 18 143/87 93 L 09/09/24 14:57 68 09/09/24 14:46 67 09/09/24 13:14 62 22 142/77 09/09/24 12:14 67 24 139/76 92 L 09/09/24 12:10 97.5 F L 76 18 156/82 91 L Intake and Output 09/09/24 09/10/24 09/10/24 22:59 06:59 14:59 Other: Voiding Method External Catheter Weight 136.078 kg Results 09/10/24 05:43 09/10/24 05:43 Cardiac Enzymes 09/09/24 09/09/24 09/09/24 Range/Units 12:56 12:56 16:05 AST 24 (14-36) U/L Troponin I 0.079 H* 0.374 H* (0.000-0.034) ng/mL 09/09/24 Range/Units 18:38 AST (14-36) U/L Troponin I 0.468 H* (0.000-0.034) ng/mL Coagulation 09/09/24 09/10/24 Range/Units 20:59 04:49 APTT 38.1 H 57.1 H (22.0-30.0) sec CBC 09/09/24 09/10/24 Range/Units 12:56 05:43 WBC 8.0 4.9 (3.8-10.6) k/uL RBC 4.63 4.74 (3.80-5.40) m/uL Hgb 13.4 13.8 (11.4-16.0) gm/dL Hct 43.7 44.5 (34.0-46.0) % Plt Count 189 191 (150-450) k/uL Comprehensive Metabolic Panel 09/09/24 09/10/24 Range/Units 12:56 05:43 Sodium 137 137 (137-145) mmol/L Potassium 4.1 4.1 (3.5-5.1) mmol/L Chloride 101 101 (98-107) mmol/L Carbon Dioxide 27 27 (22-30) mmol/L BUN 19 H 20 H (7-17) mg/dL Creatinine 0.90 0.82 (0.52-1.04) mg/dL Glucose 121 H 134 H (74-99) mg/dL Calcium 9.6 9.6 (8.4-10.2) mg/dL AST 24 (14-36) U/L ALT 18 (4-34) U/L Alkaline Phosphatase 85 (38-126) U/L Total Protein 7.0 (6.3-8.2) g/dL Albumin 4.3 (3.5-5.0) g/dL Current Medications Generic Name Dose Route Start Last Admin Trade Name Freq PRN Reason Stop Dose Admin Acetaminophen 650 mg 09/09/24 14:27 Acetaminophen Tab 325 Mg Tab PO Q6HR PRN Mild Pain or Fever > 100.5 Hydrocodone Bitart/Acetaminophen 1 each 09/09/24 14:27 Hydrocodone/Apap 5-325mg 1 Each Tab PO Q4HR PRN Moderate Pain (Scale 4 to 6) Albuterol Sulfate 2.5 mg 09/09/24 14:30 09/09/24 19:36 Albuterol Nebulized 2.5 Mg/3 Ml INHALATION 2.5 mg RT-QID PRN Administration Shortness Of Breath Albuterol/Ipratropium 3 ml 09/10/24 04:34 Ipratropium-Albuterol 3 Ml Neb INHALATION RT-QID PRN Shortness Of Breath Or Wheezing Albuterol/Ipratropium 3 ml 09/10/24 08:00 Ipratropium-Albuterol 3 Ml Neb INHALATION RT-QID [facility] Aspirin 81 mg 09/10/24 09:00 Aspirin 81 Mg PO DAILY MANE Atorvastatin Calcium 80 mg 09/10/24 09:00 Atorvastatin 80 Mg Tab PO DAILY [facility] Budesonide/Formoterol Fumarate 2 puff 09/09/24 20:00 09/09/24 19:48 Symbicort 160-4.5 Mcg Inhaler INHALATION 2 puff RT-BID MANE Administration Guaifenesin 1 mg 09/09/24 14:30 Guaifenesin 600 Mg Tablet.Er PO BID PRN COUGH/CONGESTION Heparin Sodium (Porcine) 0 unit 09/09/24 14:38 Heparin Sodium 1,000 Un/Ml (10ml Vl) IV PER PROTOCOL PRN Low PTT Protocol Hydrochlorothiazide 25 mg 09/10/24 09:00 Hydrochlorothiazide 25 Mg Tab PO DAILY MANE Heparin Sodium/Sodium Chloride 250 mls @ 10 mls/hr 09/09/24 14:45 09/09/24 14:59 25,000 unit/ Sodium Chloride IV 7.3487 units/kg/hr .Q24H MANE 10 mls/hr Administration Protocol 7.3487 UNITS/KG/HR Nitroglycerin/Dextrose 50 mg/ 250 mls @ 1.5 mls/hr 09/09/24 19:30 09/09/24 19:58 IV Solution IV Not Given .Q24H MANE Protocol 5 MCG/MIN Melatonin 3 mg 09/09/24 14:27 Melatonin 3 Mg Tablet PO HS PRN Insomnia Melatonin 3 mg 09/09/24 21:00 09/09/24 21:46 Melatonin 3 Mg Tablet PO 3 mg HS MANE Administration Methylprednisolone Sodium Succinate 60 mg 09/10/24 06:00 09/10/24 06:23 Methylprednisolone Sod Succi 125 Mg/2 Ml Vial IV 60 mg Q6HR MANE Administration Metoprolol Succinate 25 mg 09/09/24 19:30 09/09/24 21:46 Metoprolol Succinate (Er) 25 Mg Tab.Er.24h PO 25 mg DAILY MANE Administration Naloxone HCl 0.2 mg 09/09/24 14:27 Naloxone 0.4 Mg/Ml 1 Ml Vial IVP Q2M PRN Opioid Reversal Ondansetron HCl 4 mg 09/09/24 14:27 Ondansetron 4 Mg/2 Ml Vial IVP Q8HR PRN Nausea And Vomiting Pantoprazole Sodium 40 mg 09/10/24 07:30 09/10/24 06:23 Pantoprazole 40 Mg Tablet PO 40 mg [id number] MANE Administration Paroxetine HCl 20 mg 09/09/24 21:00 09/09/24 21:46 Paroxetine 20 Mg Tab PO 20 mg HS MANE Administration Valsartan 320 mg 09/10/24 09:00 Valsartan 160 Mg Tab PO DAILY MANE Intake and Output 09/09/24 09/10/24 09/10/24 22:59 06:59 14:59 Other: Voiding Method External Catheter Weight 136.078 kg 09/10/24 05:43 09/10/24 05:43
[2024-09-10] MEDS: FUROSEMIDE 10 MG/ML 4 ML VIAL IV STA (11:20)
--- NOTE | 2024-09-10 13:59 | P.PN ---
Subjective Progress Note Date: 09/10/24 Hospital Course: Patient is a pleasant 73-year-old female with a past medical history of COPD not home oxygen dependent, obstructive sleep apnea CPAP dependent nightly, hypertension, hyperlipidemia, DVT, and breast cancer status post bilateral mastectomy 12/2023. She reports she follows with PCP Dr. Nazario, Dr. Sargent for cardiology and animal cruelty investigation supervisor Dr. Lieberman. She presented to the emergency department with a chief complaint of shortness of breath. She reports beginning to feel exertional dyspnea over the past couple days that she reports is rapidly worsened. Patient reports it has been accompanied by a productive cough of white sputum. She states shortness of breath was initially only with exertion but today just sitting at the kitchen table to drink a couple coffee she was experiencing conversational dyspnea and shortness of breath at rest so she told her she need to go to the hospital to be evaluated. She denies having any fevers, chills, diaphoresis, headache, lightheadedness, dizziness, chest pain, palpitations, abdominal pain, nausea, vomiting, or experiencing any increased swelling in her lower extremities. Upon arrival to our facility, patient underwent evaluation in the emergency department. Vital signs upon arrival show blood pressure 156/82, heart rate 76, respiratory rate 18, temp 97.5 F, and SpO2 of 91% on room air. EKG was completed showing sinus mechanism at 72 bpm with an incomplete right bundle branch block upon personal review and interpretation. Chest x-ray completed negative for acute cardiopulmonary process showing COPD changes with flattening of the diaphragm and increased lucency of lungs. Labs completed and reviewed. CBC unremarkable. BMP showing mild prerenal azotemia with BUN of 19. Blood glucose 121. Calcium 9.6. Liver profile unremarkable. Troponin was elevated at 0.079 with proBNP of 822. Influenza A, influenza B, RSV, and COVID PCR were negative. Patient started on heparin infusion for treatment of NSTEMI and admitted under our services with consultation to cardiology. Physical exam: Patient seen and fully evaluated at bedside this morning. She remains in ER and currently on room 24 while awaiting bed assignment on 3 S. Patient reports continued shortness of breath Vital signs reviewed and stable. General: Nontoxic, no distress and appears stated age. Morbidly obese. Derm: Skin warm and dry, normal coloration for ethnicity. Head: Atraumatic, normocephalic and symmetric. Eyes: EOM's intact, no lid lag, and anicteric sclera Mouth: no lip lesions, mucus membranes moist Cardiovascular: regular rate and rhythm with normal S1S2, systolic murmur, positive posterior tibial pulses bilaterally, and cap refill < 2 seconds. Lungs: Respirations even, regular, and unlabored on 3 L O2 via nasal cannula. Lungs diminished with diffuse expiratory wheezes bilaterally, no rhonchi, no rales, no crackles and no accessory muscle usage. Bilateral masectomy Abdominal: soft, nontender to palpation, no guarding, no appreciable organomegaly Ext: ROM intact. No gross muscle atrophy, bilateral lower extremity edema and venous stasis discoloration Neuro: Speech clear, face symmetrical and CN II-XII grossly intact with no noted focal neuro deficits Psych: Alert and oriented to person, place, time, and situation. Appropriate and pleasant affect. Assessment and Plan of Care: NSTEMI Bradycardia Exertional dyspnea, likely secondary to above -Cardiology consulted, appreciate recommendations -Continue low intensity heparin infusion for treatment of NSTEMI with close monitoring of PTT for goal therapeutic range of 45 to 79 seconds. PTT currently therapeutic at 57.1. -Telemetry monitoring -Troponins were trended resulting at 0.079, 0.374, and 0.468. -Continue cardiac medication regimen with aspirin 81 mg daily, atorvastatin 80 mg daily, hydrochlorothiazide 25 mg daily, and valsartan 320 mg daily. -Lipid profile pending.. -Echocardiogram to be completed COPD with mild exacerbation History of DVT -CTA chest was completed negative for pulmonary emboli -Continue supplemental oxygen as needed to maintain SpO2 equal to or greater than 92%. Wean as patient tolerates. -Pulmonology following, reviewed documentation in chart -Patient received Decadron 10 mg IVP x 1 dose in the emergency department and was started on Solu-Medrol 60 mg IVP every 6 hours per pulmonology. -Continue Symbicort 160-4.5 mcg inhaler 2 puffs twice daily. -Continue DuoNebs scheduled 4 times daily and as needed for wheezing/shortness of breath. Obstructive sleep apnea -Continue CPAP nightly and while napping. Hypertension -Monitor vital signs and continue daily medication regimen with hydrochlorothiazide 25 mg daily and valsartan 320 mg daily. Hyperlipidemia -Continue atorvastatin 80 mg daily. Breast cancer status post bilateral mastectomy -Continue outpatient follow-ups and scheduled yearly cancer screenings. Data and imaging reviewed: -Morning labs reviewed. CBC unremarkable. PTT therapeutic 57.1. BMP showing mild prerenal azotemia with BUN of 20 otherwise normal findings. Blood glucose 134. Magnesium 2.1. Troponins were trended resulting at 0.079, 0.374, and 0.468. -Vital signs reviewed. Blood pressure 141/73, heart rate 49, respiratory rate 22, temp 97.4 F, and SpO2 of 95% on home CPAP settings with 3 L O2 CODE STATUS: Full code DVT prophylaxis: Low intensity heparin infusion Anticipated discharge date: Pending clinical course Anticipated discharge place: Pending clinical course Patient was seen independently by Nurse Practitioner. This document was prepared using [employer] dictation software. Please allow for errors in tempering machine operator while rare they do occur. Jarred Delgado NP rendered care for this patient independently, reviewed the findings and plan as documented in the note above and agree with plan. I did not physically speak with or examine the patient on this date. Objective - Vital Signs Vital signs: Vital Signs Temp 97.3 F L 09/10/24 04:55 Pulse 51 L 09/10/24 04:55 Resp 25 H 09/10/24 04:55 BP 139/72 09/10/24 04:55 Pulse Ox 95 09/10/24 04:55 FiO2 Intake & Output 09/09/24 09/10/24 09/10/24 18:59 06:59 18:59 Weight 136.078 kg 136.078 kg Other: Voiding Method External Catheter - Labs CBC & Chem 7: 09/10/24 05:43 09/10/24 05:43 Labs: Abnormal Lab Results - Last 24 Hours (Table) 09/09/24 09/09/24 09/09/24 Range/Units 12:56 12:56 12:56 MCHC 30.7 L (31.0-37.0) g/dL APTT (22.0-30.0) sec BUN 19 H (7-17) mg/dL Glucose 121 H (74-99) mg/dL Troponin I 0.079 H* (0.000-0.034) ng/mL 09/09/24 09/09/24 09/09/24 Range/Units 16:05 18:38 20:59 MCHC (31.0-37.0) g/dL APTT 38.1 H (22.0-30.0) sec BUN (7-17) mg/dL Glucose (74-99) mg/dL Troponin I 0.374 H* 0.468 H* (0.000-0.034) ng/mL 09/10/24 09/10/24 Range/Units 04:49 05:43 MCHC (31.0-37.0) g/dL APTT 57.1 H (22.0-30.0) sec BUN 20 H (7-17) mg/dL Glucose 134 H (74-99) mg/dL Troponin I (0.000-0.034) ng/mL
[2024-09-10 15:01] LABS: Chol/HDL Ratio 4.21 Ratio; LDL Cholesterol,Calculated 103.8 mg/dL (0.0-131.0); VLDL Calculation 19.72 mg/dL (5.00-40.00)
[2024-09-10] MEDS: IPRATROPIUM-ALBUTEROL 3 ML NEB INHALATION SCH (15:48)
--- NOTE | 2024-09-11 07:09 | CA ---
Transthoracic Echo Report Name: Gauri Barger Age: 73 Gender: F : 1950 Exam Date: 09/10/2024 18:19 Exam Location: [facility] Ht (in): 66 Wt (lb): 300 Ordering Physician: Jarred Delgado Attending/Referring Phys: Medical Intern Lyndsay Alicea RDCS Procedure CPT: Indications: exertional dyspnea, elevated troponin Cardiac Hx: Technical Quality: Technically difficult study Contrast 1: Definity Total Dose (mL): 2 Contrast 2: Total Dose (mL): MEASUREMENTS (Male / Female) Normal Values 2D ECHO LV Diastolic Diameter PLAX 4.9 cm 4.2 - 5.9 / 3.9 - 5.3 cm LV Systolic Diameter PLAX 3.3 cm IVS Diastolic Thickness 1.6 cm 0.6 - 1.0 / 0.6 - 0.9 cm LVPW Diastolic Thickness 1.4 cm 0.6 - 1.0 / 0.6 - 0.9 cm LV Relative Wall Thickness 0.6 RV Internal Dim ED PLAX 3.4 cm LA Systolic Diameter LX 4.0 cm 3.0 - 4.0 / 2.7 - 3.8 cm LV Diastolic Volume MOD BP 75.9 cm??? 67 - 155 / 56 - 104 cm??? LV Systolic Volume MOD BP 39.4 cm??? - / 19 - 49 cm??? LV Ejection Fraction MOD BP 48.0 % >= 55 % LV Cardiac Index MOD BP 674.2 cm???/min???m??? LV Diastolic Volume MOD 4C 60.3 cm??? LV Systolic Volume MOD 4C 36.2 cm??? LV Ejection Fraction MOD 4C 40.0 % LV Cardiac Index MOD 4C 445.4 cm???/min???m??? LV Diastolic Length 4C 7.3 cm LV Systolic Length 4C 6.5 cm LV Diastolic Volume MOD 2C 90.8 cm??? LV Systolic Volume MOD 2C 39.6 cm??? LV Ejection Fraction MOD 2C 56.3 % LV Cardiac Index MOD 2C 945.9 cm???/min???m??? LV Diastolic Length 2C 6.8 cm LV Systolic Length 2C 5.8 cm LA Volume 63.1 cm??? 18 - 58 / 22 - 52 cm??? LA Volume Index 24.3 cm???/m??? 16 - 28 cm???/m??? DOPPLER AV Peak Velocity 139.6 cm/s AV Peak Gradient 7.8 mmHg MV Area PHT 2.2 cm??? Mitral E Point Velocity 50.1 cm/s Mitral A Point Velocity 79.8 cm/s Mitral E to A Ratio 0.6 MV Deceleration Time 344.0 ms FINDINGS Left Ventricle Left ventricular ejection fraction is estimated at 40-45 %. Global hypokinesis, more noted in the apex.left ventricular cavity size normal. Moderately increased left ventricular wall thickness. Right Ventricle Mild right ventricular dilatation. Unable to estimate the right ventricular systolic pressure. Right Atrium Severe right atrial dilatation. No right atrial thrombus or mass seen. Left Atrium Mildly increased left atrial diameter. Moderately increased left atrial volume. No left atrial thrombus or mass present. Mitral Valve Structurally normal mitral valve. No mitral stenosis, regurgitation or prolapse. Aortic Valve Trileaflet aortic valve. No aortic valve stenosis or regurgitation.aortic valve not well visualized. Tricuspid Valve Tricuspid valve not well visualized. No tricuspid regurgitation. Pulmonic Valve Pulmonic valve not well visualized. Pericardium No pericardial effusion. Aorta Normal size aortic root and proximal ascending aorta. CONCLUSIONS Technically difficult study. Definity ECHO contrast used for improved visualization of the endocardial borders (inadequate visualization of two or more contiguous segments). Left ventricular systolic function moderately impaired with segmental wall motion abnormality Very limited Doppler study Previewed by: Dr. Manjit Sargent MD (Electronically Signed) Final Date: 11 September 2024 07:08
[2024-09-11] MEDS ORDERED: NITROGLYCERIN SL TABS 0.4 MG TAB SUBLINGUAL PRN (14:43)
[2024-09-11] MEDS ORDERED: ALPRAZolam 0.25 MG TAB PO PRN (14:43)
[2024-09-11] MEDS ORDERED: ALPRAZolam 0.5 MG TAB PO PRN (14:43)
--- NOTE | 2024-09-11 14:43 | P.PN ---
Subjective Progress Note Date: 09/11/24 Reason for Consult (text): NSTEMI History of present illness: This is a 73-year-old female patient of Dr. Sargent with past medical history of breast cancer status post bilateral mastectomy and dehiscence, cardiomyopathy with EF of 35%, hypertension, dyslipidemia, obstructive sleep apnea on CPAP, remote history of tobacco use. We have been asked to evaluate the patient for NSTEMI. Patient states that she came into the hospital due to shortness of br eath that had been worsening. She also had dyspnea on exertion and was unable to walk even a short distance or stand up. All of this has been gradually worsening over the last couple of days. She complains of cough with white sputum production. No fever or chills. No chest pain. Blood pressure 141/73, heart rate 49, pulse ox 95% on CPAP. Patient is seen today in the emergency center waiting for bed on the cardiac stepdown unit. Dr. Null discussed with the patient that recommendations are for cardiac catheterization once her shortness of breath is improved and she is able to lay flat. -EKG: Sinus rhythm with nonspecific ST changes. -Chest x-ray: No acute process. -CTA chest: No pulmonary embolism. -Laboratory studies: CBC electrolytes within normal limits. BUN 20 creatinine 0.82. Troponin 0.079, 0.374 and 0.468. proBNP 822. Cepheid viral panel not detected. -Home cardiac medications: Lasix 20 mg daily as needed, simvastatin 40 mg every 2 days, valsartan hydrochlorothiazide 320-25 mg daily. -Echocardiogram performed 02/19/2023 revealed normal EF, mild MR, mild TR, RVSP 42 mmHg. -Lexiscan stress test performed 06/06/2023: EF 52%, fixed apical defect. 09/11 Patient is seen and examined on the cardiac stepdown unit. Patient states that she is feeling much better today. Her breathing status is improving and patient feels that she will be able to lay flat for cardiac catheterization which we will schedule for tomorrow. Patient is in agreement to move forward with this. Blood pressure 132/79, heart rate 60, pulse ox 92% on 3 L nasal cannula. Repeat blood work reveals BUN 20 creatinine 0.82 and potassium 4.1, hemoglobin 13.8. Triglycerides 98, cholesterol 162, LDL 103. Echocardiogram reveals technically difficult study. Left ventricular systolic function moderately impaired with segmental wall motion abnormality. Very limited Doppler study. EF 40 to 45%. Physical examination: Gen: This is a 73-year-old female appears to be comfortable on CPAP VS: reviewed LUNGS: Diminished breath sounds, expiratory wheeze. No intercostal retractions. HEART: Regular rate and rhythm. Systolic ejection murmur murmur. ABDOMEN: Soft No tenderness. EXTREMITIES: Mild bilateral lower extremity edema. No calf tenderness. Assessment: NSTEMI possibly due to to COPD exacerbation COPD exacerbation Obstructive sleep apnea Hypertension Hyperlipidemia History of breast cancer status post bilateral mastectomy Cardiomyopathy with EF of 35% with recovery Plan: Continue patient's home cardiac medications Continue aspirin and statin Continue heparin drip Continue patient on Nitropaste No beta-lucia due to bradycardia Continue treatment for COPD exacerbation Patient will be scheduled for cardiac catheterization with Dr. Sargent tomorrow N.p.o. after midnight Further recommendations to follow based upon clinical course Nurse practitioner note has been reviewed, I agree with documented findings and plan of care. Patient was seen and examined. Objective - Vital Signs Vital signs: Vital Signs Temp 97.5 F L 09/11/24 04:00 Pulse 51 L 09/11/24 04:00 Resp 22 09/11/24 04:00 BP 121/62 09/11/24 04:00 Pulse Ox 93 L 09/11/24 04:00 FiO2 Intake & Output 09/10/24 09/11/24 09/11/24 18:59 06:59 18:59 Intake Total 242.5 240 Output Total 650 0 Balance -407.5 0 240 Weight 96.1 kg Intake: Intake, IV Titration 242.5 Amount Heparin Sod,Pork in 0.45% 242.5 NaCl 25,000 unit In 0.45 % NaCl 1 250ml.bag @ 7. 3487 UNITS/KG/HR 10 mls/ hr IV .Q24H [facility] Rx#: [id number] Oral 240 Output: Urine 650 0 Other: Voiding Method External Catheter External Catheter # Voids 1 # Bowel Movements 0 - Labs CBC & Chem 7: 09/10/24 05:43 09/10/24 05:43 Labs: Abnormal Lab Results - Last 24 Hours (Table) 09/10/24 Range/Units 05:43 HDL Cholesterol 38.50 L (40.00-60.00) mg/dL
--- NOTE | 2024-09-11 16:01 | P.PN ---
Subjective Progress Note Date: 09/11/24 Subjective: Patient seen and examined at bedside. No acute events overnight. Continues to have dyspnea at rest. Pertinent positives and negatives as discussed above, a complete review of syst ems was performed and all other systems are negative. Vitals Signs Reviewed. General: Nontoxic, no distress, appears at stated age, morbidly obese Derm: Warm, dry Head: Atraumatic, normocephalic, symmetric Eyes: EOMI, no lid lag, anicteric sclera Mouth: No lip lesion, mucus membranes moist Cardiovascular: S1S2 reg, no murmur Lungs: No accessory muscle use, supplemental oxygen, expiratory wheezes diffuse bilaterally Abdominal: Soft, nontender to palpation, no guarding, no appreciable organome josafat Ext: No gross muscle atrophy, no edema, no contractures Neuro: CN II-XI grossly intact, no focal neuro deficits Psych: Alert, oriented, appropriate affect Data Reviewed Today: Pertinent Labs: WBC 4.9, hemoglobin 13.8, creatinine 0.82, total cholesterol 162, LDL 103, magnesium 2.1 Imaging: Echocardiogram showed LVEF 40 to 45%. EKG independently interpreted from this morning, shows junctional rhythm with nonspecific ST and T wave changes Assessment and Plan: Acute NSTEMI Bradycardia Exertional dyspnea, likely secondary to above Systolic cardiomyopathy, EF 40 to 45% -Cardiology note reviewed, cath tomorrow, nitroglycerin ointment 1 inch topical every 6 hours -Continue heparin drip, monitor APTT, monitor for bleeding -Telemetry monitoring -Continue cardiac medication regimen with aspirin 81 mg daily, atorvastatin 80 mg daily, hydrochlorothiazide 25 mg daily, and valsartan 320 mg daily. -Patient will need to be optimized on guideline directed medical therapy after ischemic evaluation Acute COPD exacerbation Acute hypoxic respiratory failure secondary to above History of DVT -CTA chest was completed negative for pulmonary emboli -Wean oxygen -Pulmonology following -Patient continued on albuterol as needed, Symbicort twice daily, DuoNebs 4 times daily as needed, 4 times daily scheduled, Solu-Medrol IV 60 every 6 hours Obstructive sleep apnea -Continue CPAP nightly and while napping. Hypertension -Monitor vital signs and continue daily medication regimen with hydrochlorot hiazide 25 mg daily and valsartan 320 mg daily. Hyperlipidemia -Continue atorvastatin 80 mg daily. Breast cancer status post bilateral mastectomy -Continue outpatient follow-ups and scheduled yearly cancer screenings. Depression-continue Paxil 20 nightly DVT ppx: Heparin drip Code status: Full code Anticipated discharge place: Pending clinical course Anticipated discharge time: Pending clinical course Objective - Vital Signs Vital signs: Vital Signs Temp 97.7 F 09/11/24 08:50 Pulse 74 09/11/24 13:11 Resp 18 09/11/24 11:50 BP 148/80 09/11/24 11:50 Pulse Ox 93 L 09/11/24 11:50 FiO2 Intake & Output 09/10/24 09/11/24 09/11/24 18:59 06:59 18:59 Intake Total 242.5 1020 Output Total 650 0 400 Balance -407.5 0 620 Weight 96.1 kg Intake: Intake, IV Titration 242.5 Amount Heparin Sod,Pork in 0.45% 242.5 NaCl 25,000 unit In 0.45 % NaCl 1 250ml.bag @ 7. 3487 UNITS/KG/HR 10 mls/ hr IV .Q24H [facility] Rx#: [id number] Oral 1020 Output: Urine 650 0 400 Other: Voiding Method External Catheter External Catheter External Catheter # Voids 1 1 # Bowel Movements 0 - Labs CBC & Chem 7: 09/10/24 05:43 09/10/24 05:43
[2024-09-11] MEDS: SODIUM CHLORIDE 0.9% 1,000 ML IV SCH (17:16)
--- NOTE | 2024-09-11 19:03 | P.PN ---
Subjective Progress Note Date: 09/11/24 Patient is a 73-year-old female with past medical history significant for breast cancer status post bilateral mastectomy, DVT, hyperlipidemia, hypertension, former tobacco smoker, COPD, morbid obesity, obstructive sleep apnea with CPAP. Presents to the emergency department yesterday afternoon with a chief complaint of progressively worsening shortness of breath over the last 72 hours. She is chronically short of breath, especially with exertion, this is worsened since Sunday. Patient is known to have asthma/copd. Maintained on Symbicort outpatient basis. Does endorse occasional nonproductive cough, runny nose, previous sore throat earlier in the week. States has been sick with similar symptoms. Denies fevers or chills. No significant sputum production, hemoptysis, chest pain. Denies nausea, vomiting, diarrhea. Appetite has been fair. Viral screen was negative for influenza A/B, RSV, COVID. Denies any chest pain. Does have some bilateral lower extremity swelling. Chest CTA performed earlier this morning did not show any evidence of filling defects consistent with pulmonary embolism. No acute parenchymal process. Troponins were elevated at 0.079, 0.37, and 0.47 respectively. EKG: atrial rhythm, rate 72 bpm, minimal ST depressions. Cardiology is consulted. Patient previously started on IV heparin per protocol. CBC: WBC count 8, hemoglobin 13.4, platelets 189. Most recent aPTT 38. CMP: Sodium 137, potassium 4.1, chloride 101, serum bicarb 27, BUN 19, creatinine 0.9, glucose 121. LFTs not elevated. NT proBNP 822. Patient currently being evaluated in the emergency department. She is alert and fully oriented. CPAP is in the room and used at night. Sarah melendez, on 3 L/min nasal cannula. Non-labored breathing. Bilateral expiratory wheezes heard on auscultation. Heart rate is bradycardic, around 48 bpm. Blood pressure normotensive. On 09/11/2024, the patient continues to be stable hemodynamically. Free of any chest pain. Shortness of breath is improved. Nevertheless, she is having a junctional rhythm. Echocardiogram was also completed and the patient was found to have mild impairment of the LV function with an ejection fraction of 4045% and the patient has global hypokinesis more noted in the apex and the patient has mild RV dilatation, severe RA dilatation and segmental wall motion abnormalities also noted. Based on that, the patient is going to undergo a cardiac catheterization. Remains on Symbicort. Remains on DuoNeb. Remains on IV Solu-Medrol and the patient is on IV Solu-Medrol 60 mg every 6 hours. Rest of the medications remain unchanged. She is on normal saline at rate of 50 cc an hour. If she remains on IV heparin. The white cell count is 4.9 with a hemoglobin 17.8 and a platelet count of 191. BUN is 20 with a creatinine of 0.8. Sodium levels at 137 with a potassium level of 4.1. Troponins were abnormal as mentioned related to acute NSTEMI. Objective - Vital Signs Vital signs: Vital Signs Temp 97.7 F 09/11/24 08:50 Pulse 76 09/11/24 10:19 Resp 16 09/11/24 08:50 BP 138/79 09/11/24 08:50 Pulse Ox 92 L 09/11/24 08:50 FiO2 Intake & Output 09/10/24 09/11/24 09/11/24 18:59 06:59 18:59 Intake Total 242.5 240 Output Total 650 0 Balance -407.5 0 240 Weight 96.1 kg Intake: Intake, IV Titration 242.5 Amount Heparin Sod,Pork in 0.45% 242.5 NaCl 25,000 unit In 0.45 % NaCl 1 250ml.bag @ 7. 3487 UNITS/KG/HR 10 mls/ hr IV .Q24H [facility] Rx#: [id number] Oral 240 Output: Urine 650 0 Other: Voiding Method External Catheter External Catheter External Catheter # Voids 1 1 # Bowel Movements 0 - Exam GENERAL EXAM: Alert, morbidly obese 73-year-old female, on 3 L/min nasal cannula, nonlabored breathing, comfortable in no apparent distress. CPAP is in the room and on standby HEAD: Normocephalic and atraumatic EYES: Normal reaction of pupils, equal size. NOSE: Clear with pink turbinates. THROAT: No erythema or exudates. NECK: No masses, no JVD. CHEST: No chest wall deformity. LUNGS: Equal air entry with expiratory wheezing heard bilaterally throughout. No conversational dyspnea or accessory muscle use while at rest CVS: S1 and S2 normal with no audible murmur, regular rhythm. No extra heart sounds ABDOMEN: No hepatosplenomegaly, active bowel sounds, no guarding or rigidity. SPINE: No scoliosis or deformity SKIN: No rashes CENTRAL NERVOUS SYSTEM: No focal deficits, tone is normal in all 4 extremities. EXTREMITIES: There is bilateral lower extremity 1+ pitting edema. clubbing, or cyanosis. Peripheral pulses are intact. - Labs CBC & Chem 7: 09/10/24 05:43 09/10/24 05:43 Labs: Abnormal Lab Results - Last 24 Hours (Table) 09/10/24 Range/Units 05:43 HDL Cholesterol 38.50 L (40.00-60.00) mg/dL Assessment and Plan Assessment: Acute asthma/COPD exacerbation, remains on bronchodilators and steroids, slightly improved compared to yesterday and the patient seems to be less short of breath Acute non-ST segment elevation myocardial infarction, elevated troponins, rule out non-ST elevation [place], currently on IV heparin per protocol Acute hypoxemic respiratory failure, secondary to above, chest x-ray does not show any acute cardiopulmonary process. CT of the chest showed no evidence of any pulmonary embolism, the patient remains on oxygen 2 L/min nasal cannula Bradycardia, asymptomatic, junctional bradycardia. Remains hemodynamically stable CHF with impaired LV function with an ejection fraction of 45 %. Patient also has segmental wall motion abnormalities, mild RVE and severe LA dilatation. Hypertension History of hyperlipidemia Severe obstructive sleep apnea, maintained on CPAP with pressure of 16 cm H20 on outpatient basis Morbid obesity, with a BMI of 48.8 kg/m History of DVT History of breast cancer with previous bilateral mastectomy Plan: Titrate oxygen flow to maintain saturation above 90%, currently on 2 L continue combination of duo nebs, Symbicort inhaler Continue IV Solu-Medrol 60 mg every 6 hours Viral 4 Plex unremarkable for influenza, RSV, COVID Continue CPAP at bedtime, with a pressure support of 16 cm H2O Continues on IV heparin per protocol, awaiting further recommendations from cardiology. Transthoracic echocardiogram was noted with an ejection fraction of 45% along wi th segmental wall motion abnormalities Cardiac catheterization in a.m. we will continue to follow Time with Patient: Greater than 30
[2024-09-11] MEDS: guaiFENesin 600 MG TABLET.ER PO PRN (20:50)
[2024-09-12] MEDS: EMPTY BAG 1 BAG with SODIUM CHLORIDE 0.9% 1,000 ML IV ONE (03:30)
[2024-09-12] MEDS: ASPIRIN 325 MG TAB PO ONE (05:43)
[2024-09-12] MEDS: ATORVASTATIN 80 MG TAB PO ONE (05:43)
[2024-09-12 06:03] LABS: Basophils % (A) 0 %; Eosinophils # (A) 0.1 k/uL (0-0.7); Eosinophils % (A) 1 %; HCT 49.8 % (34.0-46.0); HGB 15.5 gm/dL (11.4-16.0); Hypochromasia Slight; Lymphocytes # (A) 1.1 k/uL (1.0-4.8); Lymphocytes % (A) 9 %; MCH 29.3 pg (25.0-35.0); MCHC 31.1 g/dL (31.0-37.0); MCV 94.4 fL (80.0-100.0); Mean Platelet Volume 7.7; Monocytes # (A) 0.7 k/uL (0-1.0); Monocytes % (A) 6 %; Neutrophils # (A) 9.8 k/uL (1.3-7.7); Neutrophils % (A) 83 %; Platelet Count 240 k/uL (150-450); RBC 5.27 m/uL (3.80-5.40); RDW 14.6 % (11.5-15.5); WBC 11.8 k/uL (3.8-10.6)
[2024-09-12 06:47] LABS: African American GFR (CKD) 53 (>60 ml/min/1.73 sqM); Anion Gap 15 mmol/L; Blood Urea Nitrogen 39 mg/dL (7-17); Calcium 9.6 mg/dL (8.4-10.2); Carbon Dioxide 29 mmol/L (22-30); Chloride 95 mmol/L (98-107); Glucose 184 mg/dL (74-99); Magnesium 2.3 mg/dL (1.6-2.3); Non-African American GFR(CKD) 46 (>60 ml/min/1.73 sqM); Potassium 3.4 mmol/L (3.5-5.1); Sodium 139 mmol/L (137-145)
[2024-09-12] MEDS ORDERED: HEPARIN SODIUM,PORCINE 10,000 UNIT in SODIUM CHLORIDE 0.9% 1,000 ML IRRIGATION PRN (07:00)
[2024-09-12] MEDS ORDERED: HEPARIN SODIUM,PORCINE (1 ML) 2,500 UNIT in SODIUM CHLORIDE 0.9% 250 ML IRRIGATION PRN (07:00)
[2024-09-12] MEDS: amLODIPine 10 MG TAB PO SCH (08:16)
[2024-09-12] MEDS: POTASSIUM CHLORIDE ER 20 MEQ TAB.ER PO STA (08:16)
[2024-09-12] MEDS ORDERED: ALPRAZolam 0.5 MG TAB PO PRN (08:25)
[2024-09-12] MEDS ORDERED: NITROGLYCERIN SL TABS 0.4 MG TAB SUBLINGUAL PRN (08:25)
[2024-09-12] MEDS ORDERED: ALPRAZolam 0.25 MG TAB PO PRN (08:25)
--- NOTE | 2024-09-12 13:15 | P.PN ---
Subjective Progress Note Date: 09/12/24 Reason for Consult (text): NSTEMI History of present illness: This is a 73-year-old female patient of Dr. Sargent with past medical history of breast cancer status post bilateral mastectomy and dehiscence, cardiomyopathy with EF of 35%, hypertension, dyslipidemia, obstructive sleep apnea on CPAP, remote history of tobacco use. We have been asked to evaluate the patient for NSTEMI. Patient states that she came into the hospital due to shortness of br eath that had been worsening. She also had dyspnea on exertion and was unable to walk even a short distance or stand up. All of this has been gradually worsening over the last couple of days. She complains of cough with white sputum production. No fever or chills. No chest pain. Blood pressure 141/73, heart rate 49, pulse ox 95% on CPAP. Patient is seen today in the emergency center waiting for bed on the cardiac stepdown unit. Dr. Null discussed with the patient that recommendations are for cardiac catheterization once her shortness of breath is improved and she is able to lay flat. -EKG: Sinus rhythm with nonspecific ST changes. -Chest x-ray: No acute process. -CTA chest: No pulmonary embolism. -Laboratory studies: CBC electrolytes within normal limits. BUN 20 creatinine 0.82. Troponin 0.079, 0.374 and 0.468. proBNP 822. Cepheid viral panel not detected. -Home cardiac medications: Lasix 20 mg daily as needed, simvastatin 40 mg every 2 days, valsartan hydrochlorothiazide 320-25 mg daily. -Echocardiogram performed 02/19/2023 revealed normal EF, mild MR, mild TR, RVSP 42 mmHg. -Lexiscan stress test performed 06/06/2023: EF 52%, fixed apical defect. 09/11 Patient is seen and examined on the cardiac stepdown unit. Patient states that she is feeling much better today. Her breathing status is improving and patient feels that she will be able to lay flat for cardiac catheterization which we will schedule for tomorrow. Patient is in agreement to move forward with this. Blood pressure 132/79, heart rate 60, pulse ox 92% on 3 L nasal cannula. Repeat blood work reveals BUN 20 creatinine 0.82 and potassium 4.1, hemoglobin 13.8. Triglycerides 98, cholesterol 162, LDL 103. Echocardiogram reveals technically difficult study. Left ventricular systolic function moderately impaired with segmental wall motion abnormality. Very limited Doppler study. EF 40 to 45%. 09/12 Patient seen and examined. Attending discontinued hydrochlorothiazide and Diovan and started patient on amlodipine. Blood pressure 125/70, heart rate is in the 60s and 70s, pulse ox 93% on 2 L nasal cannula. Repeat blood work reveals WBC 11.8, hemoglobin 15.5, potassium 3.4, BUN 39 creatinine 1.17. Physical examination: Gen: This is a 73-year-old female appears to be comfortable on CPAP VS: reviewed LUNGS: Diminished breath sounds, expiratory wheeze. No intercostal retractions. HEART: Regular rate and rhythm. Systolic ejection murmur murmur. ABDOMEN: Soft No tenderness. EXTREMITIES: Mild bilateral lower extremity edema. No calf tenderness. Assessment: NSTEMI possibly due to to COPD exacerbation COPD exacerbation Obstructive sleep apnea Hypertension Hyperlipidemia History of breast cancer status post bilateral mastectomy Cardiomyopathy with EF of 35% with recovery Plan: Continue patient's home cardiac medications Continue aspirin and statin Continue heparin drip Continue patient on Nitropaste No beta-lucia due to bradycardia Continue treatment for COPD exacerbation Patient will be scheduled for cardiac catheterization with Dr. Sargent for Sunday N.p.o. after midnight Further recommendations to follow based upon clinical course Nurse practitioner note has been reviewed, I agree with documented findings and plan of care. Patient was seen and examined. Objective - Vital Signs Vital signs: Vital Signs Temp 97.8 F 09/11/24 16:00 Pulse 72 09/12/24 08:19 Resp 25 H 09/12/24 04:28 BP 151/72 09/12/24 04:28 Pulse Ox 94 L 09/12/24 08:07 FiO2 Intake & Output 09/11/24 09/12/24 09/12/24 18:59 06:59 18:59 Intake Total 1810 136.167 Output Total 600 400 Balance 1210 -263.833 Weight 134.7 kg Intake: Intake, IV Titration 250 136.167 Amount Heparin Sod,Pork in 0.45% 250 136.167 NaCl 25,000 unit In 0.45 % NaCl 1 250ml.bag @ 7. 3487 UNITS/KG/HR 10 mls/ hr IV .Q24H [facility] Rx#: [id number] Oral 1560 Output: Urine 600 400 Other: Voiding Method External Catheter External Catheter # Voids 1 - Labs CBC & Chem 7: 09/12/24 05:51 09/12/24 05:51 Labs: Abnormal Lab Results - Last 24 Hours (Table) 09/12/24 09/12/24 09/12/24 Range/Units 05:51 05:51 05:51 WBC 11.8 H (3.8-10.6) k/uL Hct 49.8 H (34.0-46.0) % Neutrophils # 9.8 H (1.3-7.7) k/uL APTT 71.5 H (22.0-30.0) sec Potassium 3.4 L (3.5-5.1) mmol/L Chloride 95 L (98-107) mmol/L BUN 39 H (7-17) mg/dL Creatinine 1.17 H (0.52-1.04) mg/dL Glucose 184 H (74-99) mg/dL
--- NOTE | 2024-09-12 13:57 | P.PN ---
Subjective Progress Note Date: 09/12/24 Subjective: Patient seen and examined at bedside. No acute events overnight. Continues to have dyspnea at rest. Oxygen requirements coming down. Making urine. Pertinent positives and negatives as discussed above, a complete review of systems was performed and all other systems are negative. Vitals Signs Reviewed. General: Nontoxic, no distress, appears at stated age, morbidly obese Derm: Warm, dry Head: Atraumatic, normocephalic, symmetric Eyes: EOMI, no lid lag, anicteric sclera Mouth: No lip lesion, mucus membranes moist Cardiovascular: S1S2 reg, no murmur Lungs: No accessory muscle use, supplemental oxygen, expiratory wheezes diffuse bilaterally Abdominal: Soft, nontender to palpation, no guarding, no appreciable organomegaly Ext: No gross muscle atrophy, no edema, no contractures Neuro: CN II-XI grossly intact, no focal neuro deficits Psych: Alert, oriented, appropriate affect Data Reviewed Today: Pertinent Labs: WBC 11.8, hemoglobin 15.5, platelet 240, potassium 3.4, creatinine 1.17 Imaging: EKG independently interpreted from this morning, shows bradycardia junc tional rhythm with nonspecific ST and T wave changes Assessment and Plan: Acute NSTEMI Bradycardia Exertional dyspnea, likely secondary to above Systolic cardiomyopathy, EF 40 to 45% -Cardiology note reviewed, cath tomorrow, nitroglycerin ointment 1 inch topical every 6 hours -Continue heparin drip, monitor APTT, monitor for bleeding -Telemetry monitoring -Continue cardiac medication regimen with aspirin 81 mg daily, atorvastatin 80 mg daily -Patient will need to be optimized on guideline directed medical therapy after ischemic evaluation Acute COPD exacerbation Acute hypoxic respiratory failure secondary to above History of DVT -CTA chest was completed negative for pulmonary emboli -Wean oxygen -Pulmonology following -Patient continued on albuterol as needed, Symbicort twice daily, DuoNebs 4 times daily as needed, 4 times daily scheduled, Solu-Medrol IV 60 every 6 hours Obstructive sleep apnea -Continue CPAP nightly and while napping. Hypertension -Creatinine has been slightly uptrending -Discontinue valsartan hydrochlorothiazide -Patient does appear slightly dry given hemoconcentration on CBC as well as poor oral intake due to being n.p.o. multiple times -Hold off any IV fluids -Started on amlodipine 10 mg daily Hyperlipidemia -Continue atorvastatin 80 mg daily. Breast cancer status post bilateral mastectomy -Continue outpatient follow-ups and scheduled yearly cancer screenings. Depression-continue Paxil 20 nightly DVT ppx: Heparin drip Code status: Full code Anticipated discharge place: Pending clinical course Anticipated discharge time: Pending clinical course Objective - Vital Signs Vital signs: Vital Signs Temp 97.8 F 09/11/24 16:00 Pulse 72 09/12/24 11:45 Resp 18 09/12/24 08:10 BP 125/70 09/12/24 08:10 Pulse Ox 93 L 09/12/24 08:10 FiO2 Intake & Output 09/11/24 09/12/24 09/12/24 18:59 06:59 18:59 Intake Total 1810 136.167 Output Total 600 400 Balance 1210 -263.833 Weight 134.7 kg Intake: Intake, IV Titration 250 136.167 Amount Heparin Sod,Pork in 0.45% 250 136.167 NaCl 25,000 unit In 0.45 % NaCl 1 250ml.bag @ 7. 3487 UNITS/KG/HR 10 mls/ hr IV .Q24H [facility] Rx#: [id number] Oral 1560 Output: Urine 600 400 Other: Voiding Method External Catheter External Catheter External Catheter # Voids 1 - Labs CBC & Chem 7: 09/12/24 05:51 09/12/24 05:51 Labs: Abnormal Lab Results - Last 24 Hours (Table) 09/12/24 09/12/24 09/12/24 Range/Units 05:51 05:51 05:51 WBC 11.8 H (3.8-10.6) k/uL Hct 49.8 H (34.0-46.0) % Neutrophils # 9.8 H (1.3-7.7) k/uL APTT 71.5 H (22.0-30.0) sec Potassium 3.4 L (3.5-5.1) mmol/L Chloride 95 L (98-107) mmol/L BUN 39 H (7-17) mg/dL Creatinine 1.17 H (0.52-1.04) mg/dL Glucose 184 H (74-99) mg/dL
[2024-09-12] MEDS: HEPARIN SODIUM 1,000 UN/ML (10ML VL) IV PRN (16:07)
--- NOTE | 2024-09-12 17:07 | P.PN ---
Subjective Progress Note Date: 09/12/24 Patient is a 73-year-old female with past medical history significant for breast cancer status post bilateral mastectomy, DVT, hyperlipidemia, hypertension, former tobacco smoker, COPD, morbid obesity, obstructive sleep apnea with CPAP. Presents to the emergency department yesterday afternoon with a chief complaint of progressively worsening shortness of breath over the last 72 hours. She is chronically short of breath, especially with exertion, this is worsened since Sunday. Patient is known to have asthma/copd. Maintained on Symbicort outpatient basis. Does endorse occasional nonproductive cough, runny nose, previous sore throat earlier in the week. States has been sick with similar symptoms. Denies fevers or chills. No significant sputum production, hemoptysis, chest pain. Denies nausea, vomiting, diarrhea. Appetite has been fair. Viral screen was negative for influenza A/B, RSV, COVID. Denies any chest pain. Does have some bilateral lower extremity swelling. Chest CTA performed earlier this morning did not show any evidence of filling defects consistent with pulmonary embolism. No acute parenchymal process. Troponins were elevated at 0.079, 0.37, and 0.47 respectively. EKG: atrial rhythm, rate 72 bpm, minimal ST depressions. Cardiology is consulted. Patient previously started on IV heparin per protocol. CBC: WBC count 8, hemoglobin 13.4, platelets 189. Most recent aPTT 38. CMP: Sodium 137, potassium 4.1, chloride 101, serum bicarb 27, BUN 19, creatinine 0.9, glucose 121. LFTs not elevated. NT proBNP 822. Patient currently being evaluated in the emergency department. She is alert and fully oriented. CPAP is in the room and used at night. Sarah melendez, on 3 L/min nasal cannula. Non-labored breathing. Bilateral expiratory wheezes heard on auscultation. Heart rate is bradycardic, around 48 bpm. Blood pressure normotensive. On 09/11/2024, the patient continues to be stable hemodynamically. Free of any chest pain. Shortness of breath is improved. Nevertheless, she is having a junctional rhythm. Echocardiogram was also completed and the patient was found to have mild impairment of the LV function with an ejection fraction of 4045% and the patient has global hypokinesis more noted in the apex and the patient has mild RV dilatation, severe RA dilatation and segmental wall motion abnormalities also noted. Based on that, the patient is going to undergo a cardiac catheterization. Remains on Symbicort. Remains on DuoNeb. Remains on IV Solu-Medrol and the patient is on IV Solu-Medrol 60 mg every 6 hours. Rest of the medications remain unchanged. She is on normal saline at rate of 50 cc an hour. If she remains on IV heparin. The white cell count is 4.9 with a hemoglobin 17.8 and a platelet count of 191. BUN is 20 with a creatinine of 0.8. Sodium levels at 137 with a potassium level of 4.1. Troponins were abnormal as mentioned related to acute NSTEMI. On 09/12/2024, the patient is EKG showing a sinus rhythm. Slightly bradycardic. Still awaiting cardiac catheterization. Free of any chest pain. No significant cough or sputum production. Less bronchospastic and wheezy compared to yesterday. Remains on DuoNeb updrafts. Remains on IV Solu-Medrol. Remains on Symbicort. Remains on IV heparin. Rest of the medications remain unchanged. The white cell count is 11 hemoglobin 15.5 and a platelet count of 240. BUN 39 with a creatinine of 1.1. Sodium levels at 139 potassium level is at 3.4. The patient is not receiving any diuretics at this point in time. IV fluids are normal same rate of 50 cc an hour. Objective - Vital Signs Vital signs: Vital Signs Temp 97.8 F 09/11/24 16:00 Pulse 72 09/12/24 11:45 Resp 18 09/12/24 08:10 BP 125/70 09/12/24 08:10 Pulse Ox 93 L 09/12/24 08:10 FiO2 Intake & Output 09/11/24 09/12/24 09/12/24 18:59 06:59 18:59 Intake Total 1810 136.167 Output Total 600 400 Balance 1210 -263.833 Weight 134.7 kg Intake: Intake, IV Titration 250 136.167 Amount Heparin Sod,Pork in 0.45% 250 136.167 NaCl 25,000 unit In 0.45 % NaCl 1 250ml.bag @ 7. 3487 UNITS/KG/HR 10 mls/ hr IV .Q24H [facility] Rx#: [id number] Oral 1560 Output: Urine 600 400 Other: Voiding Method External Catheter External Catheter External Catheter # Voids 1 - Exam GENERAL EXAM: Alert, morbidly obese 73-year-old female, on 3 L/min nasal cannula, nonlabored breathing, comfortable in no apparent distress. CPAP is in the room and on standby HEAD: Normocephalic and atraumatic EYES: Normal reaction of pupils, equal size. NOSE: Clear with pink turbinates. THROAT: No erythema or exudates. NECK: No masses, no JVD. CHEST: No chest wall deformity. LUNGS: Equal air entry with expiratory wheezing heard bilaterally throughout. No conversational dyspnea or accessory muscle use while at rest CVS: S1 and S2 normal with no audible murmur, regular rhythm. No extra heart sounds ABDOMEN: No hepatosplenomegaly, active bowel sounds, no guarding or rigidity. SPINE: No scoliosis or deformity SKIN: No rashes CENTRAL NERVOUS SYSTEM: No focal deficits, tone is normal in all 4 extremities. EXTREMITIES: There is bilateral lower extremity 1+ pitting edema. clubbing, or cyanosis. Peripheral pulses are intact. - Labs CBC & Chem 7: 09/12/24 05:51 09/12/24 05:51 Labs: Abnormal Lab Results - Last 24 Hours (Table) 09/12/24 09/12/24 09/12/24 Range/Units 05:51 05:51 05:51 WBC 11.8 H (3.8-10.6) k/uL Hct 49.8 H (34.0-46.0) % Neutrophils # 9.8 H (1.3-7.7) k/uL APTT 71.5 H (22.0-30.0) sec Potassium 3.4 L (3.5-5.1) mmol/L Chloride 95 L (98-107) mmol/L BUN 39 H (7-17) mg/dL Creatinine 1.17 H (0.52-1.04) mg/dL Glucose 184 H (74-99) mg/dL Assessment and Plan Assessment: Acute asthma/COPD exacerbation, clinically improving with a combination of bronchodilators and steroids Acute non-ST segment elevation myocardial infarction, elevated troponins, rule out non-ST elevation [place], currently on IV heparin per protocol, awaiting cardiac catheterization Acute hypoxemic respiratory failure, secondary to above, chest x-ray does not show any acute cardiopulmonary process. CT of the chest showed no evidence of any pulmonary embolism, the patient remains on oxygen 2 L/min nasal cannula Bradycardia, asymptomatic, junctional bradycardia. Remains hemodynamically stable CHF with impaired LV function with an ejection fraction of 45 %. Patient also has segmental wall motion abnormalities, mild RVE and severe LA dilatation. Hypertension History of hyperlipidemia Severe obstructive sleep apnea, maintained on CPAP with pressure of 16 cm H20 on outpatient basis Morbid obesity, with a BMI of 48.8 kg/m History of DVT History of breast cancer with previous bilateral mastectomy Plan: Titrate oxygen flow to maintain saturation above 90%, currently on 2 L continue combination of duo nebs, Symbicort inhaler Continue IV Solu-Medrol 60 mg every 6 hours Viral 4 Plex unremarkable for influenza, RSV, COVID Continue CPAP at bedtime, with a pressure support of 16 cm H2O Continues on IV heparin per protocol, awaiting further recommendations from cardiology. Transthoracic echocardiogram was noted with an ejection fraction of 45% along with segmental wall motio sinus bradycardia on today's EKGn abnormalities Cardiac catheterization in a.m. lGentle hydration monitor renal function continue to follow Time with Patient: Greater than 30
[2024-09-13] MEDS: ATORVASTATIN 80 MG TAB PO ONE (05:06)
[2024-09-13] MEDS: ASPIRIN 325 MG TAB PO ONE (05:06)
[2024-09-13 09:03] LABS: Basophils % (A) 0 %; Eosinophils % (A) 0 %; HCT 48.2 % (34.0-46.0); HGB 14.7 gm/dL (11.4-16.0); Lymphocytes # (A) 0.9 k/uL (1.0-4.8); Lymphocytes % (A) 9 %; MCH 28.7 pg (25.0-35.0); MCHC 30.4 g/dL (31.0-37.0); MCV 94.5 fL (80.0-100.0); Mean Platelet Volume 8.2; Monocytes # (A) 0.4 k/uL (0-1.0); Monocytes % (A) 5 %; Neutrophils # (A) 8.2 k/uL (1.3-7.7); Neutrophils % (A) 86 %; Platelet Count 236 k/uL (150-450); RDW 14.8 % (11.5-15.5); WBC 9.6 k/uL (3.8-10.6)
[2024-09-13 09:12] LABS: African American GFR (CKD) 60 (>60 ml/min/1.73 sqM); Anion Gap 11 mmol/L; Blood Urea Nitrogen 33 mg/dL (7-17); Calcium 9.7 mg/dL (8.4-10.2); Carbon Dioxide 30 mmol/L (22-30); Chloride 98 mmol/L (98-107); Glucose 151 mg/dL (74-99); Magnesium 2.4 mg/dL (1.6-2.3); Non-African American GFR(CKD) 52 (>60 ml/min/1.73 sqM); Sodium 139 mmol/L (137-145)
[2024-09-13] MEDS: IV FLUID CONTINUATION 1,000 ML IV ONE (10:40)
[2024-09-13] MEDS: LIDOCAINE 1% INJ 10MG/ML (20 ML MDV) SQ ONE (10:44)
[2024-09-13] MEDS: fentaNYL (PF) 50 MCG/ML 2 ML AMP IVP ONE (10:44)
[2024-09-13] MEDS: VERAPAMIL SYRINGE (5 MG/10 ML) INTRAARTER ONE (10:46)
[2024-09-13] MEDS: MIDAZOLAM 2 MG/2 ML VIAL IVP ONE (10:46)
[2024-09-13] MEDS: HEPARIN SODIUM,PORCINE 10,000 UNIT in SODIUM CHLORIDE 0.9% 1,000 ML IRRIGATION PRN (10:51)
[2024-09-13] MEDS: HEPARIN SODIUM 1,000 UN/ML (10ML VL) IV ONE (10:51)
[2024-09-13] MEDS: HEPARIN SODIUM,PORCINE (1 ML) 2,500 UNIT in SODIUM CHLORIDE 0.9% 250 ML IRRIGATION PRN (10:52)
[2024-09-13] MEDS: IOPAMIDOL-370 100ML BTL INJ ONE (10:57)
[2024-09-13] MEDS ORDERED: RX INFO: IV CONTRAST WAS GIVEN 1 EACH MISC MISCELLANE PRN (11:05)
--- NOTE | 2024-09-13 11:14 | P.CARDCATH ---
Date of Procedure: 09/13/24 Description of Procedure: Cardiac Catheterization: The patient is a 73-year-old female with known history of hypertension hyperlipidemia who presented with symptoms of progressive dyspnea, mild troponin elevation and was found to have evidence of cardiomyopathy on her echocardiogram, she was evaluated by Dr. Null. Recommendations were made regarding cardiac catheterization, the risks and the complications were discussed with the patient who is in full understanding and agreement. Procedure Description: Patient was brought to microbiology lab technician in fasting semi-sedated state after receiving Fentanyl and Benadryl achieiving moderate conscious sedated state. Using Xylocaine Anesthesia and modified Seldinger technique, a 6-Wolof sheath was introduced in the right radial artery . Subsequently, selective coronary angiography was performed using a 5-Wolof 3.5 bend Gaby catheter. Multiple views of the coronary artery including hemiaxial views were obtained. The right Gaby catheter was used to cross the aortic valve and LVEDP was calculated. Following that, catheter and sheath were removed. Hemostasis was obtained with deployment of vascular band . There was no immediate complication. Patient was returned to room in stable condition. Of note, the patient received a total of 5000 units of intravenous heparin as well as intra-arterial verapamil. Findings: Left main: This is a short size vessel, bifurcating into LAD and left circumflex, left main has no obstructive disease LAD: This is a large size vessel, reaching to the apex with a wraparound apex segment giving rise to a large diagonal branch proximally. The left anterior descending artery and its branches have no obstructive disease Left circumflex: This is a large dominant vessel, bifurcating distally to PDA and PLV giving rise to 2 obtuse marginal branch the second 1 is large in caliber. The left circumflex after the takeoff of the second obtuse marginal branch has 20 to 30% eccentric plaque, the rest of the vessel has no high-grade stenosis RCA: This is a small nondominant vessel that has no evidence of high-grade steno sis Left Ventriculogram: Not performed Hemodynamics: There was no gradient across aortic valve, LVEDP was 14-16 mmHg Conclusion: 1. Mild disease in the distal left circumflex 2. No obstructive disease in the RCA and LAD 3. Left dominance Recommendations: In view of her findings I have recommended to continue medical therapy with the aggressive coronary risks modification initiated and treatment for her cardiomyopathy. The findings and the recommendations were discussed with the patient and the family and they were in full understanding and agreement. Duration of sedation is 13 minutes.
[2024-09-13] MEDS: VALSARTAN 160 MG TAB PO SCH (12:21)
[2024-09-13] MEDS: carvediloL 3.125 MG TAB PO SCH (12:21)
[2024-09-13] MEDS: SODIUM CHLORIDE 0.9% 1,000 ML IV SCH (12:22)
--- NOTE | 2024-09-13 13:09 | P.PN ---
Subjective Progress Note Date: 09/13/24 Subjective: Patient seen and examined at bedside. No acute events overnight. Oxygen requirements coming down. Denies any chest pain. Pertinent positives and negatives as discussed above, a complete review of systems was performed and all other systems are negative. Vitals Signs Reviewed. General: Nontoxic, no distress, appears at stated age, morbidly obese Derm: Warm, dry Head: Atraumatic, normocephalic, symmetric Eyes: EOMI, no lid lag, anicteric sclera Mouth: No lip lesion, mucus membranes moist Cardiovascular: S1S2 reg, no murmur Lungs: No accessory muscle use, supplemental oxygen, expiratory wheezes diffuse bilaterally Abdominal: Soft, nontender to palpation, no guarding, no appreciable organomegaly Ext: No gross muscle atrophy, no edema, no contractures Neuro: CN II-XI grossly intact, no focal neuro deficits Psych: Alert, oriented, appropriate affect Data Reviewed Today: Pertinent Labs: WBC 9.6, hemoglobin 14.7, platelet 236, potassium 4, creatinine 1.05, magnesium 2.4 Imaging: No new imaging Assessment and Plan: Acute NSTEMI Nonobstructive CAD Bradycardia Exertional dyspnea, likely secondary to above Systolic cardiomyopathy, EF 40 to 45% -Cath report reviewed, has some disease in the left circumflex -Telemetry monitoring -Continue cardiac medication regimen with aspirin 81 mg daily, atorvastatin 80 mg daily -Patient started on valsartan 160 mg daily, Farxiga 10 mg daily, Coreg 3.125 twice daily Acute COPD exacerbation Acute hypoxic respiratory failure secondary to above History of DVT -CTA chest was completed negative for pulmonary emboli -Wean oxygen -Pulmonology following -Patient continued on albuterol as needed, Symbicort twice daily, DuoNebs 4 times daily as needed, 4 times daily scheduled, Solu-Medrol IV 60 every 6 hours Obstructive sleep apnea -Continue CPAP nightly and while napping. Hypertension -Management as above Hyperlipidemia -Continue atorvastatin 80 mg daily. Breast cancer status post bilateral mastectomy -Continue outpatient follow-ups and scheduled yearly cancer screenings. Depression-continue Paxil 20 nightly DVT ppx: Heparin sq Code status: Full code Anticipated discharge place: Pending clinical course Anticipated discharge time: Pending clinical course Objective - Vital Signs Vital signs: Vital Signs Temp 97.8 F 09/13/24 08:00 Pulse 72 09/13/24 11:38 Resp 18 09/13/24 08:00 BP 145/80 09/13/24 08:00 Pulse Ox 96 09/13/24 08:00 FiO2 Intake & Output 09/12/24 09/13/24 09/13/24 18:59 06:59 18:59 Intake Total 424.372 47.461 175 Output Total 300 900 Balance 124.372 -852.539 175 Weight 136.3 kg Intake: IV 175 Intake, IV Titration 66.372 47.461 Amount Heparin Sod,Pork in 0.45% 66.372 47.461 NaCl 25,000 unit In 0.45 % NaCl 1 250ml.bag @ 7. 3487 UNITS/KG/HR 10 mls/ hr IV .Q24H [facility] Rx#: [id number] Oral 358 Output: Urine 300 900 Other: Voiding Method External Catheter External Catheter External Catheter - Labs CBC & Chem 7: 09/13/24 07:54 09/13/24 07:54 Labs: Abnormal Lab Results - Last 24 Hours (Table) 09/12/24 09/12/24 09/13/24 Range/Units 14:56 23:17 07:54 Hct (34.0-46.0) % MCHC (31.0-37.0) g/dL Neutrophils # (1.3-7.7) k/uL Lymphocytes # (1.0-4.8) k/uL APTT 36.4 H 82.2 H (22.0-30.0) sec BUN 33 H (7-17) mg/dL Creatinine 1.05 H (0.52-1.04) mg/dL Glucose 151 H (74-99) mg/dL Magnesium 2.4 H (1.6-2.3) mg/dL 09/13/24 Range/Units 07:54 Hct 48.2 H (34.0-46.0) % MCHC 30.4 L (31.0-37.0) g/dL Neutrophils # 8.2 H (1.3-7.7) k/uL Lymphocytes # 0.9 L (1.0-4.8) k/uL APTT (22.0-30.0) sec BUN (7-17) mg/dL Creatinine (0.52-1.04) mg/dL Glucose (74-99) mg/dL Magnesium (1.6-2.3) mg/dL
--- NOTE | 2024-09-13 13:31 | P.PN ---
Subjective Progress Note Date: 09/13/24 Patient is a 73-year-old female with past medical history significant for breast cancer status post bilateral mastectomy, DVT, hyperlipidemia, hypertension, former tobacco smoker, COPD, morbid obesity, obstructive sleep apnea with CPAP. Presents to the emergency department yesterday afternoon with a chief complaint of progressively worsening shortness of breath over the last 72 hours. She is chronically short of breath, especially with exertion, this is worsened since Sunday. Patient is known to have asthma/copd. Maintained on Symbicort outpatient basis. Does endorse occasional nonproductive cough, runny nose, previous sore throat earlier in the week. States has been sick with similar symptoms. Denies fevers or chills. No significant sputum production, hemoptysis, chest pain. Denies nausea, vomiting, diarrhea. Appetite has been fair. Viral screen was negative for influenza A/B, RSV, COVID. Denies any chest pain. Does have some bilateral lower extremity swelling. Chest CTA performed earlier this morning did not show any evidence of filling defects consistent with pulmonary embolism. No acute parenchymal process. Troponins were elevated at 0.079, 0.37, and 0.47 respectively. EKG: atrial rhythm, rate 72 bpm, minimal ST depressions. Cardiology is consulted. Patient previously started on IV heparin per protocol. CBC: WBC count 8, hemoglobin 13.4, platelets 189. Most recent aPTT 38. CMP: Sodium 137, potassium 4.1, chloride 101, serum bicarb 27, BUN 19, creatinine 0.9, glucose 121. LFTs not elevated. NT proBNP 822. Patient currently being evaluated in the emergency department. She is alert and fully oriented. CPAP is in the room and used at night. Sarah melendez, on 3 L/min nasal cannula. Non-labored breathing. Bilateral expiratory wheezes heard on auscultation. Heart rate is bradycardic, around 48 bpm. Blood pressure normotensive. On 09/11/2024, the patient continues to be stable hemodynamically. Free of any chest pain. Shortness of breath is improved. Nevertheless, she is having a junctional rhythm. Echocardiogram was also completed and the patient was found to have mild impairment of the LV function with an ejection fraction of 4045% and the patient has global hypokinesis more noted in the apex and the patient has mild RV dilatation, severe RA dilatation and segmental wall motion abnormalities also noted. Based on that, the patient is going to undergo a cardiac catheterization. Remains on Symbicort. Remains on DuoNeb. Remains on IV Solu-Medrol and the patient is on IV Solu-Medrol 60 mg every 6 hours. Rest of the medications remain unchanged. She is on normal saline at rate of 50 cc an hour. If she remains on IV heparin. The white cell count is 4.9 with a hemoglobin 17.8 and a platelet count of 191. BUN is 20 with a creatinine of 0.8. Sodium levels at 137 with a potassium level of 4.1. Troponins were abnormal as mentioned related to acute NSTEMI. On 09/12/2024, the patient is EKG showing a sinus rhythm. Slightly bradycardic. Still awaiting cardiac catheterization. Free of any chest pain. No significant cough or sputum production. Less bronchospastic and wheezy compared to yesterday. Remains on DuoNeb updrafts. Remains on IV Solu-Medrol. Remains on Symbicort. Remains on IV heparin. Rest of the medications remain unchanged. The white cell count is 11 hemoglobin 15.5 and a platelet count of 240. BUN 39 with a creatinine of 1.1. Sodium levels at 139 potassium level is at 3.4. The patient is not receiving any diuretics at this point in time. IV fluids are normal same rate of 50 cc an hour. On today's evaluation of 09/13/2024, the patient is being seen for a follow-up. The patient has no new complaints. No significant shortness of breath. No chest pain. Awaiting cardiac catheterization to be done this morning by cardiology. Meanwhile, she remains on IV fluids. Creatinine is down to 1.05 with a BUN of 33, sodium levels at 139, potassium is at 4, white cell count is at 9.6 with a hemoglobin of 14.7 and platelet count of 236. No other significant events overnight. Objective - Vital Signs Vital signs: Vital Signs Temp 97.7 F 09/13/24 04:00 Pulse 75 09/13/24 08:15 Resp 17 09/13/24 04:00 BP 129/72 09/13/24 04:00 Pulse Ox 95 09/13/24 04:00 FiO2 Intake & Output 09/12/24 09/13/24 09/13/24 18:59 06:59 18:59 Intake Total 424.372 47.461 Output Total 300 900 Balance 124.372 -852.539 Weight 136.3 kg Intake: Intake, IV Titration 66.372 47.461 Amount Heparin Sod,Pork in 0.45% 66.372 47.461 NaCl 25,000 unit In 0.45 % NaCl 1 250ml.bag @ 7. 3487 UNITS/KG/HR 10 mls/ hr IV .Q24H [facility] Rx#: [id number] Oral 358 Output: Urine 300 900 Other: Voiding Method External Catheter External Catheter - Exam GENERAL EXAM: Alert, morbidly obese 73-year-old female, on 3 L/min nasal cannula, nonlabored breathing, comfortable in no apparent distress. CPAP is in the room and on standby HEAD: Normocephalic and atraumatic EYES: Normal reaction of pupils, equal size. NOSE: Clear with pink turbinates. THROAT: No erythema or exudates. NECK: No masses, no JVD. CHEST: No chest wall deformity. LUNGS: Equal air entry with expiratory wheezing heard bilaterally throughout. No conversational dyspnea or accessory muscle use while at rest CVS: S1 and S2 normal with no audible murmur, regular rhythm. No extra heart sounds ABDOMEN: No hepatosplenomegaly, active bowel sounds, no guarding or rigidity. SPINE: No scoliosis or deformity SKIN: No rashes CENTRAL NERVOUS SYSTEM: No focal deficits, tone is normal in all 4 extremities. EXTREMITIES: There is bilateral lower extremity 1+ pitting edema. clubbing, or cyanosis. Peripheral pulses are intact. - Labs CBC & Chem 7: 09/13/24 07:54 09/13/24 07:54 Labs: Abnormal Lab Results - Last 24 Hours (Table) 09/12/24 09/12/24 09/13/24 Range/Units 14:56 23:17 07:54 Hct (34.0-46.0) % MCHC (31.0-37.0) g/dL Neutrophils # (1.3-7.7) k/uL Lymphocytes # (1.0-4.8) k/uL APTT 36.4 H 82.2 H (22.0-30.0) sec BUN 33 H (7-17) mg/dL Creatinine 1.05 H (0.52-1.04) mg/dL Glucose 151 H (74-99) mg/dL Magnesium 2.4 H (1.6-2.3) mg/dL 09/13/24 Range/Units 07:54 Hct 48.2 H (34.0-46.0) % MCHC 30.4 L (31.0-37.0) g/dL Neutrophils # 8.2 H (1.3-7.7) k/uL Lymphocytes # 0.9 L (1.0-4.8) k/uL APTT (22.0-30.0) sec BUN (7-17) mg/dL Creatinine (0.52-1.04) mg/dL Glucose (74-99) mg/dL Magnesium (1.6-2.3) mg/dL Assessment and Plan Assessment: Acute asthma/COPD exacerbation, clinically improving with a combination of bronchodilators and steroids, clinically improving Acute non-ST segment elevation myocardial infarction, elevated troponins, rule out non-ST elevation SD, currently on IV heparin per protocol, awaiting cardiac catheterization Acute hypoxemic respiratory failure, secondary to above, chest x-ray does not show any acute cardiopulmonary process. CT of the chest showed no evidence of any pulmonary embolism, the patient remains on oxygen 2 L/min nasal cannula Bradycardia, asymptomatic, junctional bradycardia. Remains hemodynamically stable CHF with impaired LV function with an ejection fraction of 45 %. Patient also has segmental wall motion abnormalities, mild RVE and severe LA dilatation. Hypertension History of hyperlipidemia Severe obstructive sleep apnea, maintained on CPAP with pressure of 16 cm H20 on outpatient basis Morbid obesity, with a BMI of 48.8 kg/m History of DVT History of breast cancer with previous bilateral mastectomy Plan: Clinically stable and awaiting cardiac catheterization Titrate oxygen flow to maintain saturation above 90%, currently on 2 L continue combination of duo nebs, Symbicort inhaler Continue IV Solu-Medrol 60 mg every 6 hours, will start tapering steroids as of tomorrow Viral 4 Plex unremarkable for influenza, RSV, COVID Continue CPAP at bedtime, with a pressure support of 16 cm H2O Continues on IV heparin per protocol, awaiting further recommendations from cardiology. Transthoracic echocardiogram was noted with an ejection fraction of 45% along with segmental wall motio sinus bradycardia on today's EKGn abnormalities Cardiac catheterization this morning lGentle hydration monitor renal function, renal function stable, clinically improving continue to follow Time with Patient: Greater than 30
[2024-09-13 14:00] LABS: African American GFR (CKD) 70 (>60 ml/min/1.73 sqM); Anion Gap 8 mmol/L; Blood Urea Nitrogen 32 mg/dL (7-17); Calcium 9.4 mg/dL (8.4-10.2); Carbon Dioxide 31 mmol/L (22-30); Chloride 99 mmol/L (98-107); Glucose 156 mg/dL (74-99); Non-African American GFR(CKD) 61 (>60 ml/min/1.73 sqM); Potassium 3.8 mmol/L (3.5-5.1); Sodium 138 mmol/L (137-145)
[2024-09-13] MEDS: HEPARIN SODIUM,PORCINE 5,000 UNIT/ML 1 ML VIAL SQ SCH (17:09)
[2024-09-14] MEDS: DAPAGLIFLOZIN PROPANEDIOL 10 MG TABLET PO SCH (08:50)
--- NOTE | 2024-09-14 11:28 | P.PN ---
Subjective Progress Note Date: 09/14/24 Subjective: Patient seen and examined at bedside. No acute events overnight. Still having shortness of breath mostly with exertion. Pertinent positives and negatives as discussed above, a complete review of systems was performed and all other systems are negative. Vitals Signs Reviewed. General: Nontoxic, no distress, appears at stated age, morbidly obese Derm: Warm, dry Head: Atraumatic, normocephalic, symmetric Eyes: EOMI, no lid lag, anicteric sclera Mouth: No lip lesion, mucus membranes moist Cardiovascular: S1S2 reg, no murmur Lungs: No accessory muscle use, supplemental oxygen, expiratory wheezes diffuse bilaterally Abdominal: Soft, nontender to palpation, no guarding, no appreciable organomegaly Ext: No gross muscle atrophy, no edema, no contractures Neuro: CN II-XI grossly intact, no focal neuro deficits Psych: Alert, oriented, appropriate affect Data Reviewed Today: Pertinent Labs: No new labs Imaging: No new imaging Assessment and Plan: Acute NSTEMI Nonobstructive CAD Bradycardia Exertional dyspnea, likely secondary to above Systolic cardiomyopathy, EF 40 to 45% -Cath report: Has some disease in the left circumflex -Telemetry monitoring -Continue cardiac medication regimen with aspirin 81 mg daily, atorvastatin 80 mg daily -Patient started on valsartan 160 mg daily, Farxiga 10 mg daily, Coreg 3.125 twice daily -Cardiology following Acute COPD exacerbation Acute hypoxic respiratory failure secondary to above History of DVT -CTA chest was completed negative for pulmonary emboli -Wean oxygen -Pulmonology following -Patient continued on albuterol as needed, Symbicort twice daily, DuoNebs 4 times daily as needed, 4 times daily scheduled -Steroids changed to oral prednisone 40 daily Obstructive sleep apnea -Continue CPAP nightly and while napping. Hypertension -Management as above Hyperlipidemia -Continue atorvastatin 80 mg daily. Breast cancer status post bilateral mastectomy -Continue outpatient follow-ups and scheduled yearly cancer screenings. Depression-continue Paxil 20 nightly DVT ppx: Heparin sq Code status: Full code Anticipated discharge place: Home with home care Anticipated discharge time: Possibly tomorrow home to Objective - Vital Signs Vital signs: Vital Signs Temp 97.8 F 09/13/24 23:10 Pulse 76 09/14/24 08:43 Resp 17 09/14/24 03:28 BP 141/81 09/14/24 03:28 Pulse Ox 94 L 09/14/24 03:28 FiO2 Intake & Output 09/13/24 09/14/24 09/14/24 18:59 06:59 18:59 Intake Total 397 240 Output Total 900 Balance -503 240 Weight 107.5 kg Intake: IV 175 Oral 222 240 Output: Urine 900 Other: Voiding Method External Catheter External Catheter # Bowel Movements 1 - Labs CBC & Chem 7: 09/13/24 07:54 09/13/24 11:48 Labs: Abnormal Lab Results - Last 24 Hours (Table) 09/13/24 09/13/24 Range/Units 07:54 11:48 Carbon Dioxide 31 H (22-30) mmol/L BUN 32 H (7-17) mg/dL Glucose 156 H (74-99) mg/dL Hemoglobin A1c 6.2 H (<=6.0) %
--- NOTE | 2024-09-14 11:51 | P.PN ---
Subjective Progress Note Date: 09/14/24 Reason for Consult (text): NSTEMI History of present illness: This is a 73-year-old female patient of Dr. Sargent with past medical history of breast cancer status post bilateral mastectomy and dehiscence, cardiomyopathy with EF of 35%, hypertension, dyslipidemia, obstructive sleep apnea on CPAP, remote history of tobacco use. We have been asked to evaluate the patient for NSTEMI. Patient states that she came into the hospital due to shortness of br eath that had been worsening. She also had dyspnea on exertion and was unable to walk even a short distance or stand up. All of this has been gradually worsening over the last couple of days. She complains of cough with white sputum production. No fever or chills. No chest pain. Blood pressure 141/73, heart rate 49, pulse ox 95% on CPAP. Patient is seen today in the emergency center waiting for bed on the cardiac stepdown unit. Dr. Null discussed with the patient that recommendations are for cardiac catheterization once her shortness of breath is improved and she is able to lay flat. -EKG: Sinus rhythm with nonspecific ST changes. -Chest x-ray: No acute process. -CTA chest: No pulmonary embolism. -Laboratory studies: CBC electrolytes within normal limits. BUN 20 creatinine 0.82. Troponin 0.079, 0.374 and 0.468. proBNP 822. Cepheid viral panel not detected. -Home cardiac medications: Lasix 20 mg daily as needed, simvastatin 40 mg every 2 days, valsartan hydrochlorothiazide 320-25 mg daily. -Echocardiogram performed 02/19/2023 revealed normal EF, mild MR, mild TR, RVSP 42 mmHg. -Lexiscan stress test performed 06/06/2023: EF 52%, fixed apical defect. 09/11 Patient is seen and examined on the cardiac stepdown unit. Patient states that she is feeling much better today. Her breathing status is improving and patient feels that she will be able to lay flat for cardiac catheterization which we will schedule for tomorrow. Patient is in agreement to move forward with this. Blood pressure 132/79, heart rate 60, pulse ox 92% on 3 L nasal cannula. Repeat blood work reveals BUN 20 creatinine 0.82 and potassium 4.1, hemoglobin 13.8. Triglycerides 98, cholesterol 162, LDL 103. Echocardiogram reveals technically difficult study. Left ventricular systolic function moderately impaired with segmental wall motion abnormality. Very limited Doppler study. EF 40 to 45%. 09/12 Patient seen and examined. Attending discontinued hydrochlorothiazide and Diovan and started patient on amlodipine. Blood pressure 125/70, heart rate is in the 60s and 70s, pulse ox 93% on 2 L nasal cannula. Repeat blood work reveals WBC 11.8, hemoglobin 15.5, potassium 3.4, BUN 39 creatinine 1.17. 09/14 Patient seen and examined. Patient underwent cardiac catheterization yesterday with Dr. Sargent which revealed mild disease in the distal left circumflex and no obstructive disease in the RCA and LAD. Right wrist shows no sign of bleeding or hematoma. Patient is still having some difficulty breathing. Blood pressure 141/81, heart rate 61, pulse ox 94% on CPAP. Nitropaste has been discontinued. Patient has been started on Coreg and Farxiga by Dr. Sargent. Physical examination: Gen: This is a 73-year-old female appears to be comfortable on CPAP VS: reviewed LUNGS: Diminished breath sounds, expiratory wheeze. No intercostal retractions. HEART: Regular rate and rhythm. Systolic ejection murmur murmur. ABDOMEN: Soft No tenderness. EXTREMITIES: Mild bilateral lower extremity edema. No calf tenderness. Assessment: NSTEMI possibly due to to COPD exacerbation COPD exacerbation Obstructive sleep apnea Hypertension Hyperlipidemia History of breast cancer status post bilateral mastectomy Cardiomyopathy with EF of 35% with recovery to normal but now at 40 to 45% Plan: Continue patient on current cardiac medications: Aspirin 81 mg daily, atorvastatin reduced to 40 mg daily, Coreg 3.125 mg twice daily, Farxiga 10 mg daily, valsartan 160 mg daily Continue treatment for COPD exacerbation No further cardiac workup at this time. Once patient is ready for discharge, she will follow-up in the office with Dr. Sargent in 2 weeks. Further recommendations to follow based upon clinical course Nurse practitioner note has been reviewed, I agree with documented findings and plan of care. Patient was seen and examined. Objective - Vital Signs Vital signs: Vital Signs Temp 97.8 F 09/13/24 23:10 Pulse 76 09/14/24 08:43 Resp 17 09/14/24 03:28 BP 141/81 09/14/24 03:28 Pulse Ox 94 L 09/14/24 03:28 FiO2 Intake & Output 0309/14/24 09/14/24 18:59 06:59 18:59 Intake Total 397 240 Output Total 900 Balance -503 240 Weight 107.5 kg Intake: IV 175 Oral 222 240 Output: Urine 900 Other: Voiding Method External Catheter External Catheter # Bowel Movements 1 - Labs CBC & Chem 7: 09/13/24 07:54 09/13/24 11:48 Labs: Abnormal Lab Results - Last 24 Hours (Table) 09/13/24 09/13/24 Range/Units 07:54 11:48 Carbon Dioxide 31 H (22-30) mmol/L BUN 32 H (7-17) mg/dL Glucose 156 H (74-99) mg/dL Hemoglobin A1c 6.2 H (<=6.0) %
[2024-09-14] MEDS: predniSONE 20 MG TAB PO SCH (12:04)
--- NOTE | 2024-09-14 13:29 | P.PN ---
Subjective Progress Note Date: 09/14/24 Patient is a 73-year-old female with past medical history significant for breast cancer status post bilateral mastectomy, DVT, hyperlipidemia, hypertension, former tobacco smoker, COPD, morbid obesity, obstructive sleep apnea with CPAP. Presents to the emergency department yesterday afternoon with a chief complaint of progressively worsening shortness of breath over the last 72 hours. She is chronically short of breath, especially with exertion, this is worsened since Sunday. Patient is known to have asthma/copd. Maintained on Symbicort outpatient basis. Does endorse occasional nonproductive cough, runny nose, previous sore throat earlier in the week. States has been sick with similar symptoms. Denies fevers or chills. No significant sputum production, hemoptysis, chest pain. Denies nausea, vomiting, diarrhea. Appetite has been fair. Viral screen was negative for influenza A/B, RSV, COVID. Denies any chest pain. Does have some bilateral lower extremity swelling. Chest CTA performed earlier this morning did not show any evidence of filling defects consistent with pulmonary embolism. No acute parenchymal process. Troponins were elevated at 0.079, 0.37, and 0.47 respectively. EKG: atrial rhythm, rate 72 bpm, minimal ST depressions. Cardiology is consulted. Patient previously started on IV heparin per protocol. CBC: WBC count 8, hemoglobin 13.4, platelets 189. Most recent aPTT 38. CMP: Sodium 137, potassium 4.1, chloride 101, serum bicarb 27, BUN 19, creatinine 0.9, glucose 121. LFTs not elevated. NT proBNP 822. Patient currently being evaluated in the emergency department. She is alert and fully oriented. CPAP is in the room and used at night. Sarah melendez, on 3 L/min nasal cannula. Non-labored breathing. Bilateral expiratory wheezes heard on auscultation. Heart rate is bradycardic, around 48 bpm. Blood pressure normotensive. On 09/11/2024, the patient continues to be stable hemodynamically. Free of any chest pain. Shortness of breath is improved. Nevertheless, she is having a junctional rhythm. Echocardiogram was also completed and the patient was found to have mild impairment of the LV function with an ejection fraction of 4045% and the patient has global hypokinesis more noted in the apex and the patient has mild RV dilatation, severe RA dilatation and segmental wall motion abnormalities also noted. Based on that, the patient is going to undergo a cardiac catheterization. Remains on Symbicort. Remains on DuoNeb. Remains on IV Solu-Medrol and the patient is on IV Solu-Medrol 60 mg every 6 hours. Rest of the medications remain unchanged. She is on normal saline at rate of 50 cc an hour. If she remains on IV heparin. The white cell count is 4.9 with a hemoglobin 17.8 and a platelet count of 191. BUN is 20 with a creatinine of 0.8. Sodium levels at 137 with a potassium level of 4.1. Troponins were abnormal as mentioned related to acute NSTEMI. On 09/12/2024, the patient is EKG showing a sinus rhythm. Slightly bradycardic. Still awaiting cardiac catheterization. Free of any chest pain. No significant cough or sputum production. Less bronchospastic and wheezy compared to yesterday. Remains on DuoNeb updrafts. Remains on IV Solu-Medrol. Remains on Symbicort. Remains on IV heparin. Rest of the medications remain unchanged. The white cell count is 11 hemoglobin 15.5 and a platelet count of 240. BUN 39 with a creatinine of 1.1. Sodium levels at 139 potassium level is at 3.4. The patient is not receiving any diuretics at this point in time. IV fluids are normal same rate of 50 cc an hour. On today's evaluation of 09/13/2024, the patient is being seen for a follow-up. The patient has no new complaints. No significant shortness of breath. No chest pain. Awaiting cardiac catheterization to be done this morning by cardiology. Meanwhile, she remains on IV fluids. Creatinine is down to 1.05 with a BUN of 33, sodium levels at 139, potassium is at 4, white cell count is at 9.6 with a hemoglobin of 14.7 and platelet count of 236. No other significant events overnight. On 09/14/2024, the patient is doing well. Less short of breath. Less bronchospastic and wheezy. Cardiac catheterization was completed yesterday and the patient was found to have nonocclusive coronary artery disease. No further coronary intervention was done and the patient was found to have mild disease involving the left circumflex distally and no obstruction in the RCA or LAD. She is free of any chest pain for now. The white cell count from yesterday was at 9.6. Electrolytes from today showed a BUN of 32 with a creatinine of 0.9. Sodium levels at 138. Remains on bronchodilators. Remains on IV Solu-Medrol and the patient will be transition to prednisone burst taper as of today. Objective - Vital Signs Vital signs: Vital Signs Temp 97.8 F 09/13/24 23:10 Pulse 76 09/14/24 08:43 Resp 17 09/14/24 03:28 BP 141/81 09/14/24 03:28 Pulse Ox 94 L 09/14/24 03:28 FiO2 Intake & Output 09/13/24 09/14/24 09/14/24 18:59 06:59 18:59 Intake Total 397 240 Output Total 900 Balance -503 240 Weight 107.5 kg Intake: IV 175 Oral 222 240 Output: Urine 900 Other: Voiding Method External Catheter External Catheter # Bowel Movements 1 - Exam GENERAL EXAM: Alert, morbidly obese 73-year-old female, on 3 L/min nasal cannula, nonlabored breathing, comfortable in no apparent distress. CPAP is in the room and on standby HEAD: Normocephalic and atraumatic EYES: Normal reaction of pupils, equal size. NOSE: Clear with pink turbinates. THROAT: No erythema or exudates. NECK: No masses, no JVD. CHEST: No chest wall deformity. LUNGS: Equal air entry with expiratory wheezing heard bilaterally throughout. No conversational dyspnea or accessory muscle use while at rest CVS: S1 and S2 normal with no audible murmur, regular rhythm. No extra heart sounds ABDOMEN: No hepatosplenomegaly, active bowel sounds, no guarding or rigidity. SPINE: No scoliosis or deformity SKIN: No rashes CENTRAL NERVOUS SYSTEM: No focal deficits, tone is normal in all 4 extremities. EXTREMITIES: There is bilateral lower extremity 1+ pitting edema. clubbing, or cyanosis. Peripheral pulses are intact. - Labs CBC & Chem 7: 09/13/24 07:54 09/13/24 11:48 Labs: Abnormal Lab Results - Last 24 Hours (Table) 09/13/24 09/13/24 Range/Units 07:54 11:48 Carbon Dioxide 31 H (22-30) mmol/L BUN 32 H (7-17) mg/dL Glucose 156 H (74-99) mg/dL Hemoglobin A1c 6.2 H (<=6.0) % Assessment and Plan Assessment: Acute asthma/COPD exacerbation, clinically improving with a combination of bronchodilators and steroids, clinically improving Acute non-ST segment elevation myocardial infarction, elevated troponins, rule out non-ST elevation HI, currently on IV heparin per protocol, cardiac catheterization was done and the patient has mild disease in the distal circumflex. Otherwise no other acute abnormalities noted. Acute hypoxemic respiratory failure, secondary to above, chest x-ray does not show any acute cardiopulmonary process. CT of the chest showed no evidence of any pulmonary embolism, the patient remains on oxygen 2 L/min nasal cannula Bradycardia, asymptomatic, junctional bradycardia. Remains hemodynamically stable CHF with impaired LV function with an ejection fraction of 45 %. Patient also has segmental wall motion abnormalities, mild RVE and severe LA dilatation. Hypertension History of hyperlipidemia Severe obstructive sleep apnea, maintained on CPAP with pressure of 16 cm H20 on outpatient basis Morbid obesity, with a BMI of 48.8 kg/m History of DVT History of breast cancer with previous bilateral mastectomy Plan: Cardiac cath was completed and the patient has nonocclusive disease Titrate oxygen flow to maintain saturation above 90%, currently on 2 L continue combination of duo nebs, Symbicort inhaler The patient will be taken off the IV Solu-Medrol start on a prednisone burst taper Viral 4 Plex unremarkable for influenza, RSV, COVID Continue CPAP at bedtime, with a pressure support of 16 cm H2O Continues on IV heparin per protocol, awaiting further recommendations from cardiology. Transthoracic echocardiogram was noted with an ejection fraction of 45% along with segmental wall motion abnormalities Cardiac catheterization results were noted Renal function stable continue to follow
[2024-09-15] MEDS: ATORVASTATIN 40 MG TAB PO SCH (08:47)
[2024-09-15 10:21] VITALS: RESP 20
--- NOTE | 2024-09-15 12:34 | P.DS ---
Providers Date of admission: 09/09/24 14:40 Expected date of discharge: 09/15/24 Attending physician: Shane Rodriguez MD Consults: 09/10/24 04:06 Consult Physician Routine Consulting Provider: Brittani Lieberman Consult Reason/Comments: COPD Do you want consulting provider notified?: Yes, Notify in am Primary care physician: Major Nazario Hospital Course: Discharge Diagnosis: Acute NSTEMI Nonobstructive CAD Bradycardia Systolic cardiomyopathy, EF 40 to 45% Acute COPD exacerbation Acute hypoxic respiratory failure secondary to above Obstructive sleep apnea Hypertension Hyperlipidemia Breast cancer status post bilateral mastectomy Depression Hospital Course: 73-year-old female with a past medical history of COPD not home oxygen dependent, obstructive sleep apnea CPAP dependent nightly, hypertension, hyperlipidemia, DVT, and breast cancer status post bilateral mastectomy 12/2023. She reports she follows with PCP Dr. Nazario, Dr. Sargent for cardiology and brand recorder Dr. Lieberman. She presented to the emergency department with a chief complaint of shortness of breath. She reports beginning to feel exertional dyspnea over the past couple days that she reports is rapidly worsened. Patient reports it has been accompanied by a productive cough of white sputum. She states shortness of breath was initially only with exertion but today just sitting at the kitchen table to drink a couple coffee she was experiencing conversational dyspnea and shortness of breath at rest so she told her she need to go to the hospital to be evaluated. She denies having any fevers, chills, diaphoresis, headache, lightheadedness, dizziness, chest pain, palpitations, abdominal pain, nausea, vomiting, or experiencing any increased swelling in her lower extremities. Upon arrival to our facility, patient underwent evaluation in the emergency department. Vital signs upon arrival show blood pressure 156/82, heart rate 76, respiratory rate 18, temp 97.5 F, and SpO2 of 91% on room air. EKG was completed showing sinus mechanism at 72 bpm with an incomplete right bundle branch block upon personal review and interpretation. Chest x-ray completed negative for acute cardiopulmonary process showing COPD changes with flattening of the diaphragm and increased lucency of lungs. Labs completed and reviewed. CBC unremarkable. BMP showing mild prerenal azotemia with BUN of 19. Blood glucose 121. Calcium 9.6. Liver profile unremarkable. Troponin was elevated at 0.079 with proBNP of 822. Influenza A, influenza B, RSV, and COVID PCR were negative. CTA did not show any acute PE. Patient started on heparin infusion for treatment of NSTEMI and admitted under our services with consultation to cardiology and pulmonology. Echocardiogram showed LVEF 40 to 45%. Patient was started on steroids, bronchodilators as well. Cardiac cath showed mild disease in the distal left circumflex, nonobstructive disease in the RCA and LAD. Being discharged on guideline directed medical therapy for heart failure. Completed course of steroids inpatient. Patient seen and examined at bedside. Vital signs reviewed and stable. General: Nontoxic, no distress, appears at stated age, obese Derm: Warm, dry Head: Atraumatic, normocephalic, symmetric Eyes: EOMI, no lid lag, anicteric sclera Mouth: No lip lesion, mucus membranes moist Cardiovascular: S1S2 reg, no murmur Lungs: CTA bilateral, no rhonchi, no rales, no accessory muscle use, supplemental oxygen Abdominal: Soft, nontender to palpation, no guarding, no appreciable organomegaly Ext: No gross muscle atrophy, no edema, no contractures Neuro: CN II-XI grossly intact, no focal neuro deficits Psych: Alert, oriented, appropriate affect A total of 32 minutes of time were spent preparing this complex discharge summary. Patient was discharged on 09/15/2024 at 957. Plan - Discharge Summary Discharge Rx Participant: No New Discharge Prescriptions: New Dapagliflozin Propanediol [Farxiga] 10 mg PO DAILY #90 tab Aspirin 81 mg PO DAILY #90 tab carvediloL [Coreg] 3.125 mg PO BID-W/MEALS #90 tab Valsartan [Diovan] 160 mg PO DAILY #90 tab Continue Simvastatin [Zocor] 40 mg PO Q2D@2100 PARoxetine [Paxil] 20 mg PO HS Furosemide [Lasix] 20 mg PO DAILY PRN PRN Reason: Edema Melatonin 3 mg PO HS Albuterol Inhaler [Ventolin Hfa Inhaler] 2 puff INHALATION RT-QID PRN PRN Reason: Shortness Of Breath Budesonide-Formot 160-4.5 Mcg [Symbicort 160-4.5 Mcg Inhaler] 2 puff INHALATION RT-BID #1 each guaiFENesin [Mucinex] 600 tab PO BID PRN PRN Reason: COUGH/CONGESTION Acetaminophen Tab [Tylenol] 650 mg PO Q6H PRN PRN Reason: Pain Cholecalciferol (Vitamin D3) [Vitamin D3 (50 Mcg = 2000 Iu)] 50 mcg PO HS Discontinued Naproxen Sodium [Aleve] 220 mg PO DAILY PRN PRN Reason: Pain Valsartan/Hydrochlorothiazide [Valsartan-Hctz 320-25 mg Tab] 1 tab PO DAILY Discharge Medication List PARoxetine [Paxil] 20 mg PO HS 05/06/18 [History] Simvastatin [Zocor] 40 mg PO Q2D@2100 05/06/18 [History] Albuterol Inhaler [Ventolin Hfa Inhaler] 2 puff INHALATION RT-QID PRN 10/21/23 [History] Melatonin 3 mg PO HS 10/21/23 [History] Budesonide-Formot 160-4.5 Mcg [Symbicort 160-4.5 Mcg Inhaler] 2 puff INHALATION RT-BID #1 each 10/26/23 [Rx] Acetaminophen Tab [Tylenol] 650 mg PO Q6H PRN 03/20/24 [History] guaiFENesin [Mucinex] 600 tab PO BID PRN 03/20/24 [History] Cholecalciferol (Vitamin D3) [Vitamin D3 (50 Mcg = 2000 Iu)] 50 mcg PO HS 09/09/24 [History] Furosemide [Lasix] 20 mg PO DAILY PRN 09/09/24 [History] Aspirin 81 mg PO DAILY #90 tab 09/15/24 [Rx] Dapagliflozin Propanediol [Farxiga] 10 mg PO DAILY #90 tab 09/15/24 [Rx] Valsartan [Diovan] 160 mg PO DAILY #90 tab 09/15/24 [Rx] carvediloL [Coreg] 3.125 mg PO BID-W/MEALS #90 tab 09/15/24 [Rx] Follow up Appointment(s)/Referral(s): Manjit Sargent MD [STAFF PHYSICIAN] - 2 Weeks Major Nazario MD [Primary Care Provider] - 1-2 days Patient Instructions/Handouts: Heart Failure (DC), COPD (Chronic Obstructive Pulmonary Disease) (DC) Activity/Diet/Wound Care/Special Instructions: Please see PCP, cardiology and pulmonology. Discharge Disposition: HOME WITH HOME HEALTH SERVICES
[2024-09-15 12:57] VITALS: BP 138/62; PULSE 50; TEMP 97.7
== END 2024-09-15 14:36 | disposition home or self-care (01) | DRG 190 ==
LOC: EC 12:09 → 3SCARD 14:40
PROVIDERS: ADMIT Internal Medicine; ATTEND Internal Medicine
PROC: B2111ZZ Fluoroscopy of Multiple Coronary Arteries using Low Osmolar Contrast (ICD-10-PCS; 2024-09-13)
PROC: 4A023N7 Measurement of Cardiac Sampling and Pressure, Left Heart, Percutaneous Approach (ICD-10-PCS; principal; 2024-09-13 09:30)
DX: J44.1 Chronic obstructive pulmonary disease with (acute) exacerbation (principal); I21.4 Non-ST elevation (NSTEMI) myocardial infarction; J96.01 Acute respiratory failure with hypoxia; J45.901 Unspecified asthma with (acute) exacerbation; I42.8 Other cardiomyopathies; I11.0 Hypertensive heart disease with heart failure; E66.01 Morbid (severe) obesity due to excess calories; F32.A Depression, unspecified; Z68.42 Body mass index [BMI] 45.0-49.9, adult; I50.9 Heart failure, unspecified; I25.10 Atherosclerotic heart disease of native coronary artery without angina pectoris; R00.1 Bradycardia, unspecified; G47.33 Obstructive sleep apnea (adult) (pediatric); I45.10 Unspecified right bundle-branch block; E78.5 Hyperlipidemia, unspecified; Z85.3 Personal history of malignant neoplasm of breast; Z90.13 Acquired absence of bilateral breasts and nipples; Z87.891 Personal history of nicotine dependence; Z79.51 Long term (current) use of inhaled steroids; Z79.899 Other long term (current) drug therapy; Z88.6 Allergy status to analgesic agent; Z88.8 Allergy status to other drugs, medicaments and biological substances; Z88.9 Allergy status to unspecified drugs, medicaments and biological substances; Z86.718 Personal history of other venous thrombosis and embolism; Z79.82 Long term (current) use of aspirin
CPT/HCPCS: 36415; 71046; 71275; 80048; 80053; 80061; 83036; 83735; 83880; 84484; 85025; 85027; 85730; 87636; 93005; 93306; 94640; 94660; 94760; 96365; 96366; 96375; 96376; 99291

== ENCOUNTER → 2025-01-08 | Outpatient (CLI) | payer MEDICARE ==
[2025-01-08 15:00] VITALS: BP 153/93; PULSE 77; RESP 17; TEMP 97.8
--- NOTE | 2025-01-08 15:08 | P.PN ---
Subjective Progress Note Date: 01/08/25 Principal diagnosis: DCIS left breast 01-08-25 Principal diagnosis: DCIS 2023 left breast 08-01-24 Principal diagnosis: DCIS left breast Fibrocystic breast changes/status post right breast abscess 2019 not recurrent, abnormal left breast mammogram microcalcifications + DCIS; bilateral mastectomies Gauri is a 73-year-old white female status post incision and drainage of a large abscess in the right breast on [id number]. She had a bilateral mammogram on 01-18-24 which was benign BIRADS 1, however with review personally with Dr. Retana there are any area of calcifications in the left breast for which stereotactic core biopsy has been recommended. She underwent a stero core biopsy on 01-31-24 of the left breast. The pathology was DCIS. Her case was presented at tumor board on 03-11-24. She has elected for a bilateral mastectomy. She does want to have reconstruction. After discussion she wishes to have a sentinal node biopsy as well. She had a bilateral mastectomy on 03-26-24. Left breast 6 mm DCIS, and LCIS. SNB (-). Right breast multifocal ALH/LCIS. ADH and focal flat epithelial atypia. She had some difficulty with wound healing of the right medial mastectomy incision. She was seen by medical oncology and no further treatment recommended. note medical oncology 04-17-24 reviewed 01-08-25 Gauri is a 74-year-old white female status post incision and drainage of a large abscess in the right breast on [id number]. She had a bilateral mammogram on 01-18-24 which was benign BIRADS 1, however with review personally with Dr. Retana there are any area of calcifications in the left breast for which stereotactic core biopsy has been recommended. She underwent a stero core biopsy on 01-31-24 of the left breast. The pathology was DCIS. Her case was presented at tumor board on 03-11-24. She has elected for a bilateral mastectomy. She did not want to have reconstruction. After discussion she wishes to have a sentinal node biopsy as well. She had a bilateral mastectomy on 03-26-24. Left breast 6 mm DCIS, and LCIS. SNB (-). Right breast multifocal ALH/LCIS. ADH and focal flat epithelial atypia. She had some difficulty with wound healing of the right medial mastectomy incision. She was seen by medical oncology and no further treatment recommended. She has had a very rough day today as her sister just recently and they buried her ashes today. She does note that she has some redundant tissue in the medial aspect of the left mastectomy scar and at a future date may want to have this revised. note medical oncology 11-04-24 reviewed caffeine: 2 cups/day nicotine: stopped 8 years ago chocolate: rare hormones: none; BCP: never used Family History: father: pancreatic sister: cervical Hormonal history: menarche: 10 breast fed: no, age at first : 18 menopause: 46 BCP: none hormones: none Surgical history: 1. Tonsillectomy 2. Appendectomy 3. Bilateral knee replacement 4. Cataract surgery 5. I&D right breast abscess 6. bilateral mastectomies left SNB Medical history: 1.HTN 2. back pain/ arthritis 3. sleep apnea 4. sciatic pain 5. COPD Social: smoke:stopped 5 years ago alcohol: Occasional Marijuana: Negative - Constitutional Constitutional: Denies chills, Denies fever - EENT Comment: Cataract surgery Ears: deny: decreased hearing, tinnitus Ears, nose, mouth and throat: Reports sinus pressure, Denies headache, Denies sore throat - Breasts Breasts: bilateral: as per HPI - Cardiovascular Cardiovascular: Reports high blood pressure - Respiratory Comment: former smoker Respiratory: Reports cough - Gastrointestinal Gastrointestinal: Denies abdominal pain, Denies diarrhea, Denies nausea, Denies vomiting - Genitourinary (Female) Genitourinary: Denies dysuria, Denies hematuria - Menstruation Menstruation: Reports postmenopausal - Musculoskeletal Comment: back pain - Integumentary Integumentary: Denies pruritus, Denies rash - Neurological Neurological: Denies numbness, Denies weakness - Psychiatric Psychiatric: Reports anxiety, Reports depression - Endocrine Endocrine: Reports weight change - Hematologic/Lymphatic Comment: none - Allergic/Immunologic Allergic/Immunologic: Reports seasonal allergies Objective - Vital Signs Vital signs: Intake & Output 01/07/25 01/08/25 01/08/25 18:59 06:59 18:59 Weight 131.542 kg - Constitutional General appearance: Present: cooperative - EENT Eyes: Present: EOMI ENT: Present: hearing grossly normal - Neck Neck: Present: normal ROM - Respiratory Respiratory: bilateral: CTA - Cardiovascular Rhythm: regular Heart sounds: normal: S1, S2 - Integumentary Integumentary: Present: normal turgor - Musculoskeletal Musculoskeletal: Present: gait normal - Psychiatric Psychiatric: Present: A&O x's 3, appropriate affect, intact judgment & insight - Additional findings Additional findings: Breast exam: BRA: 52DDD in the past now bilateral mastectomies Inspection: Bilateral mastectomies Palpation: Right breast: Right chest wall incision clean and dry well-healed no evidence of any disease Right axilla: No adenopathy of concern Left chest wall: Incision clean and dry no evidence of any disease, redundant tissue medial aspect of left chest wall incision Left axilla: No adenopathy of concern Assessment and Plan Assessment: Assessment and Plan Assessment: Fibrocystic breast changes/DCIS status post bilateral mastectomies Back pain Hypertension Shortness of breath with activity Redundant tissue medial aspect left chest wall incision Plan: follow up in 6 months for surveillance, may wish for revision of incision left chest wall will discuss at next visit CC: Dr. Nazario
== END ==
LOC: WWCWWP 14:32
PROVIDERS: ATTEND Surgery
DX: D05.12 Intraductal carcinoma in situ of left breast (principal); N60.19 Diffuse cystic mastopathy of unspecified breast; I10 Essential (primary) hypertension; M54.9 Dorsalgia, unspecified; R06.02 Shortness of breath; Z90.13 Acquired absence of bilateral breasts and nipples; Z88.8 Allergy status to other drugs, medicaments and biological substances; Z88.1 Allergy status to other antibiotic agents; Z87.891 Personal history of nicotine dependence